=== PATIENT | female | born 1960 | race Caucasian/White ===

== ENCOUNTER 2020-07-10 17:18 | Outpatient (REF) | payer OTHER, SELFPAY ==
--- NOTE | 2020-07-10 17:23 | XR_ITS ---
EXAMINATION: XR KNEE, RIGHT CLINICAL INFORMATION: Right knee pain. COMPARISON: None TECHNIQUE: Four views of the right knee. FINDINGS: There is mild narrowing lateral knee joint compartment and mild narrowing patellofemoral joint. There is [id number] effusion. Hoffa's fat pad appears normal. There is no fracture or dislocation or destructive process. No erosive changes or visible chondrocalcinosis. There is no lateralization or tilting patella. XR/XR knee RT 4V IMPRESSION: 1. Mild narrowing lateral knee joint compartment and borderline narrowing patellofemoral joint. 2. Gshhi-gz-ovfadqus effusion.
== END 2020-07-10 17:19 | disposition home or self-care (01) ==
LOC: HO.XRAY 17:18
PROVIDERS: PCP Internal Medicine; Visit Provider Internal Medicine
DX: M25.561 Pain in right knee (principal)
CPT/HCPCS: 73564

== ENCOUNTER → 2020-10-02 13:47 | Outpatient (BNVA) | payer OTHER, SELFPAY | PROVIDERS: Visit Provider Orthopaedic Surgery | DX: M23.90 Unspecified internal derangement of unspecified knee (principal) | CPT/HCPCS: 20610; 99202; J1100 ==

== ENCOUNTER → 2021-01-01 14:19 | Outpatient (BNVA) | payer OTHER, SELFPAY | PROVIDERS: Visit Provider Orthopaedic Surgery | DX: M23.91 Unspecified internal derangement of right knee (principal) | CPT/HCPCS: 99212 ==

== ENCOUNTER 2021-01-23 19:14 | Outpatient (REF) | payer OTHER, SELFPAY ==
--- NOTE | ~2021-01-23 | MR_ITS ---
EXAMINATION: MR KNEE WITHOUT CONTRAST, RIGHT CLINICAL INFORMATION: Right knee pain for 6 months. COMPARISON: Right knee radiographs dated 07/10/2020. TECHNIQUE: MRI of the knee without contrast was performed using routine sequences on a high-field scanner. FINDINGS: MENISCI: Medial Meniscus: Obliquely oriented horizontal tearing in the periphery and central third of the posterior horn (4:7-9). Lateral Meniscus: Horizontal cleavage tear in the anterior horn extends into complex tearing of the body and posterior horn which are absent. Macerated meniscal tissue in is noted in the lateral recess. LIGAMENTS: Cruciate: Intact Collateral: Intact EXTENSOR MECHANISM: Intact ARTICULAR CARTILAGE/BONE: Patellofemoral Compartment: Tiny marginal spurs. Mild thinning of the median ridge articular cartilage inferiorly. Mild thinning of the bilateral trochlear articular cartilage. Medial Compartment: Focal thinning and fissuring of the weightbearing femoral condyle articular cartilage centrally (4:9), (5:10). Lateral Compartment: There is full-thickness cartilage loss of the femoral condyle and tibial plateau and posterior femoral condyle cartilage. Bone on bone articulation with underlying subchondral sclerosis and marked underlying subchondral edema. JOINT FLUID AND BURSAE: Moderate joint effusion and synovitis. MR/MR knee RT wo con IMPRESSION: Right knee: 1. Horizontal cleavage tear in the anterior horn of the lateral meniscus. Absent body and posterior horn of the lateral meniscus secondary to complex tearing. Macerated meniscal tissue noted in the lateral recess. 2. Obliquely oriented horizontal tearing in the periphery and central third of the posterior horn of the medial meniscus. 3. Complete cartilage loss throughout the lateral tibiofemoral compartment with [id number] articulation. Mild patellofemoral and medial patellofemoral compartment chondrosis. 4. Intact cruciate and collateral ligaments 5. Moderate joint effusion and synovitis.
== END 2021-01-23 19:15 | disposition home or self-care (01) ==
LOC: HO.MRI 19:14
PROVIDERS: PCP Internal Medicine; Visit Provider Orthopaedic Surgery
DX: M23.91 Unspecified internal derangement of right knee (principal)
CPT/HCPCS: 73721

== ENCOUNTER → 2021-02-02 15:04 | Outpatient (BNVA) | payer OTHER, SELFPAY | PROVIDERS: Visit Provider Orthopaedic Surgery | DX: M23.90 Unspecified internal derangement of unspecified knee (principal); M17.11 Unilateral primary osteoarthritis, right knee | CPT/HCPCS: 99212 ==

== ENCOUNTER → 2021-03-23 15:44 | Outpatient (BNVA) | payer OTHER, SELFPAY | PROVIDERS: PCP Internal Medicine; Visit Provider Physician Assistant ==

== ENCOUNTER 2021-03-25 06:06 | Day surgery (SDC) | payer OTHER, SELFPAY ==
[2021-02-13 08:39] VITALS: BMI 22.8
--- NOTE | 2021-02-17 08:17 | HO.ANESPROP2 ---
HPI - Anesthesia Eval Consult details Narrative: 60yo F for Right Knee Arthroscopy PMFSH Active Problems Active Problems: All Active Problems (Updated 02/13/21 @ 08:39 by Michelle Andrew) Arthritis of right knee (Acute) Knee locking (Acute) Rheumatoid arthritis (Acute) Osteoarthritis of hip (Acute) Past Medical History Medical History (Updated 02/13/21 @ 08:39 by Michelle Andrew) Depression High cholesterol Knee locking Osteoarthritis of hip Osteoporosis Rheumatoid arthritis Family History Family History Father Cancer Mother Bone cancer Osteoporosis Surgical History Surgical History (Updated 02/13/21 @ 08:38 by Michelle Andrew) H/O left wrist surgery History of hip replacement Hx of bilateral cataract extraction Hx of section Hx of colonoscopy Social History Social History (Updated 02/13/21 @ 08:41 by Michelle Andrew) Alcohol intake: current Alcohol intake frequency: holidays/special occasions only Patient Tobacco Use Status: Former Tobacco user Quit Date: 2014 Tobacco use type: Cigarette Current occupational status: disabled Current occupation: rt handed Meds Allergies Allergy/AdvReac Type Severity Reaction Status Date / Time acetaminophen [From Tylenol] AdvReac Intermediate nausea and Verified 02/13/21 08:35 vomitting codeine AdvReac Intermediate nausea and Verified 02/13/21 08:35 vomitting Home Medications Medication Instructions Recorded Confirmed Last Taken Type duloxetine 60 mg capsule,delayed 60 mg PO BEDTIME 06/24/20 02/13/21 Unknown History release atorvastatin 10 mg PO BEDTIME 02/13/21 02/13/21 Unknown History cholecalciferol (vitamin D3) 25 mcg PO BEDTIME 02/13/21 02/13/21 Unknown History [Vitamin D3] Exam Exam Date and Time: February 17, 2021 0817 Height,Weight and Vital Signs: Height 5 ft 2 in Weight 56.699 kg Assessment and Plan Assessment Anesthesia Assessment: Chart Reviewed
--- NOTE | 2021-03-24 10:22 | P.CONAN_ITS ---
Documented by User: Dot Prieto NP 03/24/21 10:24 HPI - Anesthesia Eval Consult details Narrative: 60yo F for Right Knee Arthroscopy PMFSH Active Problems Active Problems: All Active Problems (Updated 02/13/21 @ 08:39 by Michelle Andrew) Arthritis of right knee (Acute) Knee locking (Acute) Rheumatoid arthritis (Acute) Osteoarthritis of hip (Acute) Past Medical History Medical History Depression High cholesterol Knee locking Osteoarthritis of hip Osteoporosis Rheumatoid arthritis Family History Family History Father Cancer Mother Bone cancer Osteoporosis Surgical History Surgical History H/O left wrist surgery History of hip replacement Hx of bilateral cataract extraction Hx of section Hx of colonoscopy Social History Social History Alcohol intake: current Alcohol intake frequency: holidays/special occasions only Patient Tobacco Use Status: Former Tobacco user Quit Date: 2014 Tobacco use type: Cigarette Are you DNR?: No Advance Directives: No Advance Directives Information Provided: No Advance Directives on File: No Current occupational status: disabled Current occupation: rt handed Meds Allergies Allergy/AdvReac Type Severity Reaction Status Date / Time acetaminophen [From Tylenol] AdvReac Intermediate nausea and Verified 02/13/21 08:35 vomitting codeine AdvReac Intermediate nausea and Verified 02/13/21 08:35 vomitting Home Medications Medication Instructions Recorded Confirmed Last Taken Type atorvastatin 10 mg tablet 10 mg PO BEDTIME 02/13/21 02/13/21 Unknown History cholecalciferol (vitamin D3) 25 25 mcg PO BEDTIME 02/13/21 02/13/21 Unknown History mcg (1,000 unit) capsule (Vitamin D3) Exam Exam Date and Time: March 24, 2021 1022 Height,Weight and Vital Signs: Height 5 ft 2 in Weight 56.699 kg Assessment and Plan Assessment Anesthesia Assessment: Chart Reviewed Documented by User: Jolene Lujan MD 03/25/21 07:09 [facility] Past Medical History Medical History Depression High cholesterol Knee locking Osteoarthritis of hip Osteoporosis Rheumatoid arthritis Family History Family History Father Cancer Mother Bone cancer Osteoporosis Family history of problems with anesthesia: No Surgical History Surgical History H/O left wrist surgery History of hip replacement Hx of bilateral cataract extraction Hx of section Hx of colonoscopy History of Problems with Anesthesia: No Social History Social History Alcohol intake: current Alcohol intake frequency: holidays/special occasions only Patient Tobacco Use Status: Former Tobacco user Quit Date: 2014 Tobacco use type: Cigarette Are you DNR?: No Advance Directives: No Advance Directives Information Provided: No Advance Directives on File: No Current occupational status: disabled Current occupation: rt handed Meds Allergies Allergy/AdvReac Type Severity Reaction Status Date / Time acetaminophen [From Tylenol] AdvReac Intermediate nausea and Verified 02/13/21 08:35 vomitting codeine AdvReac Intermediate nausea and Verified 02/13/21 08:35 vomitting Home Medications Medication Instructions Recorded Confirmed Last Taken Type atorvastatin 10 mg tablet 10 mg PO BEDTIME 02/13/21 02/13/21 Unknown History cholecalciferol (vitamin D3) 25 25 mcg PO BEDTIME 02/13/21 02/13/21 Unknown History mcg (1,000 unit) capsule (Vitamin D3) Exam Airway Mallampati Class: II TM Dist: >3cm Neck ROM: Limited Assessment and Plan Assessment Anesthesia Assessment: Anesthesia Plan Discussed Final Anesthetic Review Family History of Problems with Anesthesia: No History of Problems with Anesthesia: No NPO: Yes ASA Class: II Final Preanesthetic Review: No Changes in Pt Med Stat, Meds/Allgs Chart Reviewed, Consent Obtained/Reviewed and Anes Risks/Benef Reviewed Patient Risk: Low Procedure Risk: Low Assessment/Block/Sedation in SS: Assess/Block/Sedation-SS Anesthetic Plan Anesthetic Plan: GA Disposition: Standard PACU
[2021-03-25] VITALS (13 sets, daily range): BP systolic 105–182; BP diastolic 60–91; PULSE 72–86; RESP 16–18; TEMP 36.6–37.1; O2SAT 94–99
[2021-03-25] MEDS: Lactated Ringers 1,000 ML 100 ML IVCONT (06:47)
--- NOTE | 2021-03-25 07:22 | MHC.SHP ---
Pre-Procedural Eval Section A Date of Service: 03/25/21 The patient is an INPATIENT: No Changes since office visit: Yes Patient answered all questions; No Cold of Flu in the past 2 weeks, No New Medical Problems and No Changes in Medication The History & Physical has been completed within 30 days and I have reviewed it.: Yes Section B Chief Complaint: internal derangement of knee Allergies: Allergies Allergy/AdvReac Type Severity Reaction Status Date / Time acetaminophen [From Tylenol] AdvReac Intermediate nausea and Verified 02/13/21 08:35 vomitting codeine AdvReac Intermediate nausea and Verified 02/13/21 08:35 vomitting Plan I have reviewed the history and physical and performed a pertinent physical examination on my patient. No changes have occurred unless specified.
--- NOTE | 2021-03-25 08:26 | P.BOP_ITS ---
Brief Operative Note Date of Service: 03/25/21 Pre-op diagnosis: right knee meniscus tear Post-op diagnosis: same Procedure: lateral meniscectomy right knee chondroplasty Surgeon: Tio Levy MD Anesthesia: GETA and local Was an Lead Network Architect used for this Procedure?: No Estimated blood loss (mL): 0 Tourniquet time (min): 30 IV fluids (mL): 800 Pathology: none sent Condition: stable Disposition: PACU
--- NOTE | 2021-03-25 08:31 | W.PM.OPN ---
Operative Note Operative Note Date of Service: 03/25/21 Narrative: Pre-op diagnosis: right knee meniscus tear Post-op diagnosis: same; OA right knee Procedure: lateral meniscectomy right knee chondroplasty Surgeon: Tio Levy MD Anesthesia: GETA and local Was an Joiners Supervisor used for this Procedure?: No Estimated blood loss (mL): 0 Tourniquet time (min): 30 IV fluids (mL): 800 Pathology: none sent Condition: stable Disposition: PACU Procedure in detail: Patient was brought to the operating room placed supine on the arthroscopic table and prepped and draped in standard sterile fashion. A time-out was called to identify proper site proper procedure proper surgeon and IV antibiotics per weight were administered. I began by exsanguinating the limb and insufflating tourniquet to 300 mm Hg. Then made a standard anterolateral stab incision. The knee was insufflated with water and 30 degree arthroscope was placed. There was grade 2 fibrillations of the patella. Trochlea was clean. There were chondral fragments in the lateral gutter. Medial gutter was clean. I descended into the medial compartment where I made my medial portal under direct visualization. There was an intact meniscus and a full thickness focal chondral defect in the weight bearing portion of MFC measuring about 1 cm x 5 mm. medial meniscus. This was debrided down to stable flaps. Medial meniscus was stable without tears. I then examined the notch and there was intact ACL but there was a bucket handle tear of the lateral meniscus that was completely displaced into the notch. This was chronic and unreduceable. Furthermore she had g4 eburnation of the weight bearing portion of the LFC and the LTP. I used a combination of biter shaver and cautery to remove the unstable meniscus. 100% of the meniscal volume was removed. Once I was satisfied with this I removed all instrumentation and closed the portals with skin glue. 25 mL of 2% Marcaine with epinephrine was injected into the joint and the surrounding soft tissues. Patient was then placed in sterile dressing extubated brought recovery room stable condition. There were no known complications.
[2021-03-25] MEDS: fentaNYL citrate/PF 100 MCG/2 ML VIAL 50 MCG IVPUSH ×4 (08:45→09:15)
[2021-03-25] MEDS: oxyCODONE HCl Immed Release 5 MG TABLET PO (08:45)
== END 2021-03-25 10:29 | disposition home or self-care (01) ==
PROVIDERS: PCP Internal Medicine; Visit Provider Orthopaedic Surgery
PROC: (CPT 29870; principal; 2021-03-25 07:30)
DX: S83.251A Bucket-handle tear of lateral meniscus, current injury, right knee, initial encounter (principal); M23.91 Unspecified internal derangement of right knee; M17.11 Unilateral primary osteoarthritis, right knee; R26.2 Difficulty in walking, not elsewhere classified; X58.XXXA Exposure to other specified factors, initial encounter; Y93.9 Activity, unspecified; Y92.9 Unspecified place or not applicable; Y99.8 Other external cause status; M81.0 Age-related osteoporosis without current pathological fracture; M06.9 Rheumatoid arthritis, unspecified; Z79.899 Other long term (current) drug therapy; Z88.8 Allergy status to other drugs, medicaments and biological substances; Z87.891 Personal history of nicotine dependence
CPT/HCPCS: 29881; J0171; J0690; J1100; J1885; J2250; J2405; J3010

== ENCOUNTER → 2021-04-10 13:12 | Outpatient (BNVA) | payer OTHER, SELFPAY | PROVIDERS: Visit Provider Physician Assistant | DX: M17.11 Unilateral primary osteoarthritis, right knee (principal); M81.0 Age-related osteoporosis without current pathological fracture; E78.00 Pure hypercholesterolemia, unspecified; S83.281A Other tear of lateral meniscus, current injury, right knee, initial encounter; X58.XXXA Exposure to other specified factors, initial encounter; Y93.9 Activity, unspecified; Y92.9 Unspecified place or not applicable; Y99.8 Other external cause status; Z88.6 Allergy status to analgesic agent; Z96.651 Presence of right artificial knee joint; Z87.891 Personal history of nicotine dependence | CPT/HCPCS: 99212 ==

== ENCOUNTER 2021-04-20 15:47 | Outpatient (REF) | payer OTHER, SELFPAY | END 2021-04-20 15:48 | disposition home or self-care (01) | LOC: HO.LAB 15:47 | PROVIDERS: PCP Internal Medicine; Visit Provider Internal Medicine | DX: Z20.822 Contact with and (suspected) exposure to COVID-19 (principal) | CPT/HCPCS: C9803; U0003; U0005 ==

== ENCOUNTER 2022-03-08 07:44 | Outpatient (REF) | payer OTHER, SELFPAY | END 2022-03-08 07:45 | disposition home or self-care (01) | LOC: HO.HOSX 07:44 | PROVIDERS: Visit Provider Physician Assistant | DX: M25.561 Pain in right knee (principal); M17.11 Unilateral primary osteoarthritis, right knee | CPT/HCPCS: 20610; 99212; J1040 ==

== ENCOUNTER 2022-03-29 11:58 | Outpatient (REF) | payer OTHER, SELFPAY | END 2022-03-29 11:59 | disposition home or self-care (01) | LOC: HO.HOSX 11:58 | PROVIDERS: Visit Provider Orthopaedic Surgery | DX: Z13.89 Encounter for screening for other disorder (principal) ==

== ENCOUNTER 2022-05-27 14:55 | Outpatient (REF) | payer OTHER, SELFPAY ==
--- NOTE | ~2022-05-27 | XR_ITS ---
EXAMINATION: XR PELVIS CLINICAL INFORMATION: Pain in unspecified hip COMPARISON: Sacrum and coccyx radiographs 03/21/2020 TECHNIQUE: AP view of the pelvis. FINDINGS: Left total hip arthroplasty. Hardware appears well seated without evidence of complication. There is heterotopic ossification adjacent the greater trochanter and left superior acetabulum. Moderate to severe axial joint space narrowing of the right hip with irregularity and subchondral cyst formation of the right femoral head. 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 No acute hip or pelvic fracture seen. Both sacroiliac joints are patent. XR/XR pelvis 1-2V IMPRESSION: Left total hip arthroplasty in satisfactory alignment. No complication evident. Moderate to severe osteoarthritis of the right hip with acetabular protrusio.
== END 2022-05-27 14:56 | disposition home or self-care (01) ==
LOC: HO.HOSX 14:55
PROVIDERS: Visit Provider Orthopaedic Surgery
DX: M16.11 Unilateral primary osteoarthritis, right hip (principal); Z96.642 Presence of left artificial hip joint; Z98.890 Other specified postprocedural states
CPT/HCPCS: 72170; 99212

== ENCOUNTER 2023-07-18 15:07 | Outpatient (AMB) | payer OTHER, SELFPAY ==
--- NOTE | 2023-07-18 15:08 | A.OFFVIS_ITS ---
Intake Vital Signs 07/18/23 15:12 Height 5 ft 2 in Weight 125 lb BMI 22.9 Intake Visit Reasons: New Prob - Right Hip Pain Intake Note: Radha is a 62 year old female who presents today for a follow up of her right hip Allergies acetaminophen [From Tylenol] Adverse Reaction (Intermediate, Verified 03/08/22 15:38) nausea and vomitting codeine Adverse Reaction (Intermediate, Verified 03/08/22 15:38) nausea and vomitting HPI New Prob - Right Hip Pain HPI Details Radha is a 62 year old woman who returns for a follow up of her right hip OA. She complains of pain with daily activity, localized to the groin. She denies any prior treatment. She has a left MARIO in 06/2015 in at an outside clinic, and she says her current right side symptoms are very similar to her left side prior to her surgery. [facility] Medical History Depression High cholesterol Knee locking Osteoarthritis of hip Osteoporosis Rheumatoid arthritis Surgical History H/O left wrist surgery History of hip replacement Hx of bilateral cataract extraction Hx of section Hx of colonoscopy Family History Father Cancer Mother Bone cancer Osteoporosis Social History Alcohol intake: current Alcohol intake frequency: holidays/special occasions only Patient Tobacco Use Status: Former Tobacco user Quit Date: 2014 Tobacco use type: Cigarette Current occupational status: disabled Current occupation: rt handed Review of Systems Const All systems reviewed & are unremarkable except as noted in HPI and below Physical Exam Vital Signs: BMI result Body Mass Index 22.9 Const General: no acute distress, alert and awake Orientation/consciousness: patient oriented x3 HEENT Head: Yes normocephalic and Yes atraumatic Eyes EOM: EOMs intact bilaterally Resp Effort & Inspection: normal respiratory effort and able to speak in complete sentences Cardio Jugular venous distension: no JVD Skin General skin exam: turgor normal Rashes: no rashes Neuro General: patient oriented x3 Extrem Other: + impingement +stinchfield 90/25/0 +gait antalgia Psych Appearance: grossly normal Affect: normal affect Attitude: cooperative Results Reviewed Results Reviewed: I personally reviewed relevant radiographs. Right hip OA with coxa profunda and Assessment & Plan Assessment & Plan (1) Osteoarthritis of hip: Code(s): M16.9 - Osteoarthritis of hip, unspecified Plan: 62 yo F with right hip OA. She is unable to walk without pain and had a successful left MARIO. I recommend left hip arthroplasty. SHe has been scheduled in the past but it was cancelled during [facility]. I discussed the risks benefits and alternatives including but not limited to the risk of pain, infection, stiffness, need for further surgery as well as potential medical complications such as blood clots, pulmonary embolism and cardiac complications. She expressed understanding and will talk with our surgical assist. Plan Scribed for Tio Levy MD by Óscar Elizabeth, medical assisting instructor, on 07/18/23 at 3:20 PM, EST. Coding Level of Care Code Est Pt Level 4 (83717) Diagnoses Osteoarthritis of hip M16.9
[2023-07-18 15:12] VITALS: BMI 22.9
== END 2023-07-18 16:05 | disposition home or self-care (01) ==
PROVIDERS: PCP Internal Medicine; Visit Provider Orthopaedic Surgery
DX: M16.11 Unilateral primary osteoarthritis, right hip (principal)
CPT/HCPCS: 99214

== ENCOUNTER → 2023-07-18 15:07 | Outpatient (BNVA) | payer OTHER, SELFPAY | PROVIDERS: PCP Internal Medicine; Visit Provider Orthopaedic Surgery | DX: M16.9 Osteoarthritis of hip, unspecified (principal) | CPT/HCPCS: 99212; J0665; J1100 ==

== ENCOUNTER 2023-11-11 14:55 | Outpatient (AMB) | payer OTHER, SELFPAY ==
--- NOTE | 2023-11-11 15:08 | A.OFFPC_ITS ---
Vital Signs 11/11/23 15:09 Height 5 ft 2 in Weight 121 lb 8 oz BMI 22.2 BP 102/62 Blood Pressure Location Lt brachial Position Sitting Respiration 16 Pulse 75 Pulse Source Pulse Oximeter Pulse Oximetry (%) 96 Oxygen Delivery Method Room Air Intake Visit Reasons: PCP preop clearance for surgery 10/25/23 Intake Note: Patient is here for a Pre-OP of the right total hip arthroplasty with Dr. Tio Levy on December 13, 2023. The patient will need to undergo an EKG, BMP, and CBC with differential. 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 Accompanied by: Self / Same As Patient Allergies acetaminophen [From Tylenol] Adverse Reaction (Intermediate, Verified 11/11/23 15:56) nausea and vomitting codeine Adverse Reaction (Intermediate, Verified 11/11/23 15:56) nausea and vomitting Medication List - Last Reconciled 11/11/23 by Juan Carpenter MD [Grab Bar As directed] [Raised toilet seat As directed] [SHOWER CHAIR As directed] walker Folding Front wheeled walker Tobacco use date assessed: 11/11/23 Dental Screening Dental Screen Date: 11/11/23 Did you have a dental visit in the last 12 months?: No Did you have a dental problem in the last 6 months where you did not have access to dental care?: No Was dental information given to patient?: Patient has dentist HPI PCP preop clearance for surgery 10/25/23 HPI Details Patient comes in today at the request of Dr. Tio Levy for a preoperative medical examination for clearance for surgery She is scheduled for a total right hip arthroplasty under general anesthesia with Dr. Levy on 12/13/2023 Patient was last seen by me over 3 years ago on 03/12/2020 States that since her last visit here, she has reportedly stopped taking all of her Rx and is currently on no prescription or regular medications, including her cholesterol Rx and anti-depressants She recalls going through some withdrawal symptoms for a while from her opioid Rx and that she was on Suboxone for a period of time back in 2021 She has been struggling with increasing right hip pain and knee pains over the past few years and was advised by orthopedics to have her right hip taken care of first States that she had her left hip replacement surgery done in 2014 and her left hip has not bothered her much since She denies any headaches or dizziness Denies any chest pains, no SOB No nausea/vomiting, no abdominal pain No change in bowel habits noted PFSH Medical History (Updated 11/13/23 @ 21:28 by Juan Carpenter MD) History of opiate therapy Vitamin D deficiency Asthma Pure hypercholesterolemia Primary osteoarthritis of right hip Depression Osteoporosis Knee locking Osteoarthritis of hip Surgical History (Updated 11/13/23 @ 21:07 by Juan Carpenter MD) History of total left hip arthroplasty Hx of bilateral cataract extraction Hx of colonoscopy Hx of section H/O left wrist surgery Family History Father Cancer Mother Bone cancer Osteoporosis Social History Housing: House Alcohol intake: current Alcohol intake frequency: holidays/special occasions only Patient Tobacco Use Status: Former Tobacco user Quit Date: 2014 Tobacco use type: Cigarette e-Cigarette/Vaping Use: Never Used service: No Current occupational status: disabled Current occupation: rt handed Cognitive needs: No Hearing needs: No Vision needs: No Questionnaire PHQ-9 Over the last 2 weeks, how often have you been bothered by any of the following problems? 1. Little interest or pleasure in doing things: not at all 2. Feeling down, depressed, or hopeless: not at all 3. Trouble falling or staying asleep, or sleeping too much: not at all 4. Feeling tired or having little energy: not at all 5. Poor appetite or overeating: not at all 6. Feeling bad about yourself - or that you are a failure or have let yourself or your family down: not at all 7. Trouble concentrating on things, such as reading the newspaper or watching television: not at all 8. Moving or speaking so slowly that other people could have noticed. Or the opposite - being so fidgety or restless that you have been moving around a lot more than usual: not at all 9. Thoughts that you would be better off or of hurting yourself in some way: not at all Total score: 0 Depression Screening Interpretation: Negative Depression Screening Done: Yes 21011 - PHQ-9 Billing: Yes Source: Developed by Drs. Kobe Maldonado, Du Werner and colleagues, with an educational avis from [employer]. Thrive Questionnaire Date Thrive assessed: 11/11/23 I am a: Patient What is your living situation today?: I have a steady place to live Within the past 12 months, did the food you bought not last and you didn't have the money to get more?: Never true Within the past 12 months, did you worry whether your food would run out before you got money to buy more?: Never true Do you have trouble paying for medicines?: No Do you have trouble getting transportation to medical appointments?: No Do you have trouble paying your heating and electricity bill?: No Do you have trouble taking care of your child, family member or friend?: No Do you have trouble with day-to-day activities such as bathing, preparing meals, shopping, managing finances, etc.?: No Are you interested in more education?: No Please select the resources that you would like help with: None Currently or been in a relationship where the following occur: no concerns reported THRIVE Score: 0 AUDIT C Alcohol Use Questionnaire (AUDIT-C) 1. How often do you have a drink containing alcohol?: Never 3. How often do you have six or more drinks on one occasion?: Never Total Score: 0 Score Reviewed/Action Taken: Yes YANICK-7 AMB Questionnaire YANICK-7 Date YANICK - 7 assessed: 11/11/23 Feeling nervous, anxious, or on edge: 2 = More than half the days Not being able to stop or control worryin = Not at all Worrying too much about different things: 1 = Several days Trouble relaxin = Several days Being so restless that it is hard to sit still: 0 = Not at all Becoming easily annoyed or irritable: 2 = More than half the days Feeling afraid as if something awful might happen: 2 = More than half the days Total YANICK-7 score (0-4 normal; 5-9 mild; 10-14 moderate; 15-21 severe): 8 Source: Developed by Drs. Kobe Maldonado, Du Werner and colleagues, with an educational avis from [employer]. YANICK-7 Assessment Billing YANICK-7 Assessment Tool: YANICK-7 Assessment 32199 Review of Systems Const Denies chills, Reports fatigue, Denies fever(s) and Denies headache(s) ENT Denies dysphagia, Denies dizziness, Denies otalgia, Denies headache(s), Denies neck pain, Denies odynophagia and Denies sore throat Card Denies chest pain, Denies rapid heart rate, Denies irregular heart rhythm, Denies palpitations and Denies dyspnea Resp Denies cough, Denies dyspnea and Denies wheezing GI Denies abdominal pain, Denies constipation, Denies dysphagia, Denies diarrhea, Denies nausea, Denies odynophagia and Denies vomiting Denies nocturia, Denies dysuria and Denies urinary urgency Musc Reports arthralgias (increased over the right hip and over both knees) and Denies neck pain Skin/Breast Denies rash Neuro Denies dizziness and Denies headache(s) Endo Reports fatigue and Denies palpitations Aller/Immun Denies wheezing Physical exam (Primary Care) Vital Signs: Last Vital Signs Pulse 75 11/11/23 15:09 Resp 16 11/11/23 15:09 BP 102/62 11/11/23 15:09 Pulse Ox 96 11/11/23 15:09 Oxygen Delivery Method Room Air 11/11/23 15:09 BMI result Body Mass Index 22.2 Tobacco/Smoking Status: Tobacco use Status Tobacco use date assessed 11/11/23 11/11/23 15:18 Patient Tobacco Use Status Former Tobacco user 11/11/23 15:09 Tobacco use type Cigarette 11/11/23 15:09 e-Cigarette/Vaping Use Never Used 11/11/23 15:18 PHQ-9: PHQ-9 Score PHQ-9: Total score 0 11/11/23 16:41 Depression Screening Interpretation: Negative Thrive Assessment: Date of Thrive Assessment Date Thrive assessed 11/11/23 11/11/23 15:15 Currently or been in a relationship where the following occur: no concerns reported Const General: no acute distress and alert HENMT Ears: TM's normal bilaterally and EAC's normal Throat: Yes posterior oropharynx normal and Yes tonsils normal (no TP congestion) Neck Neck: Yes no lymphadenopathy and Yes supple Resp Auscultation: clear to auscultation bilaterally, no rales and no wheezes Cardio Rate: regular rate Rhythm: regular rhythm Heart sounds: no murmurs GI Palpation (GI): Soft to palpation, nontender and No hepatosplenomegaly present Skin General skin exam: no rashes or lesions noted Extrem General: Yes no clubbing, cyanosis or edema Assessment and Plan Assessment & Plan (1) Preoperative examination: Code(s): Z01.818 - Encounter for other preprocedural examination Plan: Patient presents with acceptable risks for planned intermediate cardiac risk procedure In-office EKG done today came out normal - NSR with no acute ST-T wave changes - copy of EKG attached for review Will send patient for some preop labs NAM to complete her evaluation (2) Primary osteoarthritis of right hip: Code(s): M16.11 - Unilateral primary osteoarthritis, right hip Plan: She is scheduled for a total right hip arthroplasty under general anesthesia with Dr. Levy on 12/13/2023 (3) Pure hypercholesterolemia: Code(s): E78.00 - Pure hypercholesterolemia, unspecified Plan: Reinforced low cholesterol diet She was on Atorvastatin 10 mg QD in the past but she reportedly has not taken any Rx in the past couple of years Her total cholesterol was at 183 mg/dl and LDL cholesterol was at 116 mg/dl when they were last checked in 08/2019 (she was still taking Rx at the time) Will have her also recheck her fasting lipids NAM for follow up (4) Asthma: Code(s): J45.909 - Unspecified asthma, uncomplicated Qualifiers: Asthma severity: mild Asthma persistence: intermittent Asthma complication type: uncomplicated Qualified Code(s): J45.20 - Mild intermittent asthma, uncomplicated Plan: Appears stable Patient used to take Montelukast 10 mg QD for her asthma and hardly had to use any rescue inhalers in the past (5) Vitamin D deficiency: Code(s): E55.9 - Vitamin D deficiency, unspecified Plan: She also has not taken any Vitamin supplements in a while now and will recheck her Vitamin D level for follow up Plan Patient currently does not appear to have any contraindications for planned right hip replacement surgery As she was lost to follow up for over 3 years (has not been back since 07/2020), we have yet to determine if she is medically optimized for surgery In-office EKG done today came out normal; her blood pressure today also appears normal and she reportedly has had no significant cardiac or pulmonary issues over the past few years Will send her for some preop labs NAM - patient is advised that she needs to get these done as soon as she can for us to be able to complete her evaluation Final medical clearance and eligibility for planned intermediate cardiac risk procedure will be determined once her lab results are available for review Follow up in 6 months Orders: Orders Complete Blood Count Auto Diff 11/11/23 D64.9 - Anemia, unspecified, Z01.818 - Encounter for other preprocedural examination TSH reflex Free T4 11/11/23 E78.00 - Pure hypercholesterolemia, unspecified, Z01.818 - Encounter for other preprocedural examination UA CC w/rflx Micro + Cult 11/11/23 R30.0 - Dysuria, Z01.818 - Encounter for other preprocedural examination Vitamin D 25-OH Total 11/11/23 E55.9 - Vitamin D deficiency, unspecified, Z01.818 - Encounter for other preprocedural examination Comprehensive [place]. Panel Fast 11/11/23 E78.00 - Pure hypercholesterolemia, unspecified, Z01.818 - Encounter for other preprocedural examination Lipid Panel 11/11/23 E78.00 - Pure hypercholesterolemia, unspecified, Z01.818 - Encounter for other preprocedural examination Coding Level of Care Code Est Pt Level 4 (79040) Diagnoses Preoperative examination Z01.818 Primary osteoarthritis of right hip M16.11 Pure hypercholesterolemia E78.00 Mild intermittent asthma without complication J45.20 Asthma severity: mild Asthma persistence: intermittent Asthma complication type: uncomplicated Vitamin D deficiency E55.9 Additional Codes YANICK-7 Assessment Billing - YANICK-7 Assessment Tool: YANICK-7 Assessment [id number] ([id number])
[2023-11-11 15:09] VITALS: BP 102/62; PULSE 75; RESP 16; O2SAT 96; BMI 22.2
== END 2023-11-11 16:14 | disposition home or self-care (01) ==
PROVIDERS: PCP Internal Medicine; Visit Provider Internal Medicine
DX: Z01.818 Encounter for other preprocedural examination (principal); M16.11 Unilateral primary osteoarthritis, right hip; E78.00 Pure hypercholesterolemia, unspecified; J45.20 Mild intermittent asthma, uncomplicated; E55.9 Vitamin D deficiency, unspecified
CPT/HCPCS: 99214

== ENCOUNTER 2023-11-30 13:53 | Outpatient (REF) | payer OTHER, SELFPAY ==
[2023-11-30 14:05] LABS: MANUAL DIFF FLAG NO
[2023-11-30 15:16] LABS: Appearance Urine Clear; Color Urine Yellow; Glucose Urine UA Negative (Negative); Leukocyte Esterase Urine Negative (Negative); Nitrite Urine Negative (Negative); Specific Gravity - Urine 1.025 (1.005-1.025); Urine Blood Negative (Negative); Urine Ketones Negative (Negative); Urine Protein Negative (Neg-Trace)
[2023-11-30 15:16] LABS: Basophils Percent Auto 0.6 % (0-2); Eosinophils Absolute Auto 0.1 X10*3/uL (0.0-0.4); Eosinophils Percent Auto 1.3 % (0-4); Hematocrit 40.8 % (37.0-47.0); Hemoglobin 13.6 g/dl (12.0-16.0); Imm Gran Abs Auto 0.01 X10*3/uL (0.00-0.03); Imm Gran Pct Auto 0.1 % (0.0-0.4); Lymphocytes Absolute Auto 1.1 X10*3/uL (1.2-4.9); Mean Corpuscular HGB Conc 33.3 g/dl (31.0-35.0); Mean Corpuscular Hemoglobin 30.6 pg (27.0-33.0); Mean Corpuscular Volume 91.7 fL (80.0-98.0); Mean Platelet Volume 10.1 fL (9.4-12.3); Monocytes Absolute Auto 0.4 X10*3/uL (0.1-1.2); Monocytes Percent Auto 6.2 % (2-11); Neutrophils Absolute Auto 5.5 x10*3/uL (2.0-8.3); Neutrophils Percent Auto 76.8 % (45-73); Platelet Count 218 X10*3/uL (160-400); Red Blood Count 4.45 X10*6/uL (4.20-5.50); Red Cell Distribution Width 14.2 % (11.0-16.0); White Blood Count 7.1 X10*3/uL (4.8-10.8)
[2023-11-30 15:43] LABS: Alanine Aminotransferase 13 U/L (0-31); Albumin Level 4.4 g/dL (3.5-5.0); Alkaline Phosphatase 77 U/L (39-117); Anion Gap 11 (12-20); Aspartate Amino Transferase 23 U/L (5-31); Bilirubin Total 0.6 mg/dL (0.0-1.0); Blood Urea Nitrogen 20 mg/dL (9-16); Calcium 9.6 mg/dL (8.4-10.2); Carbon Dioxide 29 mmol/L (22-29); Chloride 107 mmol/L (96-108); Cholesterol 183 mg/dL (<200); Estimated Glomerular Filt Rate > 60; Glucose Fasting 96 mg/dL (60-99); HDL Cholesterol 52 mg/dL (>40); LDL Cholesterol Calculated 119 mg/dL (<100); Potassium 4.6 mmol/L (3.3-5.1); Sodium 142 mmol/L (135-145); Total Protein 7.8 g/dL (6.5-8.0); Triglycerides 63 mg/dL (<150)
[2023-11-30 15:54] LABS: TSH reflex Free T4 1.35 uIU/mL (0.32-4.0); Vitamin D 25-OH Total 34.6 ng/mL (>30)
== END 2023-11-30 13:54 | disposition home or self-care (01) ==
LOC: HO.LAB 13:53
PROVIDERS: PCP Internal Medicine; Visit Provider Internal Medicine
DX: Z01.818 Encounter for other preprocedural examination (principal); D64.9 Anemia, unspecified; E78.00 Pure hypercholesterolemia, unspecified; R30.0 Dysuria; E55.9 Vitamin D deficiency, unspecified
CPT/HCPCS: 36415; 80053; 80061; 81003; 82306; 84443; 85025

== ENCOUNTER 2023-12-08 06:54 | Outpatient (REF) | payer OTHER, SELFPAY ==
--- NOTE | ~2023-12-08 | XR_ITS ---
EXAMINATION: XR HIP, RIGHT CLINICAL INFORMATION: Pain in right hip, preop. COMPARISON: X-ray pelvis 05/27/2022. TECHNIQUE: AP view of the pelvis and 2 views of the right hip. FINDINGS: Horizontal and rounded radiopaque markers overlying the central pelvis. Bones are diffusely demineralized. Redemonstration of left total hip arthroplasty which appears intact on single AP view provided. Redemonstration of heterotopic ossification adjacent to the left hip. Right Hip: Redemonstration of jyqyaaji-lv-wddgxi axial joint space narrowing of the right hip with subchondral sclerosis and cyst formation of the right femoral head. Right acetabular protrusio. Bilateral sacroiliac joints are symmetric. Degenerative changes in the imaged lower lumbar spine. XR/XR hip RT min 2V IMPRESSION: Redemonstration of moderate to severe degenerative changes of the right hip with redemonstration of right acetabular protrusio.
== END 2023-12-08 06:55 | disposition home or self-care (01) ==
LOC: HO.HOSX 06:54
PROVIDERS: Visit Provider Physician Assistant
DX: M16.11 Unilateral primary osteoarthritis, right hip (principal)
CPT/HCPCS: 73502; 99212

== ENCOUNTER 2023-12-08 13:14 | Outpatient (AMB) | payer OTHER, SELFPAY ==
--- NOTE | 2023-12-08 06:53 | A.OFFVIS_ITS ---
Vital Signs 12/08/23 13:28 Height 5 ft 2 in Weight 121 lb BMI 22.1 Intake Visit Reasons: Preop RT MARIO 12/13/23 NE Intake Note: Radha 62 yr old female presents today for her pre op visit for her right MARIO scheduled for 12/13/[address] Levy. Pain management agreement signed and reviewed. Allergies codeine Adverse Reaction (Intermediate, Verified 11/11/23 15:56) nausea and vomitting Medication List - Last Reconciled 12/08/23 by Aminata Root PA-C acetaminophen 650 mg PO BID PRN [Grab Bar As directed] [Leg Implementation Project Coordinator As directed] kjavlofd-ixb-mxum-FA-vit K-lut 4 mg iron-200 mcg-25 mcg (Centrum Minis Women 50 Plus) 1 tab PO DAILY [Raised toilet seat As directed] [SHOWER CHAIR As directed] [stackable bath steps As directed] walker Folding Front wheeled walker HPI Comments Details: Ms Martínez presents to the office today for preop visit. She is scheduled for right total hip arthroplasty with Dr. Levy. She continues to have ongoing pain and difficulty with ambulation in the right hip, which is affecting her quality of life; therefore, she has elected to move forward with surgery. She underwent LT MARIO in 2014 through [facility] without any complications. No h/o DVT or PE. No h/o cancer. She quit smoking approx 20 years ago. [facility] Medical History (Updated 12/02/23 @ 12:39 by Dot Prieto NP) Rheumatoid arthritis Arthritis Bowel obstruction Swelling of lower extremity Elevated cholesterol History of opiate therapy Vitamin D deficiency Pure hypercholesterolemia Primary osteoarthritis of right hip Depression Osteoporosis Knee locking Osteoarthritis of hip Surgical History (Updated 12/02/23 @ 12:01 by Josephine Sky RN) Hx of arthroscopy of right knee History of total left hip arthroplasty Hx of bilateral cataract extraction Hx of colonoscopy Hx of section H/O left wrist surgery Family History Father Cancer Mother Bone cancer Osteoporosis Social History Housing: House Are you a primary day care supervisor to a significant other at home: No Do you presently have visiting nurse or other home services: No Alcohol intake: current Alcohol intake frequency: does not drink Patient Tobacco Use Status: Former Tobacco user Quit Date: 1999 Tobacco use type: Cigarette e-Cigarette/Vaping Use: Never Used service: No Current occupational status: disabled Current occupation: rt handed Cognitive needs: No Hearing needs: No Vision needs: No Review of Systems Const All systems reviewed & are unremarkable except as noted in HPI and below Physical Exam Vital Signs: BMI result Body Mass Index 22.1 Const General: cooperative and no acute distress Orientation/consciousness: patient oriented x3 HEENT Head: Yes normal to inspection, Yes normocephalic and Yes atraumatic Eyes General: appearance normal, both eyes and all related structures Neck Neck: Yes normal visual inspection and Yes no lymphadenopathy Resp Effort & Inspection: normal respiratory effort and able to speak in complete sentences Cardio Rate: regular rate Peripheral pulses: Peripheral pulses 2+ throughout GI Inspection: Yes normal to inspection Palpation (GI): Soft to palpation Skin General skin exam: no rashes or lesions noted Neuro General: patient oriented x3 Extrem Other: Right hip: Normal to inspection. Pain with ROM and hip flexion. NVI. Psych Appearance: grossly normal Mental Status: mental status grossly normal Results Reviewed Results Reviewed: PCP clearance Plan Patient currently does not appear to have any contraindications for planned right hip replacement surgery As she was lost to follow up for over 3 years (has not been back since 07/2020), we have yet to determine if she is medically optimized for surgery In-office EKG done today came out normal; her blood pressure today also appears normal and she reportedly has had no significant cardiac or pulmonary issues over the past few years Will send her for some preop labs NAM - patient is advised that she needs to get these done as soon as she can for us to be able to complete her evaluation Final medical clearance and eligibility for planned intermediate cardiac risk procedure will be determined once her lab results are available for review Assessment & Plan Assessment & Plan (1) Osteoarthritis of right hip: Code(s): M16.11 - Unilateral primary osteoarthritis, right hip Category: Medical Plan: I discussed in detail the procedure and what to expect pre and post operatively. We discussed the risks, benefits and alternatives to the surgery as well as the rehabilitation course. The risks; which include, but are not limited to infection, bleeding, nerve injury, ongoing pain, swelling, and stiffness, perioperative risk of injury to bones and soft tissues, and blood clots. I?ve answered all questions and with their understanding they have consented to move forward with Right total hip arthroplasty with Dr. Levy PT order placed, DME rx faxed. Orders: Orders XR hip RT min 2V Today M25.551 - Pain in right hip PT Evaluation and Treatment Today Z96.641 - Presence of right artificial hip joint Patient Instructions: Scribed for Amniata Root PA-C, by Kamran Rivas medical insurance claims processor, on 12/08/2023 at 1:15 PM EST. I, Aminata Root PA-C, have personally reviewed and agree with the information entered by the scribe. Coding Level of Care Code Est Pt Level 3 (15131) Diagnoses Osteoarthritis of right hip M16.11
[2023-12-08 13:28] VITALS: BMI 22.1
== END 2023-12-08 15:08 | disposition home or self-care (01) ==
PROVIDERS: PCP Internal Medicine; Visit Provider Physician Assistant
DX: M16.11 Unilateral primary osteoarthritis, right hip (principal)
CPT/HCPCS: 99024

== ENCOUNTER 2023-12-13 06:55 | Inpatient (IN) | payer OTHER, SELFPAY ==
[2023-12-02 12:16] VITALS: BP 154/71; PULSE 73; RESP 18; O2SAT 95; BMI 23.2
--- NOTE | 2023-12-02 12:36 | P.CONAN_ITS ---
Documented by User: Dot Prieto NP 12/02/23 12:44 HPI - Anesthesia Eval Consult details Narrative: 62yo F for Right Hip Total Replacement, 12/13/23 Medically cleared No recent illness No SOB/CP within limits of pain s/p left side 2014 RA. No tx PMFSH Active Problems Active Problems: All Active Problems Asthma (Acute) Preoperative examination (Acute) Osteoarthritis of right hip (Acute) S/P lateral meniscectomy of right knee (Acute) Tear of lateral meniscus of right knee (Acute) Arthritis of right knee (Acute) Vitamin D deficiency (Acute) Pure hypercholesterolemia (Acute) Primary osteoarthritis of right hip (Acute) Knee locking (Acute) Osteoarthritis of hip (Acute) Past Medical History Medical History Rheumatoid arthritis Arthritis Bowel obstruction Swelling of lower extremity Elevated cholesterol History of opiate therapy Vitamin D deficiency Pure hypercholesterolemia Primary osteoarthritis of right hip Depression Osteoporosis Knee locking Osteoarthritis of hip Family History Family History Father Cancer Mother Bone cancer Osteoporosis Family history of problems with anesthesia: No Surgical History Surgical History Hx of arthroscopy of right knee History of total left hip arthroplasty Hx of bilateral cataract extraction Hx of colonoscopy Hx of section H/O left wrist surgery History of Problems with Anesthesia: No Social History Social History Housing: House Are you a primary customer care consultant to a significant other at home: No Do you presently have visiting nurse or other home services: No Alcohol intake: current Alcohol intake frequency: does not drink Patient Tobacco Use Status: Former Tobacco user Quit Date: 1999 Tobacco use type: Cigarette e-Cigarette/Vaping Use: Never Used Use of substances other than those prescribed or required for medical reasons: Yes Substance Use Type Other:: gummie Substance Use Frequency: Weekly Have you been hit, kicked, punched, or otherwise hurt by someone within the past year? If so, by whom?: No Are you DNR?: No Advance Directives: No Advance Directives Information Provided: No Advance Directives on File: No Recently lost weight without trying: No Eating poorly because of decreased appetite: No Nutrition Risks: No Nutritional Risk Patient : No : No Poor oral hygiene: Yes (full upper denture, missing teeth on the bottom) service: No Current occupational status: disabled Current occupation: rt handed Cognitive needs: No Hearing needs: No Vision needs: No Meds Allergies Allergy/AdvReac Type Severity Reaction Status Date / Time codeine AdvReac Intermediate nausea and Verified 11/11/23 15:56 vomitting Home Medications ?Medication ?Instructions ?Recorded ?Confirmed ?Last Taken ?Type acetaminophen 325 mg tablet 650 mg PO BID PRN Pain 12/02/23 12/08/23 12/13/23 History lexpcvem-egz-iaas 4 mg-folic acid 1 tab PO DAILY 12/02/23 12/08/23 12/13/23 History 200 mcg-vit K 25 mcg-lutein tablet (Centrum Minis Women 50 Plus) Exam Height,Weight and Vital Signs: Height 5 ft 2 in Weight 57.606 kg Last Vital Signs Pulse 73 12/02/23 12:16 Resp 18 12/02/23 12:16 BP 154/71 H 12/02/23 12:16 Pulse Ox 95 12/02/23 12:16 O2 Del Method Room Air 12/02/23 12:16 Narrative Narrative: EKG 11/2023 NSR @ 66 Airway Mallampati Class: I TM Dist: >3cm Neck ROM: Full Denture: Upper Loose/Missing/Broken Teeth: Yes (Lower front teeth broken, none loose. Lower molars missing) Heart: RRR Lungs: CTAB Assessment and Plan Assessment Anesthesia Assessment: Anesthesia Plan Discussed and PAT Visit Final Anesthetic Review Family History of Problems with Anesthesia: No History of Problems with Anesthesia: No Documented by User: Cha Montenegro MD 12/13/23 09:29 [facility] Past Medical History Medical History Rheumatoid arthritis Arthritis Bowel obstruction Swelling of lower extremity Elevated cholesterol History of opiate therapy Vitamin D deficiency Pure hypercholesterolemia Primary osteoarthritis of right hip Depression Osteoporosis Knee locking Osteoarthritis of hip Family History Family History Father Cancer Mother Bone cancer Osteoporosis Surgical History Surgical History Hx of arthroscopy of right knee History of total left hip arthroplasty Hx of bilateral cataract extraction Hx of colonoscopy Hx of section H/O left wrist surgery Social History Social History Housing: House Are you a primary customer care consultant to a significant other at home: No Do you presently have visiting nurse or other home services: No Alcohol intake: current Alcohol intake frequency: does not drink Patient Tobacco Use Status: Former Tobacco user Quit Date: 1999 Tobacco use type: Cigarette e-Cigarette/Vaping Use: Never Used Use of substances other than those prescribed or required for medical reasons: Yes Substance Use Type Other:: gummie Substance Use Frequency: Weekly Have you been hit, kicked, punched, or otherwise hurt by someone within the past year? If so, by whom?: No Are you DNR?: No Advance Directives: No Advance Directives Information Provided: No Advance Directives on File: No Recently lost weight without trying: No Eating poorly because of decreased appetite: No Nutrition Risks: No Nutritional Risk Patient : No : No Poor oral hygiene: Yes (full upper denture, missing teeth on the bottom) service: No Current occupational status: disabled Current occupation: rt handed Cognitive needs: No Hearing needs: No Vision needs: No Meds Allergies Allergy/AdvReac Type Severity Reaction Status Date / Time codeine AdvReac Intermediate nausea and Verified 11/11/23 15:56 vomitting Home Medications ?Medication ?Instructions ?Recorded ?Confirmed ?Last Taken ?Type acetaminophen 325 mg tablet 650 mg PO BID PRN Pain 12/02/23 12/08/23 12/13/23 History mbbqedfb-tka-szus 4 mg-folic acid 1 tab PO DAILY 12/02/23 12/08/23 12/13/23 History 200 mcg-vit K 25 mcg-lutein tablet (Centrum Minis Women 50 Plus) Assessment and Plan Assessment Anesthesia Assessment: Chart Reviewed Final Anesthetic Review NPO: Yes ASA Class: III Final Preanesthetic Review: No Changes in Pt Med Stat, Meds/Allgs Chart Reviewed, Consent Obtained/Reviewed and Anes Risks/Benef Reviewed Patient Risk: Intermediate Procedure Risk: Intermediate Anesthetic Plan Disposition: Standard PACU
[2023-12-02 14:31] LABS: MRSA Nasal PCR NEGATIVE (Negative); SA Nasal PCR NEGATIVE (Negative)
[2023-12-13] VITALS (15 sets, daily range): BP systolic 112–190; BP diastolic 56–97; PULSE 62–84; RESP 11–18; TEMP 36.1–37.2; O2SAT 97–100
--- NOTE | ~2023-12-13 | XR_ITS ---
EXAMINATION: XR PELVIS CLINICAL INFORMATION: Status-post right total hip arthroplasty. COMPARISON: AP pelvis dated 05/27/2022; right hip radiographs dated 12/08/2023. TECHNIQUE: AP view of the pelvis. FINDINGS: Prosthetic components of the bilateral total hip arthroplasties are appropriately aligned. No periprosthetic fracture. There is bony demineralization. The soft tissue planes are unremarkable. XR/XR pelvis 1-2V IMPRESSION: There are intact bilateral total hip arthroplasties. No hardware failure or loosening is seen.
--- OUTSIDE RECORDS SUMMARY | 2023-12-13 06:59 | XMS_ITS | Continuity of Care Document ---
Author Organization [facility] ter Address [address] [place] [id number]- Care Team Providers Care Air Turning Machine Feeder Name Role Phone Juan Carpenter MD Primary Care Physician Encounter [facility] Date(s): 11/11/19 - 11/11/[address] [address]- [facility] Encounter Diagnosis Opiate overdose(Final) - 11/11/19 Discharge Disposition: A-D/C Home Attending Physician: Kvng Sanchez MD Admitting Physician: Kvng Sanchez MD Referring Physician: Not on Staff, Referring MD Allergies, Adverse Reactions, Alerts Substance Reaction Severity Status NKA Active Medications Narcan 4 mg/0.1 mL nasal spray = 4 mg, Nares, Both, Once, # 2 each, 0 Refills, Soft Stop, 11/11/19 6:23:00 EDT Start Date: 11/11/19 Status: Ordered Vital Signs Most recent to oldest [Reference Range]: 1 2 3 Oxygen Saturation [94-100 %] 97 % (11/11/19 6:37 AM) 98 % (11/11/19 4:41 AM) 100 % (11/11/19 3:33 AM) Pulse Rate [55-90 bpm] 96 bpm *H* (11/11/19 6:37 AM) 88 bpm (11/11/19 4:41 AM) 92 bpm *H* (11/11/19 3:33 AM) Blood Pressure [90-138/55-84 mm Hg] 126/69mm Hg (11/11/19 6:37 AM) 147/65mm Hg *H* (11/11/19 4:41 AM) 176/88mm Hg *H* (11/11/19 3:33 AM) Respiratory Rate [16-30 br/min] 18 br/min (11/11/19 6:37 AM) 22 br/min (11/11/19 4:41 AM) 14 br/min *L* (11/11/19 3:33 AM) Temperature [96.8-100.4 DegF] 98.1 DegF (11/11/19 3:33 AM) Liters per Minute 10 L/min (11/11/19 3:23 AM) Mode of Delivery (Oxygen) Room air (11/11/19 6:37 AM) Room air (11/11/19 4:41 AM) Room air (11/11/19 3:33 AM) Blood pressure sites Arm, left (11/11/19 6:37 AM) Arm, left (11/11/19 4:41 AM) Arm, left (11/11/19 3:33 AM) Temperature Route Oral (11/11/19 3:33 AM) Social History Social History Type Response Smoking Status 10 or more cigarette s (1/2 pack or more)/day in last 30 days entered on: 11/11/19 Sex
[2023-12-13] MEDS: oxyCODONE HCl ER 10 MG TAB.ER.12H PO ×2 (07:06→19:01)
[2023-12-13] MEDS: Lactated Ringers 1,000 ML 100 ML IVCONT ×3 (07:07→22:45)
--- NOTE | 2023-12-13 07:09 | PHA.MEDREC ---
Pharmacy Consult ? Medication Reconciliation Pharmacy has completed the medication reconciliation. Reviewed med rec done by nursing
--- NOTE | 2023-12-13 07:18 | MHC.SHP ---
Pre-Procedural Eval Section A - 24 Hr Update-Section A only Date of Service: 12/13/23 The patient is an INPATIENT: No Changes since office visit: No Cold of Flu in the past 2 weeks, No New Medical Problems, No Changes in Medication and No Patient answered all questions The patient has been examined within 24 hours of the surgical procedure. The History & Physical has been completed within 30 days and I have reviewed it.: Yes Section B - Complete if H&P > 30 days Chief Complaint: rt sebastián Allergies: Allergies Allergy/AdvReac Type Severity Reaction Status Date / Time codeine AdvReac Intermediate nausea and Verified 11/11/23 15:56 vomitting Plan I have reviewed the history and physical and performed a pertinent physical examination on my patient. No changes have occurred unless specified. Time Spent With Patient Time: Total time managing care of this patient today ____ minutes.
--- NOTE | 2023-12-13 10:44 | P.BOP_ITS ---
Brief Operative Note Date of Service: 12/13/23 Pre-op diagnosis: Right hip OA Post-op diagnosis: same Procedure: Right MARIO Implants: Rose Trident2 48 Rose Accolade 2 #5 127 deg with -4 32 ceramic Surgeon: Tio Levy MD Anesthesia: GETA and local Was an Senior Net Developer used for this Procedure?: Yes Senior Net Developer: Aminata Root Estimated blood loss (mL): 200 IV fluids (mL): 1,000 Pathology: other Condition: stable Disposition: PACU
[2023-12-13] MEDS: HYDROmorphone HCl 0.5 MG/0.5 ML SYRINGE 0.25 MG IVPUSH ×4 (11:15→13:02)
--- NOTE | 2023-12-13 13:21 | PC.NURSE ---
pt straight cat at 1310 for 600mls of yellow urine , Pt DTV at 1900
[2023-12-13] MEDS: oxyCODONE HCl Immed Release 5 MG TABLET 10 MG PO ×3 (14:42→22:44)
[2023-12-13] MEDS: ceFAZolin Sodium/Dextrose,Iso 2 GM/50 ML PIGGYBACK IV (15:01)
--- NOTE | 2023-12-13 15:32 | HO.PM.IMCN ---
History of Present Illness Data of Consult Service Date: 12/13/23 Requesting physician: Aminata Root Primary Care Provider: Juan Carpenter MD [facility] Reason for consult: medical management 62-year-old female with history of rheumatoid arthritis not on medications, hyperlipidemia admitted to Orthopedic surgery for management of osteoarthritis of the right hip s/p MARIO with consult placed hospitalist service for medical management. She is resting comfortably on exam. No complaints. She is a former smoker, former alcohol user. No drug use. Review of Systems Review of Systems: General: No fevers, malaise, unintentional weight loss HEENT: No blurred vision, diplopia. No sore throat, nasal congestion, rhinorrhea, sinus pain, ear pain Cardiovascular: No chest pain, palpitations, or leg edema Respiratory: No shortness of breath, wheezing, cough GI: No abdominal pain, nausea, vomiting, diarrhea, constipation, melena, hematochezia : No dysuria, hematuria, increased urinary frequency, decreased urinary output MSK: No myalgia, back pain Neuro: No headaches, weakness, paresthesias Skin: No rashes or lesions PMFSH Medical History Rheumatoid arthritis Arthritis Bowel obstruction Swelling of lower extremity Elevated cholesterol History of opiate therapy Vitamin D deficiency Pure hypercholesterolemia Primary osteoarthritis of right hip Depression Osteoporosis Knee locking Osteoarthritis of hip Family History Father Cancer Mother Bone cancer Osteoporosis Surgical History Hx of arthroscopy of right knee History of total left hip arthroplasty Hx of bilateral cataract extraction Hx of colonoscopy Hx of section H/O left wrist surgery Social History Household Members: Children Housing: House Are you a primary insurance healthcare representative to a significant other at home: No Do you presently have visiting nurse or other home services: No Alcohol intake: current Alcohol intake frequency: does not drink Patient Tobacco Use Status: Former Tobacco user Quit Date: 1999 Tobacco use type: Cigarette e-Cigarette/Vaping Use: Never Used Use of substances other than those prescribed or required for medical reasons: No Substance Use Type Other:: gummie Substance Use Frequency: Weekly Currently Displaying Signs/Symptoms of Drug Intoxication Withdrawal: No Have you been hit, kicked, punched, or otherwise hurt by someone within the past year? If so, by whom?: No Do you feel safe in your current relationship?: No Current Relationship Is there a partner from a previous relationship who is making you feel unsafe now?: No Are you made to feel afraid or neglected: No Are you DNR?: No Advance Directives: No Advance Directives Information Provided: No Advance Directives on File: No Do you have a plan to hurt others: No Plan Recently lost weight without trying: No Eating poorly because of decreased appetite: No Nutrition Risks: No Nutritional Risk Patient : No : No Poor oral hygiene: No service: No Current occupational status: disabled Current occupation: rt handed Cognitive needs: No Hearing needs: No Vision needs: No Meds Allergies Allergy/AdvReac Type Severity Reaction Status Date / Time codeine AdvReac Intermediate nausea and Verified 11/11/23 15:56 vomitting Active Medications: Current Medications Acetaminophen (Acetaminophen 325 Mg Tablet) 650 mg PO Q6H PRN PRN Reason: Pain, Mild (Pain Scale 1-3) Aspirin (Aspirin 325 Mg Tablet) 325 mg PO BID [facility] Celecoxib (Celecoxib 200 Mg Capsule) 200 mg PO BID [facility]1983 Docusate Sodium (Docusate Sodium 100 Mg Capsule) 100 mg PO BID KM Hydromorphone HCl (Hydromorphone Hcl 0.5 Mg/0.5 Ml Syringe) 0.25 mg IVPUSH Q4H PRN; Protocol PRN Reason: Pain, Severe (Pain Scale 7-10) Last Admin: 12/13/23 13:02 Dose: 0.25 mg Lactated Ringer's (Lr) 1,000 mls @ 100 mls/hr IVCONT .Q10H KM Stop: 12/14/23 10:53 Last Admin: 12/13/23 12:54 Dose: 100 mls/hr Cefazolin Sodium/Dextrose (Ancef) 2 gm in 50 mls @ 100 mls/hr IV POSTOP ONE Stop: 12/13/23 16:29 Last Admin: 12/13/23 15:01 Dose: 100 mls/hr Ondansetron HCl (Ondansetron Hcl 4 Mg/2 Ml Vial) 4 mg IVPUSH Q8H PRN PRN Reason: Nausea and Vomiting Oxycodone HCl (Oxycodone Hcl Immed Release 5 Mg Tablet) 10 mg PO Q4H PRN PRN Reason: Pain, Moderate(Pain Scale 4-6) Last Admin: 12/13/23 14:42 Dose: 10 mg Oxycodone HCl (Oxycodone Hcl Er 10 Mg Tab.Er.12h) 10 mg PO BID KM Sodium Chloride (0.9 % Sodium Chloride Flush 3 Ml Syringe) 3 ml IVFLUSH QSHIFT KM Last Admin: 12/13/23 14:38 Dose: Not Given Home Medications ?Medication ?Instructions ?Recorded ?Confirmed ?Last Taken ?Type acetaminophen 325 mg tablet 650 mg PO BID PRN Pain 12/02/23 12/08/23 12/13/23 History ornloono-ebl-znhq 4 mg-folic acid 1 tab PO DAILY 12/02/23 12/08/23 12/13/23 History 200 mcg-vit K 25 mcg-lutein tablet (Centrum Minis Women 50 Plus) Physical Exam Vital Signs and Narrative: Vital Signs: Last Vital Signs Temp 97.5 F 12/13/23 15:27 Pulse 68 12/13/23 15:27 Resp 18 12/13/23 15:27 BP 133/60 12/13/23 15:27 Pulse Ox 97 12/13/23 15:27 O2 Del Method Nasal Cannula 12/13/23 15:27 O2 Flow Rate 2 12/13/23 15:27 BMI result Body Mass Index 23.2 Constitutional - Awake and Alert, No apparent distress Eyes - PERRLA, EOMI Cardiovascular - S1S2, RRR, No edema Respiratory - Normal lung expansion, Normal respiratory effort, No respiratory distress, CTA bilaterally Gastrointestinal - NT / ND; +BS; No rebound or guarding Extremities - no calf tenderness bilaterally, no swelling Skin - Warm/Dry Neurological - Alert & oriented x3 Psychological - Appropriate affect Assessment and Plan (1) Osteoarthritis of right hip: Status: Acute Plan 62-year-old female with history of rheumatoid arthritis not on medications, hyperlipidemia admitted to Orthopedic surgery for management of osteoarthritis of the right hip s/p MARIO with consult placed hospitalist service for medical management. #OA R hip s/p MARIO POD 0 -plan per ortho surgery #RA -not on meds, stable Thank you for allowing me to participate in this consult. Signing off at this time. Please do not hesitate to call for further questions or for any acute medical conditions
[2023-12-13] MEDS: Celecoxib 200 MG CAPSULE PO (19:01)
[2023-12-13] MEDS: Docusate Sodium 100 MG CAPSULE PO (19:01)
[2023-12-13] MEDS: Acetaminophen 325 MG TABLET 650 MG PO (19:02)
--- NOTE | 2023-12-13 20:30 | P.DS_ITS ---
DS: Providers Provider Date of Service: 12/14/23 Date of admission: 12/13/23 06:55 Primary care physician: Juan Carpenter MD Consults: 12/13/23 12:43 Consult to Hospitalist Routine Comment: Consulting Provider: Hospitalist Reason For Exam: medical management DS: Diagnosis Discharge Diagnosis (1) Osteoarthritis of right hip: Status: Acute DS: Summary Hospital Course Hospital Course: The patient underwent a successful right total hip arthroplasty, they were transferred to PACU and then to the floor to recover. During their stay, their vitals were stable, afebrile at 98.5. Labs were unremarkable, H/H 10.6/31.3. POD 1 they were started on Aspirin 325mg po bid for DVT ppx, they also received Physical Therapy services twice a day. Prior to discharge, their dressing was clean dry and intact, and the plan was to be discharged home with VNA services. Time Attestation Discharge Coordination Time (in mins): 30 Quality: Safe Use of Opioids Does Pt have an Active Cancer Diagnosis on the Problem List?: No Quality: Stroke Does the patient have a stroke diagnosis?: No Physical Exam Vital Signs: Vital Signs: Last Vital Signs Temp 98 F 12/13/23 19:00 Pulse 62 12/13/23 19:00 Resp 16 12/13/23 19:00 BP 126/57 L 12/13/23 19:00 Pulse Ox 97 12/13/23 19:00 O2 Del Method Room Air 12/13/23 19:00 O2 Flow Rate 2 12/13/23 15:27 BMI result Body Mass Index 23.2 Const: General: cooperative, healthy appearing and no acute distress Resp: Effort & Inspection: normal respiratory effort and able to speak in complete sentences Cardio: Rate: regular rate Peripheral pulses: Peripheral pulses 2+ throughout GI: Palpation (GI): Soft to palpation Skin: Lesions: no lesions Rashes: no rashes Extrem: Other: rt hip dressing is c/d/i. Able to dorsi/plantar flex. Calf is supple and nontender. Sensation intact. Pedal pulse intact. DS: Data Data Completed and Pending Pending studies at discharge: Pending at discharge 12/13/23 10:37 Surgical [PTH] Routine Discharge Plan Discharge Anticipated Discharge Date/Time: 12/14/23 12:26 Patient Disposition: Home Health Service Discharge Diagnosis: s/p RTHA Referrals: Aminata Root PA-C [Physician Collections Analyst] - 12/29/23 12:30 pm Discharge Medications: New celecoxib 200 mg Capsule 200 mg PO BID 30 Days Qty: 60 0RF acetaminophen 325 mg Tablet 650 mg PO Q6H PRN (Reason: Pain, Mild (Pain Scale 1-3)) 30 Days Qty: 240 0RF aspirin 325 mg Tablet 325 mg PO BID 42 Days Qty: 84 0RF oxycodone 10 mg tablet 10 mg PO Q4H PRN (Reason: Pain, Moderate(Pain Scale 4-6)) 7 Days Qty: 42 0RF Rx Instructions: Partial Fill upon patient request. docusate sodium 100 mg Capsule 100 mg PO BID 30 Days Qty: 60 0RF Continued (DME) Raised toilet seat See Rx Instructions .ROUTE .MEDSUPPLY Qty: 1 0RF Rx Instructions: As directed (DME) SHOWER CHAIR See Rx Instructions .ROUTE .MEDSUPPLY Qty: 1 0RF Rx Instructions: As directed (DME) walker Misc See Rx Instructions .MEDSUPPLY Qty: 1 0RF Rx Instructions: Folding Front wheeled walker (DME) stackable bath steps See Rx Instructions .Route .MEDSUPPLY Qty: 1 0RF Rx Instructions: As directed (DME) Leg Hockey Player See Rx Instructions .Route .MEDSUPPLY Qty: 1 0RF Rx Instructions: As directed (DME) Grab Bar See Rx Instructions .ROUTE .MEDSUPPLY Qty: 1 0RF Rx Instructions: As directed Centrum Minis Women 50 Plus 4 mg iron-200 mcg-25 mcg Tablet 1 tab PO DAILY Discontinued acetaminophen 325 mg Tablet 650 mg PO BID PRN (Reason: Pain) Discharge Orders: Discharge Order (Routine); Ordered 12/14/23 Ordered By: Bette Pettit Diet: Advance to usual diet Activity on Discharge: Use cane or walker Stand Alone Forms: Patient Portal Discharge page Print Language: Vietnamese Care Plan Goals: restore fxn to right hip Health Concerns: None Plan of Treatment: Physical Therapy for total hip arthroplasty: posterior precautions, gait training, ROM, strength Limit stair climbing No showering, no tub bath-keep dressing clean, dry and intact No driving x6 weeks Continue Lovenox tabs once a day x 4 weeks Follow up with [facility] Orthopedics in 2 weeks Assessment: Stable for d/c
--- NOTE | 2023-12-13 20:31 | W.MHC.F2F ---
Service Date Service Date: 12/13/23 Encounter Date of encounter: 12/14/23 Reasons for Services Signs and symptoms assessed: s/p RTHA Pt. is considered homebound due to recent surgery. Unable to drive, poor balance, poor gait mechanics. Reason for physical therapy: home safety and mobility, therapeutic exercises, restore joint function, gait/transfer training, assess need for DME and ADL training Reason for occupational therapy: home safety and mobility, therapeutic exercises, restore joint function, gait/transfer training, assess need for DME and ADL training Homebound: Leaving the home is medically contraindicated at this time without the asist of a device and/or another person due th the listed conditions above and below. Reason homebound: unsteady gait / fall risk, leg weakness, pain with ambulation, pain with transfers, poor balance / fall risk and unable to drive Certification: Based on the above findings, I certify that this patient is confined to the home and needs intermittent usp care, physical therapy and/or speech therapy, or continues to need occupational therapy. The patient is under my care, and I have initiated the establishment of the plan of care. The patient will be followed by a physician who will periodically review the plan of care. Time Spent With Patient Time: Total time managing care of this patient today ____ minutes.
[2023-12-14] MEDS: HYDROmorphone HCl 0.5 MG/0.5 ML SYRINGE 0.25 MG IVPUSH (01:22)
[2023-12-14] MEDS: Melatonin 3 MG TABLET 6 MG PO (01:40)
[2023-12-14 03:00] VITALS: BP 125/60; PULSE 70; RESP 16; TEMP 36.6; O2SAT 96
[2023-12-14 07:00] VITALS: BP 135/61; PULSE 70; RESP 16; TEMP 36.9; O2SAT 97
[2023-12-14 07:31] LABS: Anion Gap 14 (12-20); Blood Urea Nitrogen 14 mg/dL (9-16); Calcium 8.5 mg/dL (8.4-10.2); Carbon Dioxide 23 mmol/L (22-29); Chloride 108 mmol/L (96-108); Creatinine Clr Calc Pharmacy 54.8; Estimated Glomerular Filt Rate > 60; Glucose Fasting 95 mg/dL (60-99); Sodium 141 mmol/L (135-145)
[2023-12-14] MEDS: oxyCODONE HCl Immed Release 5 MG TABLET 10 MG PO ×2 (07:51→11:55)
[2023-12-14] MEDS: Docusate Sodium 100 MG CAPSULE PO (07:51)
[2023-12-14] MEDS: oxyCODONE HCl ER 10 MG TAB.ER.12H PO (07:51)
[2023-12-14] MEDS: Celecoxib 200 MG CAPSULE PO (07:56)
--- NOTE | 2023-12-14 09:00 | HO.POSTANES ---
Post Anesthesia Evaluation Post Anesthesia Evaluation Date of Service: 12/13/23 Vital Signs: Vital Signs Temp Pulse Resp BP Pulse Ox O2 Del Method 12/14/23 07:00 98.5 F 70 16 135/61 97 Room Air 12/14/23 03:00 98 F 70 16 125/60 96 Room Air 12/13/23 23:00 99 F 70 16 112/56 L 97 Room Air Anesthesia: Monitored and Spinal Mental Status: Awake Pain Control: Satisfactory Nausea/Vomiting: None Hydration: Adequate Anesthesia-Related Issues: No Anes. Related Issues
[2023-12-14 09:08] VITALS: BP 135/61; PULSE 70; O2SAT 97
[2023-12-14] MEDS: Lactated Ringers 1,000 ML 100 ML IVCONT (09:09)
--- NOTE | 2023-12-14 09:17 | MHC.CM.PN ---
Addendum entered by Renetta Steve 12/14/23 14:19: Patient is discharged today to home with [facility]. She has arranged for her sister to provide transportation home. Original Note: IMM 12/14/23 S/P R MARIO She lives with other family members. She is independent baseline. A copy of her HCP has been requested. Preferences of VNAs obtained. [facility] is 1st choice. DP home with [facility]. Patient will transfer to out pt therapy in 2 weeks. She will arrange for a family member to provide transportation home.
[2023-12-14] MEDS: Aspirin 325 MG TABLET PO (09:43)
[2023-12-14 10:08] LABS: Basophils Percent Auto 0.3 % (0-2); Eosinophils Absolute Auto 0.1 X10*3/uL (0.0-0.4); Eosinophils Percent Auto 0.6 % (0-4); Hematocrit 31.3 % (37.0-47.0); Hemoglobin 10.6 g/dl (12.0-16.0); Imm Gran Abs Auto 0.04 X10*3/uL (0.00-0.03); Imm Gran Pct Auto 0.4 % (0.0-0.4); Lymphocytes Absolute Auto 0.7 X10*3/uL (1.2-4.9); Lymphocytes Percent Auto 7.9 % (20-40); Mean Corpuscular HGB Conc 33.9 g/dl (31.0-35.0); Mean Corpuscular Volume 91.5 fL (80.0-98.0); Mean Platelet Volume 10.6 fL (9.4-12.3); Monocytes Absolute Auto 0.6 X10*3/uL (0.1-1.2); Monocytes Percent Auto 6.3 % (2-11); Neutrophils Absolute Auto 7.9 x10*3/uL (2.0-8.3); Neutrophils Percent Auto 84.5 % (45-73); Platelet Count 146 X10*3/uL (160-400); Red Blood Count 3.42 X10*6/uL (4.20-5.50); Red Cell Distribution Width 13.4 % (11.0-16.0); White Blood Count 9.3 X10*3/uL (4.8-10.8)
[2023-12-14 10:12] LABS: MANUAL DIFF FLAG NO
[2023-12-14 11:47] VITALS: BP 135/61; PULSE 70; O2SAT 97
--- NOTE | 2023-12-22 07:16 | W.PM.OPN ---
Operative Note Operative Note Date of Service: 12/13/23 Narrative: Date of Service: 12/13/23 Pre-op diagnosis: Right hip OA Post-op diagnosis: same Procedure: Right MARIO Implants: [place] Trident2 48 [place] Accolade 2 #5 127 deg with -4 32 ceramic Surgeon: Tio Levy MD Anesthesia: GETA and local Was an Electric Welder Helper used for this Procedure?: Yes Electric Welder Helper: Aminata Root Estimated blood loss (mL): 200 IV fluids (mL): 1,000 Pathology: other Condition: stable Disposition: PACU Procedure in detail: Patient was brought into the operating room and placed in the right lateral decubitus position. All bony prominences were well padded and the limb was prepped and draped in standard sterile fashion. A time-out was called to identify proper site procedure proper surgeon IV antibiotics and 1 g of transaxemic acid were administered. I began by making a curvilinear incision over the posterolateral aspect of the greater trochanter. Dissection was taken down to the tensor fascia which was incised in line with the incision and a Charnley retractor was placed. Cautery was used to maintain hemostasis. The hip was internally rotated and the external rotators were identified. The vessels were cauterized and a full-thickness capsular/external rotator layer was developed starting just proximal to the piriformis. This layer was tagged and a dull Hohmann retractor was placed underneath the neck in the hip was dislocated. A neck cut was made 1 cm proximal to the lesser trochanter and the head and neck were removed and measured 44mm on the back table. The head was eburnated anddeformed. I then removed the labrum and cauterized the fovea. I started with a 42 reamer and medialized to the inner table. I sequentially reamed up to a size 48 and impacted a 48mm cup at 45 degrees of inclination and 25 degrees of version. I then placed a 10 deg posterior lipped liner and turned my attention to the femur. I identified the piriformis insertion and used this as a starting point for my marli cutter. The medius tendon was protected with a Hibs retractor. A Charnley awl was inserted in the canal and a curved curette used to remove the lateral bone. I irrigated copiously. I then sequentially broached in the patient's natural version to a size 5 and placed my trial implants. I used a #5/127/+-4 based on my pre-operative template. Using a trail head I took the hip through range of motion. I was satisfied with the stability and length. I removed all instrumentation and copiously irrigated. I placed my final femoral implant and again took the hip through range of motion and was satisfied with the stability and length. The final -4implant was impacted in place and the hip reduced. I then irrigated copiously and placed 1 g of local transaxemic acid. I performed a capsular closure with 2.0 fiberwire, Magdalena's fascia with 0 Vicryl, subcuticular with 2-0 Vicryl and the skin with everardo. Patient was placed into a sterile dressing. Patient was extubated brought to the recovery room in stable condition. There were no known complications.
== END 2023-12-14 14:20 | disposition home health service (06) | DRG 470 ==
LOC: HO.SSSA 06:57 → HO.S3 11:43
PROVIDERS: Orthopaedic Surgery; Admitting Provider Physician Assistant; PCP Internal Medicine; Visit Provider Physician Assistant
PROC: 0SR903A Replacement of Right Hip Joint with Ceramic Synthetic Substitute, Uncemented, Open Approach (ICD-10-PCS; CPT 27130; principal; 2023-12-13 09:30)
DX: M16.11 Unilateral primary osteoarthritis, right hip (principal); M06.9 Rheumatoid arthritis, unspecified; E78.5 Hyperlipidemia, unspecified; Z87.891 Personal history of nicotine dependence; Z79.899 Other long term (current) drug therapy
CPT/HCPCS: 36415; 72170; 80048; 85025; 86850; 86900; 86901; 87640; 87641; 88304; 88311; 97110; 97116; 97162; C1776; J0131; J0690; J1100; J1170; J1596; J1885; J1920; J2250; J2405; J2704; J2795; J3010; J7120

== ENCOUNTER → 2023-12-13 06:55 | Outpatient (BNV) | payer OTHER, SELFPAY | PROVIDERS: Admitting Provider Physician Assistant; PCP Internal Medicine; Visit Provider Orthopaedic Surgery | DX: M16.11 Unilateral primary osteoarthritis, right hip (principal) | CPT/HCPCS: 27130; 99238; G0180 ==

== ENCOUNTER → 2023-12-13 06:55 | Outpatient (BNV) | payer OTHER, SELFPAY | PROVIDERS: Admitting Provider Physician Assistant; PCP Internal Medicine; Visit Provider Physician Assistant | DX: M16.11 Unilateral primary osteoarthritis, right hip (principal) | CPT/HCPCS: 99222 ==

== ENCOUNTER 2023-12-29 11:45 | Outpatient (AMB) | payer OTHER, SELFPAY ==
--- NOTE | 2023-12-29 11:52 | A.OFFVIS_ITS ---
Intake Visit Reasons: PO-RT MARIO 12/13/23 NE Intake Note: Radha a 63 year old female who presents today for a post operative right MARIO on 12/13/23 NE. Patient reports that her pain increases with walking, her current pain level is 7 out of 10. She will start out patient therapy next . Allergies codeine Adverse Reaction (Intermediate, Verified 12/29/23 12:07) nausea and vomitting HPI HPI PO-RT MARIO 12/13/23 NE: Details: 63-year-old female who returns to the office today for post-op right MARIO, 12/13/[address] Levy. She states she has worsening pain that is aggravated with ambulation. She rates the pain as 7 on the scale of 0-10. She also experiences stiffness at night. She is scheduled for outpatient therapy next . She is taking oxycodone and Tylenol for her pain. She has no other concerns today. [facility] Medical History Rheumatoid arthritis Arthritis Bowel obstruction Swelling of lower extremity Elevated cholesterol History of opiate therapy Vitamin D deficiency Pure hypercholesterolemia Primary osteoarthritis of right hip Depression Osteoporosis Knee locking Osteoarthritis of hip Surgical History Hx of arthroscopy of right knee History of total left hip arthroplasty Hx of bilateral cataract extraction Hx of colonoscopy Hx of section H/O left wrist surgery Family History Father Cancer Mother Bone cancer Osteoporosis Social History Household Members: Children Housing: House Are you a primary care director rn to a significant other at home: No Do you presently have visiting nurse or other home services: No Alcohol intake: current Alcohol intake frequency: does not drink Patient Tobacco Use Status: Former Tobacco user Quit Date: 1999 Tobacco use type: Cigarette e-Cigarette/Vaping Use: Never Used service: No Current occupational status: disabled Current occupation: rt handed Cognitive needs: No Hearing needs: No Vision needs: No Review of Systems Const All systems reviewed & are unremarkable except as noted in HPI and below Physical Exam Extrem Other: Right hip: Incision clean, dry and intact. No erythema or drainage. No pain with ROM of hip. She has mild discomfort with hip flexion. Calf supple, nontender. NVI. Assessment & Plan Assessment & Plan (1) History of total right hip replacement: Code(s): Z96.641 - Presence of right artificial hip joint Category: Surgical Plan Commerce removed, steri strips applied. She will begin to transition to Outpatient PT to continue working on Gait training, ROM and quad strength. No driving for another 4 weeks. She will require ppx abx for dental procedures. She will f/u in 4 weeks, sooner if needed. Patient Instructions: Scribed for Aminata Root PA-C, by Kamran Rivas biomedical equipment tech, on 12/29/2023 at 12:30 PM EST.? I, Aminata Root PA-C, have personally reviewed and agree with the information entered by the scribe. Coding Level of Care Code Global (33744) Diagnoses History of total right hip replacement Z96.641
== END 2023-12-29 12:08 | disposition home or self-care (01) ==
PROVIDERS: PCP Internal Medicine; Visit Provider Physician Assistant
DX: Z96.641 Presence of right artificial hip joint (principal)
CPT/HCPCS: 99024

== ENCOUNTER → 2023-12-29 11:45 | Outpatient (BNVA) | payer OTHER, SELFPAY | PROVIDERS: PCP Internal Medicine; Visit Provider Physician Assistant | DX: Z96.641 Presence of right artificial hip joint (principal) | CPT/HCPCS: 99212 ==

== ENCOUNTER 2024-01-19 14:00 | Outpatient (RCR) | payer OTHER, SELFPAY ==
--- NOTE | 2024-01-11 17:43 | MHC.PT.EP ---
[facility] [place] [facility] [place] [facility] [place] Office [address] [place] [address] [phone] F: [phone] F: [phone] F: [phone] F: [phone] Physical Therapy Plan of Care Date of Evaluation: 01/11/24 Date of Surgery: 12/13/23 Diagnosis: R MARIO on 12/13/23 (RL) Assessment: pt is a 63 y/o female presenting to physical therapy w/ referring diagnosis of RT MARIO 12/13/23. Impairments include pain, decreased range of motion, decreased strength, impaired functional mobility, impaired postural awareness, and altered ambulation mechanics. pt is a good candidate for skilled PT due to age, potential remediation of impairments, typical disease/condition progression and prognosis, comorbidities, and motivation. pt would benefit from skilled PT intervention to provide a tailored strengthening and stretching exercise program, functional training, gait training, postural re-training, neuromuscular re-education, modalities as needed for pain, equipment safety demonstration. Frequency and Duration: The patient will be seen 2x/wk for 6 wks Short Term Goals: pt will be I w/ HEP to promote self-management of condition. pt will improve B hip flexion to at least 4+/5 to promote ease in bed mobility. pt will improve R hip external rotation to at least 15* to promote ease in car/tub transfers. Consulting Project Director Goals: pt will report a statistically significant improvement in self-reported outcome measure, LEFI, to promote return to PLOF. pt will ambulate 5x500' w/ LRAD to promote ease in community ambulation for doctor's appt/grocery stores. pt will ascend/descend 12 stairs reciprocal pattern to promote ease in accessing basement for laundry. Treatment Plan: Modalities to reduce pain, spasms and effusion. Manual therapy to restore motion and function. Therapeutic exercise to improve strength and flexibility. Neuromuscular re-education for posture and balance. Therapeutic activities to return to functional activities of daily living. Electronically signed by: Kisha Harrell PT, DPT Please sign and return to therapist. Thank you for your referral.
--- NOTE | 2024-01-27 07:49 | MHC.PT.DC ---
[facility] [place] Office [place] Office [place] Office [address] [place] [address] [facility] [phone] F: [phone] F: [phone] F: [phone] F: [phone] Physical Therapy Discharge Report Diagnosis: R MARIO on 12/13/23 (RL) Date of Surgery: 12/13/23 Date of Evaluation: 01/11/24 Date of Discharge: 01/27/24 Treatments to Date: 2 Cancellations to Date: 0 No Shows to Date: 0 Discharge Status: Physician Discontinued Tx Discharge Summary: The patient called to inform our office she is undergoing a revision of her MARIO. She is discharged due to presence of fracture in operative leg. Electronically signed by: Kisha Harrell PT, DPT Please sign and return to therapist. Thank you for your referral.
== END 2024-01-27 07:49 | disposition home or self-care (01) ==
LOC: HO.PT 14:00
PROVIDERS: PCP Internal Medicine; Visit Provider Physician Assistant
DX: Z96.641 Presence of right artificial hip joint (principal)
CPT/HCPCS: 97110; 97162

== ENCOUNTER 2024-01-23 11:50 | Outpatient (REF) | payer OTHER, SELFPAY ==
--- NOTE | ~2024-01-23 | XR_ITS ---
EXAMINATION: XR PELVIS CLINICAL INFORMATION: Unspecified hip pain. COMPARISON: X-ray 12/23/2023 TECHNIQUE: AP view of the pelvis. FINDINGS: Study assigned for dictation on 02/07/2024. Right hip total hip arthroplasty components are appropriately aligned, stable from previous. There is relative lucency and ill-definition of the medial cortex of the proximal femur in the subtrochanteric region, which appears new as compared to the prior study. Of note, radiograph obtained on 02/07/2024 demonstrates a revision of the right hip arthroplasty. Left total hip arthroplasty is stable in position and alignment. Chronic ossifications in the lateral joint space, unchanged from previous. No acute periprosthetic fracture. No suspicious vu-hardware lucencies. Osteopenia. XR/XR pelvis 1-2V IMPRESSION: Study assigned for dictation on 02/07/2024. Right total hip arthroplasty present. There is lucency and ill-definition of the medial cortex of the proximal femur in the subtrochanteric region, of uncertain etiology. This appears new as compared to previous. Clinically correlate. Findings discussed Magaly Robles RN at 11:00 AM on 02/07/2024. Stable appearance of the left total hip arthroplasty.
== END 2024-01-23 11:51 | disposition home or self-care (01) ==
LOC: HO.HOSX 11:50
PROVIDERS: Visit Provider Orthopaedic Surgery
DX: Z47.1 Aftercare following joint replacement surgery (principal); Z96.641 Presence of right artificial hip joint
CPT/HCPCS: 72170; 99212

== ENCOUNTER 2024-01-23 12:48 | Outpatient (AMB) | payer OTHER, SELFPAY ==
--- NOTE | 2024-01-23 12:52 | A.OFFVIS_ITS ---
Vital Signs 01/23/24 12:59 Height 5 ft 2 in Weight 125 lb BMI 22.9 Intake Visit Reasons: 6 wk PO RT MARIO 12/13/23 NE Intake Note: Radha is a 63 year old female who presents today for a post operative visit s/p RT MARIO 12/13/23 NE. Patient rpeorts that she is having continued right sided groin pain also pain in the right knee, this pain significantly increases with activity such as PT. She has had swelling in the lower right extremity that has decreased since surgery but is still significant. Allergies codeine Adverse Reaction (Intermediate, Verified 01/23/24 12:54) nausea and vomitting HPI HPI 6 wk PO RT MARIO 12/13/23 NE: Details: Radha is a 63 year old female who presents today for a post operative visit s/p RT MARIO 12/13/23 NE. Patient rpeorts that she is having continued right sided groin pain also pain in the right knee, this pain significantly increases with activity such as PT. She has had swelling in the lower right extremity that has decreased since surgery but is still significant. Radha was doing well after surgery until approximately 2-3 weeks postop when she started to have worsening pain. She denies any fall or trauma. Now she can walk gingerly with a walker but describes pain being worse than it was in the 1st 2-3 weeks postoperatively. [facility] Medical History Rheumatoid arthritis Arthritis Bowel obstruction Swelling of lower extremity Elevated cholesterol History of opiate therapy Vitamin D deficiency Pure hypercholesterolemia Primary osteoarthritis of right hip Depression Osteoporosis Knee locking Osteoarthritis of hip Surgical History History of total right hip replacement (12/13/23) Hx of arthroscopy of right knee History of total left hip arthroplasty Hx of bilateral cataract extraction Hx of colonoscopy Hx of section H/O left wrist surgery Family History Father Cancer Mother Bone cancer Osteoporosis Social History Household Members: Children Housing: House Are you a primary rn home care to a significant other at home: No Do you presently have visiting nurse or other home services: No Alcohol intake: current Alcohol intake frequency: does not drink Patient Tobacco Use Status: Former Tobacco user Tobacco use type: Cigarette e-Cigarette/Vaping Use: Never Used service: No Current occupational status: disabled Current occupation: rt handed Cognitive needs: No Hearing needs: No Vision needs: No Physical Exam Vital Signs: BMI result Body Mass Index 22.9 Const General: cooperative, healthy appearing, no acute distress, well developed and alert HEENT Head: Yes normal to inspection, Yes normocephalic and Yes atraumatic Mouth: moist mucous membranes Eyes General: appearance normal, both eyes and all related structures EOM: EOMs intact bilaterally Chest Other: no audible wheezing. Resp Other: No audible wheezing Effort & Inspection: normal respiratory effort Back/Spine/Pelvis Cervical Spine: normal cervical lordosis Skin General skin exam: no rashes or lesions noted Neuro General: no focal motor deficits Extrem Other: On exam she has minimal pain with passive hip range of motion but gait antalgia and Trendelenburg gait. Psych Appearance: grossly normal and well kempt Mental Status: mental status grossly normal Speech and movement: Normal speech and movement present Affect: normal affect Attitude: cooperative Results Reviewed Results Reviewed: I personally reviewed relevant radiographs. There is stem subsidence and fracture at the medial calcar Assessment & Plan Assessment & Plan (1) History of total right hip replacement: Onset Date: 12/13/23 Code(s): Z96.641 - Presence of right artificial hip joint Category: Surgical Plan: This is a 63-year-old woman who underwent a unremarkable right hip replacement approximately 6 weeks ago. She was doing well immediately afterward but there was a change in her reported pain and she has subsequently been feeling worse and worse and unable to ambulate comfortably. Imaging demonstrates a fracture of the medial calcar with stem subsidence. I reviewed these radiographs with her and I recommend revision right hip arthroplasty with a a long uncemented stem. I discussed the risks, benefits and alternatives including, but not limited to need for further surgery, infection, pain, fracture, medical complications associated with surgery including blood clots and cardiovascular complications among others. She expressed understanding and we will proceed forward accordingly. Orders: Orders XR pelvis 1-2V 01/23/24 M25.559 - Pain in unspecified hip Coding Level of Care Code Global (27018) Diagnoses History of total right hip replacement Z96.641
[2024-01-23 12:59] VITALS: BMI 22.9
== END 2024-01-23 13:29 | disposition home or self-care (01) ==
PROVIDERS: PCP Internal Medicine; Visit Provider Orthopaedic Surgery
DX: Z96.641 Presence of right artificial hip joint (principal)
CPT/HCPCS: 99024

== ENCOUNTER 2024-01-26 10:27 | Outpatient (AMB) | payer OTHER, SELFPAY ==
--- NOTE | 2024-01-26 10:20 | MHC.PC.OV ---
Vital Signs 01/26/24 10:21 Height 5 ft 2 in Weight 110 lb 0.2 oz BMI 20.1 BP 98/58 L Blood Pressure Location Lt brachial Position Sitting Pulse 94 Pulse Source Pulse Oximeter Pulse Oximetry (%) 98 Oxygen Delivery Method Room Air Intake Visit Reasons: Right MARIO Revision with Dr. Levy 02/08/24 Intake Note: Patient is here for a Pre-op for Right MARIO Revision scheduled with Dr. Levy on 02/08/2024. Water And [employer]er Systems Superintendent Required: No Allergies codeine Adverse Reaction (Intermediate, Verified 01/26/24 11:14) nausea and vomitting Medication List - Last Reconciled 01/26/24 by Juan Carpenter MD acetaminophen 650 mg (2 x 325 mg) PO Q6H PRN 30 days celecoxib 200 mg PO BID 30 days docusate sodium 100 mg PO BID 30 days [Grab Bar As directed] [Leg Package Line Operator As directed] xedaljlb-[id number]-ymsz-FA-vit K-lut 4 mg iron-200 mcg-25 mcg (Centrum Minis Women 50 Plus) 1 tab PO DAILY oxycodone 5 mg PO Q6H PRN 7 days [Raised toilet seat As directed] [SHOWER CHAIR As directed] [stackable bath steps As directed] walker Folding Front wheeled walker Tobacco use date assessed: 11/11/23 Fall risk assessment: No Falls in past year Last assessed Fall Risk: 01/26/24 Dental Screening Dental Screen Date: 11/11/23 HPI Right MARIO Revision with Dr. Levy 02/08/24 HPI Details Patient comes in today at the request of Dr. Tio Levy for a preoperative medical examination for clearance for surgery She is currently scheduled for a revision right hip arthoplasty under general anesthesia on 02/07/2024 She initially underwent a total right hip arthroplasty last month on 12/13/2023 but she started experiencing persistent right-sided groin pain and knee pain that is significantly worse with activity and with physical therapy around 2 to 3 weeks post-op She was then sent for repeat pelvic x-rays (done on 01/23/2024) which revealed a fracture of the medial calcar with stem subsidence and she was then advised to undergo a revision arthroplasty with a long uncemented stem States that other than her right hip and right knee pain, she feels okay She denies any headaches or dizziness Denies any chest pains, no SOB No nausea/vomiting, no abdominal pain No change in bowel habits noted PFSH Medical History Rheumatoid arthritis Arthritis Bowel obstruction Swelling of lower extremity Elevated cholesterol History of opiate therapy Vitamin D deficiency Pure hypercholesterolemia Primary osteoarthritis of right hip Depression Osteoporosis Knee locking Osteoarthritis of hip Surgical History History of total right hip replacement (12/13/23) Hx of arthroscopy of right knee History of total left hip arthroplasty Hx of bilateral cataract extraction Hx of colonoscopy Hx of section H/O left wrist surgery Family History Father Cancer Mother Bone cancer Osteoporosis Social History Household Members: Children Housing: House Are you a primary vision care associate to a significant other at home: No Do you presently have visiting nurse or other home services: No Alcohol intake: current Alcohol intake frequency: does not drink Patient Tobacco Use Status: Former Tobacco user Tobacco use type: Cigarette e-Cigarette/Vaping Use: Never Used service: No Current occupational status: disabled Current occupation: rt handed Cognitive needs: No Hearing needs: No Vision needs: No Questionnaire Thrive Questionnaire Date Thrive assessed: 12/14/23 AUDIT C Alcohol Use Questionnaire (AUDIT-C) 1. How often do you have a drink containing alcohol?: Never 3. How often do you have six or more drinks on one occasion?: Never Total Score: 0 Score Reviewed/Action Taken: Yes YANICK-7 AMB Questionnaire YANICK-7 Date YANICK - 7 assessed: 11/11/23 Source: Developed by Drs. Kobe Maldonado, Rose James, Du Garcia and colleagues, with an educational avis from [employer]. Review of Systems Const Denies chills, Reports fatigue, Denies fever(s) and Denies headache(s) ENT Denies dysphagia, Denies dizziness, Denies otalgia, Denies headache(s), Denies neck pain, Denies odynophagia and Denies sore throat Card Denies chest pain, Denies rapid heart rate, Denies irregular heart rhythm, Denies palpitations and Denies dyspnea Resp Denies cough, Denies dyspnea and Denies wheezing GI Denies abdominal pain, Denies constipation, Denies dysphagia, Denies diarrhea, Denies nausea, Denies odynophagia and Denies vomiting Denies nocturia, Denies dysuria and Denies urinary urgency Musc Reports arthralgias (increased over the right hip and right knee) and Denies neck pain Skin/Breast Denies rash Neuro Denies dizziness and Denies headache(s) Endo Reports fatigue and Denies palpitations Aller/Immun Denies wheezing Physical exam (Primary Care) Vital Signs: Last Vital Signs Pulse 94 01/26/24 10:21 BP 98/58 L 01/26/24 10:21 Pulse Ox 98 01/26/24 10:21 Oxygen Delivery Method Room Air 01/26/24 10:21 BMI result Body Mass Index 20.1 Tobacco/Smoking Status: Tobacco use Status Tobacco use date assessed 11/11/23 01/26/24 10:21 Patient Tobacco Use Status Former Tobacco user 01/26/24 10:21 Tobacco use type Cigarette 01/26/24 10:21 e-Cigarette/Vaping Use Never Used 01/26/24 10:21 Thrive Assessment: Date of Thrive Assessment Date Thrive assessed 12/14/23 01/26/24 10:21 Const General: no acute distress and alert HENMT Throat: Yes posterior oropharynx normal and Yes tonsils normal (no TP congestion) Neck Neck: Yes no lymphadenopathy and Yes supple Thyroid: Thyroid normal Resp Auscultation: clear to auscultation bilaterally, no rales and no wheezes Cardio Rate: regular rate Rhythm: regular rhythm Heart sounds: no murmurs GI Palpation (GI): Soft to palpation and nontender Auscultation: normal bowel sounds General: Yes no CVA tenderness Back/Spine/Pelvis Back: no CVA tenderness Skin Rashes: no rashes Extrem General: Yes no clubbing, cyanosis or edema Right lower extremity: hip/thigh Details: tenderness Location: of the hip and knee Details: tenderness; no swelling Results Reviewed Results Reviewed: Laboratory Tests 11/30/23 11/30/23 12/14/23 13:57 14:03 05:54 WBC Hgb Hct Plt Count Sodium 141 Potassium 4.0 Creatinine 0.83 Estimated GFR > 60 Fasting Glucose 95 AST 23 ALT 13 TSH 1.35 Ur Specific [place] 1.025 Urine Protein Negative Urine Glucose (UA) Negative Urine Blood Negative Urine Nitrite Negative Ur Leukocyte Esterase Negative 12/14/23 08:59 WBC 9.3 Hgb 10.6 L D Hct 31.3 L D Plt Count 146 L D Sodium Potassium Creatinine Estimated GFR Fasting Glucose AST ALT TSH Ur Specific [place] Urine Protein Urine Glucose (UA) Urine Blood Urine Nitrite Ur Leukocyte Esterase Assessment and Plan Assessment & Plan (1) Preoperative examination: Code(s): Z01.818 - Encounter for other preprocedural examination Plan: Patient currently presents with acceptable risks for planned intermediate cardiac risk procedure In-office EKG done a couple of months ago was normal - NSR with no acute ST-T wave changes (copy of EKG is attached to this report for review) Patient also had some labs done a couple of months ago that came out mostly normal - results are included above (2) Failure of right total hip arthroplasty: Code(s): T84.010A - Broken internal right hip prosthesis, initial encounter Qualifiers: Encounter type: sequela Qualified Code(s): T84.010S - Broken internal right hip prosthesis, sequela Plan: She initially underwent MARIO of the right hip last month on 12/13/2023 Due to increasing and persistent right hip pain that supposedly started 2 to 3 weeks post-op, a repeat pelvic x-rays was done on 01/23/2024 which revealed a fracture of the medial calcar with stem subsidence She was then advised to undergo a revision arthroplasty with a long uncemented stem under general anesthesia and this is now scheduled for 02/07/[address] Levy (3) Pure hypercholesterolemia: Code(s): E78.00 - Pure hypercholesterolemia, unspecified Plan: Reinforced low cholesterol diet (4) Asthma: Code(s): J45.909 - Unspecified asthma, uncomplicated Qualifiers: Asthma severity: mild Asthma persistence: intermittent Asthma complication type: uncomplicated Qualified Code(s): J45.20 - Mild intermittent asthma, uncomplicated Plan: Her asthma currently appears stable Patient used to take Montelukast 10 mg QD for her asthma and hardly had to use any rescue inhalers in the past (5) Anemia: Code(s): D64.9 - Anemia, unspecified Qualifiers: Anemia type: unspecified type Qualified Code(s): D64.9 - Anemia, unspecified Plan: Her H/H last checked on 12/14/2023 were low at 10.6/31.3 respectively She has no Hx of anemia so this is likely postsurgical, due to acute bleeding Will have her recheck her CBC NAM for follow up but patient is advised that I do not anticipate any issues and expect her H/H to come back at least much higher than they were last month Plan Patient currently does not appear to have any contraindications for planned revision right hip arthroplasty Her in-office EKG done a couple of months ago came out normal Her preop labs done a couple of months ago were also all mostly normal and the only concern at this time is her anemia on her CBC done last month (post-op) Will have her get her CBC rechecked NAM for follow up - patient is advised that she needs to get this done as soon as she can for us to be able to complete her evaluation Final medical clearance and eligibility for planned intermediate cardiac risk procedure will be determined once her CBC results are available for review Follow up as scheduled in May 2024 Orders: Orders Complete Blood Count Auto Diff Today D64.9 - Anemia, unspecified Coding Level of Care Code Est Pt Level 3 (93071) Diagnoses Preoperative examination Z01.818 Failure of right total hip arthroplasty, sequela T84.010S Encounter type: sequela Pure hypercholesterolemia E78.00 Mild intermittent asthma without complication J45.20 Asthma severity: mild Asthma persistence: intermittent Asthma complication type: uncomplicated Anemia, unspecified type D64.9 Anemia type: unspecified type
[2024-01-26 10:21] VITALS: BP 98/58; PULSE 94; O2SAT 98; BMI 20.1
== END 2024-01-26 11:24 | disposition home or self-care (01) ==
PROVIDERS: PCP Internal Medicine; Visit Provider Internal Medicine
DX: Z01.818 Encounter for other preprocedural examination (principal); T84.01 Broken internal joint prosthesis; E78.00 Pure hypercholesterolemia, unspecified; J45.20 Mild intermittent asthma, uncomplicated; D64.9 Anemia, unspecified
CPT/HCPCS: 99213

== ENCOUNTER 2024-01-27 15:37 | Outpatient (REF) | payer OTHER, SELFPAY ==
[2024-01-27 15:49] LABS: MANUAL DIFF FLAG NO
[2024-01-27 18:11] LABS: Basophils Absolute Auto 0.1 X10*3/uL (0.0-0.2); Basophils Percent Auto 0.7 % (0-2); Eosinophils Absolute Auto 0.8 X10*3/uL (0.0-0.4); Eosinophils Percent Auto 8.1 % (0-4); Hematocrit 41.4 % (37.0-47.0); Hemoglobin 13.8 g/dl (12.0-16.0); Imm Gran Abs Auto 0.03 X10*3/uL (0.00-0.03); Imm Gran Pct Auto 0.3 % (0.0-0.4); Lymphocytes Absolute Auto 1.8 X10*3/uL (1.2-4.9); Lymphocytes Percent Auto 18.5 % (20-40); Mean Corpuscular HGB Conc 33.3 g/dl (31.0-35.0); Mean Platelet Volume 10.4 fL (9.4-12.3); Monocytes Absolute Auto 0.7 X10*3/uL (0.1-1.2); Monocytes Percent Auto 6.8 % (2-11); Neutrophils Absolute Auto 6.3 x10*3/uL (2.0-8.3); Neutrophils Percent Auto 65.6 % (45-73); Platelet Count 257 X10*3/uL (160-400); Red Cell Distribution Width 13.4 % (11.0-16.0); White Blood Count 9.6 X10*3/uL (4.8-10.8)
== END 2024-01-27 15:38 | disposition home or self-care (01) ==
LOC: HO.LAB 15:37
PROVIDERS: PCP Internal Medicine; Visit Provider Internal Medicine
DX: D64.9 Anemia, unspecified (principal)
CPT/HCPCS: 36415; 85025

== ENCOUNTER → 2024-01-31 08:37 | Outpatient (BNVA) | payer OTHER, SELFPAY | PROVIDERS: PCP Internal Medicine | DX: Z01.818 Encounter for other preprocedural examination (principal) ==

== ENCOUNTER 2024-02-02 09:46 | Outpatient (REF) | payer OTHER, SELFPAY | END 2024-02-02 09:47 | disposition home or self-care (01) | LOC: HO.HOSX 09:46 | PROVIDERS: Visit Provider Physician Assistant | DX: Z01.818 Encounter for other preprocedural examination (principal); Z96.641 Presence of right artificial hip joint | CPT/HCPCS: 99212 ==

== ENCOUNTER 2024-02-02 10:27 | Outpatient (AMB) | payer OTHER, SELFPAY ==
--- NOTE | 2024-02-02 10:45 | A.OFFVIS_ITS ---
Intake Visit Reasons: Pre-Op: R MARIO Revision w/NE 02/08/24 Intake Note: Radha is a 63 year old female who presents today for a pre op appointment for her R MARIO Revision w/NE 02/08/24. Pain management agreement reviewed and signed Allergies codeine Adverse Reaction (Intermediate, Verified 02/02/24 10:48) nausea and vomitting HPI HPI Pre-Op: R MARIO Revision w/NE 02/08/24: Details: 63-year-old right hand dominant female who presents in the office today for her preoperative history and physical exam prior to a revision of the right total hip arthroplasty to be performed on 02/07/[address] Tio Levy.? ? Patient has an allergy history, as follows:? -Codeine; nausea and vomiting? ? Patient is currently taking, as follows:? -Acetaminophen 650 mg PO Q6H PRN? -Celecoxib 200 mg PO BID? -Ydtraakp-kdg-msnd-FA-vit K-lut 4 mg iron ? 200 mcg ? 25 mcg PO daily? -Inulin 2 grams PO daily? -Oxycodone 5 mg PO Q8H PRN? ? Patient has a medical history, as follows:? -Anemia? -Vitamin D deficiency? -Hypercholesterolemia? -Rheumatoid arthritis? -Bowel obstruction; 2010 at [facility]? -Edema of the (unspecified) lower extremity? -Elevated cholesterol? -Hx of opiate therapy; Use of Oxycontin and Oxycodone; was on suboxone in 2021? -Depression? -Osteoporosis? ? Patient has a surgical history, as follows:? -Hx of right total hip arthroplasty; 12/13/2023? -Hx of right knee arthroscopy; 03/2022 Dr. Levy? -Hx of left total hip arthroplasty; 06/2015? -Hx of bilateral cataract extraction? -Hx of colonoscopy? -Hx of section; 1998? -Hx of left wrist surgery? ? Patient has a social history, as follows:? -Former tobacco user; cigarettes PFSH Medical History Rheumatoid arthritis Arthritis Bowel obstruction Swelling of lower extremity Elevated cholesterol History of opiate therapy Vitamin D deficiency Pure hypercholesterolemia Primary osteoarthritis of right hip Depression Osteoporosis Knee locking Osteoarthritis of hip Surgical History History of total right hip replacement (12/13/23) Hx of arthroscopy of right knee History of total left hip arthroplasty Hx of bilateral cataract extraction Hx of colonoscopy Hx of section H/O left wrist surgery Family History Father Cancer Mother Bone cancer Osteoporosis Social History Household Members: Children Housing: House Are you a primary director critical care to a significant other at home: No Do you presently have visiting nurse or other home services: No Alcohol intake: current Alcohol intake frequency: does not drink Patient Tobacco Use Status: Former Tobacco user Tobacco use type: Cigarette e-Cigarette/Vaping Use: Never Used service: No Current occupational status: disabled Current occupation: rt handed Cognitive needs: No Hearing needs: No Vision needs: No Review of Systems Const All systems reviewed & are unremarkable except as noted in HPI and below Physical Exam Const General: cooperative, healthy appearing, comfortable, no acute distress, well developed, alert and awake Orientation/consciousness: patient oriented x3 HEENT Head: Yes normal to inspection, Yes normocephalic and Yes atraumatic Mouth: moist mucous membranes Eyes General: appearance normal, both eyes and all related structures EOM: EOMs intact bilaterally Neck Neck: Yes normal visual inspection and Yes no lymphadenopathy Chest Other: no audible wheezing. Resp Other: No audible wheezing Effort & Inspection: normal respiratory effort and able to speak in complete sentences Cardio Rate: regular rate Peripheral pulses: Peripheral pulses 2+ throughout GI Inspection: Yes normal to inspection Palpation (GI): Soft to palpation Back/Spine/Pelvis Cervical Spine: normal cervical lordosis Skin General skin exam: no rashes or lesions noted Neuro General: patient oriented x3 Extrem Other: Right hip: Skin is clean, dry, and intact. On exam she has minimal pain with passive hip range of motion but gait antalgia and Trendelenburg gait. Psych Appearance: grossly normal and well kempt Mental Status: mental status grossly normal Speech and movement: Normal speech and movement present Affect: normal affect Attitude: cooperative Assessment & Plan Assessment & Plan (1) History of total right hip replacement: Onset Date: 12/13/23 Code(s): Z96.641 - Presence of right artificial hip joint Category: Surgical Plan Ms. Martínez is a 63-year-old right hand dominant female who presents in the office today for her preoperative history and physical exam prior to a revision of the right total hip arthroplasty to be performed on 02/07/[address] Tio Levy.? ? Patient has an allergy history, as follows:? -Codeine; nausea and vomiting? ? Patient is currently taking, as follows:? -Acetaminophen 650 mg PO Q6H PRN? -Celecoxib 200 mg PO BID? -Gfvpylxx-edo-pbjw-FA-vit K-lut 4 mg iron ? 200 mcg ? 25 mcg PO daily? -Inulin 2 grams PO daily? -Oxycodone 5 mg PO Q8H PRN? ? Patient has a medical history, as follows:? -Anemia? -Vitamin D deficiency? -Hypercholesterolemia? -Rheumatoid arthritis? -Bowel obstruction; 2011 at [facility]? -Edema of the (unspecified) lower extremity? -Elevated cholesterol? -Hx of opiate therapy; Use of Oxycontin and Oxycodone; was on suboxone in 2021? -Depression? -Osteoporosis? ? Patient has a surgical history, as follows:? -Hx of right total hip arthroplasty; 12/13/2023? -Hx of right knee arthroscopy; 03/2022 Dr. Levy? -Hx of left total hip arthroplasty; 06/2015? -Hx of bilateral cataract extraction? -Hx of colonoscopy? -Hx of section; 1998? -Hx of left wrist surgery? ? Patient has a social history, as follows:? -Former tobacco user; cigarettes? ? I discussed in detail the procedure and what to expect pre and post operatively. We discussed the risks, benefits, alternatives to the surgery and the rehabilitation course. The risks include infection, bleeding, nerve injury, ongoing pain, swelling, and stiffness, perioperative risk of injury to bones and soft tissues, and blood clots.?? ? I have answered all questions and with their understanding they have consented to move forward with a?revision of the right total hip arthroplasty?to be performed on 02/07/2024?by Dr. Tio Levy.? ? Follow-up will be at the post operative appointment on 02/23/2024 at 3:00 pm, or sooner if needed.? Patient Instructions: Scribed by Silvana Flores medical office assistant instructor, for Bette Pettit PA-C on 02/02/2024 at 10:38 am, EST.? Coding Level of Care Code Global (37713) Diagnoses History of total right hip replacement Z96.641
== END 2024-02-02 11:20 | disposition home or self-care (01) ==
LOC: HO.HOS 10:27
PROVIDERS: PCP Internal Medicine; Visit Provider Physician Assistant
DX: Z96.641 Presence of right artificial hip joint (principal)
CPT/HCPCS: 99024

== ENCOUNTER 2024-02-07 09:34 | Inpatient (IN) | payer OTHER, SELFPAY ==
[2024-02-01 12:25] VITALS: BP 138/60; PULSE 77; RESP 18; O2SAT 98; BMI 21.8
--- NOTE | 2024-02-01 12:42 | HO.ANESPROP2 ---
Documented by User: Dot Prieto NP 02/01/24 12:47 HPI - Anesthesia Eval Consult details Narrative: 63yo F for Right Hip Arthroplasty Revision Total, 02/07/24 s/p right MARIO 12/2023 GETA-7 - no issues per pt No recent illness No CP/SOB. Activity limited to hip pain. RA. 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 (Acute 12/13/23) Preoperative examination (Acute) Osteoarthritis of right hip (Acute) S/P lateral meniscectomy of right knee (Acute) Tear of lateral meniscus of right knee (Acute) Arthritis of right knee (Acute) Vitamin D deficiency (Acute) Pure hypercholesterolemia (Acute) Primary osteoarthritis of right hip (Acute) Knee locking (Acute) Osteoarthritis of hip (Acute) Past Medical History Medical History Rheumatoid arthritis Arthritis Bowel obstruction Swelling of lower extremity Elevated cholesterol History of opiate therapy Vitamin D deficiency Pure hypercholesterolemia Primary osteoarthritis of right hip Depression Osteoporosis Knee locking Osteoarthritis of hip Family History Family History Father Cancer Mother Bone cancer Osteoporosis Family history of problems with anesthesia: No Surgical History Surgical History History of total right hip replacement (12/13/23) Hx of arthroscopy of right knee History of total left hip arthroplasty Hx of bilateral cataract extraction Hx of colonoscopy Hx of section H/O left wrist surgery History of Problems with Anesthesia: No Social History Social History Household Members: Children Housing: House Are you a primary child care center administrator to a significant other at home: No Do you presently have visiting nurse or other home services: No Alcohol intake: current Alcohol intake frequency: does not drink Patient Tobacco Use Status: Former Tobacco user Tobacco use type: Cigarette e-Cigarette/Vaping Use: Never Used service: No Current occupational status: disabled Current occupation: rt handed Cognitive needs: No Hearing needs: No Vision needs: No Meds Allergies Allergy/AdvReac Type Severity Reaction Status Date / Time codeine AdvReac Intermediate nausea and Verified 02/07/24 06:23 vomitting Home Medications ?Medication ?Instructions ?Recorded ?Confirmed ?Last Taken ?Type xsevuven-cfz-awdt 4 mg-folic acid 1 tab PO DAILY 12/02/23 02/01/24 12/13/23 History 200 mcg-vit K 25 mcg-lutein tablet (Centrum Minis Women 50 Plus) inulin 2 gram chewable tablet 2 g PO DAILY 02/01/24 02/01/24 Unknown History (Fiber Gummies) Exam Height,Weight and Vital Signs: Height 5 ft 2 in Weight 53.977 kg Last Vital Signs Pulse 77 02/01/24 12:25 Resp 18 02/01/24 12:25 BP 138/60 02/01/24 12:25 Pulse Ox 98 02/01/24 12:25 O2 Del Method Room Air 02/01/24 12:25 Pertinent Lab Results Pertinent Lab Results: Laboratory Tests 12/14/23 01/27/24 05:54 15:48 WBC 9.6 Hgb 13.8 D Hct 41.4 D Plt Count 257 D Sodium 141 Potassium 4.0 Chloride 108 Carbon Dioxide 23 BUN 14 Creatinine 0.83 Narrative Narrative: EKG 11/2023 NSR @ 66 Airway Mallampati Class: I TM Dist: >3cm Neck ROM: Full Denture: Upper Loose/Missing/Broken Teeth: Yes (Lower front teeth broken, none loose. Lower molars missing) Heart: RRR Lungs: CTAB Assessment and Plan Assessment Anesthesia Assessment: Anesthesia Plan Discussed and PAT Visit Final Anesthetic Review Family History of Problems with Anesthesia: No History of Problems with Anesthesia: No Documented by User: Cha Montenegro MD 02/07/24 07:30 [facility] Past Medical History Medical History Rheumatoid arthritis Arthritis Bowel obstruction Swelling of lower extremity Elevated cholesterol History of opiate therapy Vitamin D deficiency Pure hypercholesterolemia Primary osteoarthritis of right hip Depression Osteoporosis Knee locking Osteoarthritis of hip Family History Family History Father Cancer Mother Bone cancer Osteoporosis Surgical History Surgical History History of total right hip replacement (12/13/23) Hx of arthroscopy of right knee History of total left hip arthroplasty Hx of bilateral cataract extraction Hx of colonoscopy Hx of section H/O left wrist surgery Social History Social History Household Members: Children Housing: House Are you a primary child care center administrator to a significant other at home: No Do you presently have visiting nurse or other home services: No Alcohol intake: current Alcohol intake frequency: does not drink Patient Tobacco Use Status: Former Tobacco user Tobacco use type: Cigarette e-Cigarette/Vaping Use: Never Used service: No Current occupational status: disabled Current occupation: rt handed Cognitive needs: No Hearing needs: No Vision needs: No Meds Allergies Allergy/AdvReac Type Severity Reaction Status Date / Time codeine AdvReac Intermediate nausea and Verified 02/07/24 06:23 vomitting Home Medications ?Medication ?Instructions ?Recorded ?Confirmed ?Last Taken ?Type mqxzdoij-jzw-wtip 4 mg-folic acid 1 tab PO DAILY 12/02/23 02/01/24 12/13/23 History 200 mcg-vit K 25 mcg-lutein tablet (Centrum Minis Women 50 Plus) inulin 2 gram chewable tablet 2 g PO DAILY 02/01/24 02/01/24 Unknown History (Fiber Gummies) Assessment and Plan Final Anesthetic Review NPO: Yes ASA Class: III Final Preanesthetic Review: No Changes in Pt Med Stat, Meds/Allgs Chart Reviewed, Consent Obtained/Reviewed and Anes Risks/Benef Reviewed Patient Risk: Intermediate Procedure Risk: Intermediate Anesthetic Plan Anesthetic Plan: GA Disposition: Standard PACU
[2024-02-01 14:36] LABS: MRSA Nasal PCR NEGATIVE (Negative); SA Nasal PCR NEGATIVE (Negative)
[2024-02-07] VITALS (14 sets, daily range): BP systolic 133–160; BP diastolic 62–74; PULSE 63–97; RESP 12–20; TEMP 36.4–37.3; O2SAT 94–100; BMI 22.0
--- NOTE | ~2024-02-07 | XR_ITS ---
EXAMINATION: XR PELVIS CLINICAL INFORMATION: Revision right total hip prosthesis. COMPARISON: 01/23/2024. TECHNIQUE: AP view of the pelvis. FINDINGS: Prior right hip prosthesis has been removed. New Prosthetic components of the right total hip arthroplasty are appropriately aligned. No periprosthetic fracture. Gas from recent surgery is present in the surrounding soft tissues. XR/XR pelvis 1-2V IMPRESSION: Appropriate alignment of the new revised right total hip arthroplasty.
[2024-02-07] MEDS: Lactated Ringers 1,000 ML 100 ML IVCONT ×3 (06:29→21:38)
[2024-02-07] MEDS: oxyCODONE HCl ER 10 MG TAB.ER.12H PO ×2 (06:41→21:39)
--- NOTE | 2024-02-07 07:06 | MHC.SHP ---
Pre-Procedural Eval Section A - 24 Hr Update-Section A only Date of Service: 02/07/24 The patient is an INPATIENT: No Changes since office visit: No Cold of Flu in the past 2 weeks, No New Medical Problems, No Changes in Medication and No Patient answered all questions The patient has been examined within 24 hours of the surgical procedure. The History & Physical has been completed within 30 days and I have reviewed it.: Yes Section B - Complete if H&P > 30 days Chief Complaint: Pain in left hip Allergies: Allergies Allergy/AdvReac Type Severity Reaction Status Date / Time codeine AdvReac Intermediate nausea and Verified 02/07/24 06:23 vomitting Plan I have reviewed the history and physical and performed a pertinent physical examination on my patient. No changes have occurred unless specified. Time Spent With Patient Time: Total time managing care of this patient today ____ minutes.
--- NOTE | 2024-02-07 11:10 | PC.NURSE ---
Pt up from PACU, A&Ox3, c/o 03/17 right hip pain, Dressing CDI, +CMS to RLE. No c/o N/v, lungs clear, no resp distress, call muhammad next to patient. State she will be up for admission questions later today.
[2024-02-07] MEDS: HYDROmorphone HCl 0.5 MG/0.5 ML SYRINGE 0.25 MG IVPUSH ×2 (11:19→16:03)
--- NOTE | 2024-02-07 11:36 | PHA.MEDREC ---
Pharmacy Consult ? Medication Reconciliation Pharmacy has completed the medication reconciliation. Confirmed med list done by Josephine Higgins.
[2024-02-07 12:28] LABS: Hematocrit 30.9 % (37.0-47.0)
[2024-02-07 12:29] LABS: Hemoglobin 10.1 g/dl (12.0-16.0)
[2024-02-07] MEDS: ceFAZolin Sodium/Dextrose,Iso 2 GM/50 ML PIGGYBACK IV (13:24)
[2024-02-07] MEDS: Acetaminophen 1,000 MG/100 ML PIGGYBACK 400 MG IV ×2 (17:24→23:32)
[2024-02-07] MEDS: HYDROmorphone HCl 0.5 MG/0.5 ML SYRINGE IVPUSH (17:24)
--- NOTE | 2024-02-07 17:56 | PC.NURSE ---
0.25mg IV dilaudid administered per MAR at 1603 with some effectiveness. Patient crying with complaints of increased pain. PEMA Root notified. Pain medications adjusted by PA. New order of 0.5mg IV dilaudid administered at 1724 per OCT. PEMA Root approved to administer immediately. Patient asleep upon pain reassessment. Respirations even and unlabored with rate of 20 breaths per minute.
[2024-02-07] MEDS: Docusate Sodium 100 MG CAPSULE PO (21:39)
[2024-02-07] MEDS: Celecoxib 200 MG CAPSULE PO (21:39)
[2024-02-07] MEDS: oxyCODONE HCl Immed Release 5 MG TABLET 10 MG PO (21:51)
[2024-02-08] VITALS (9 sets, daily range): BP systolic 88–160; BP diastolic 48–74; PULSE 73–91; RESP 16–18; TEMP 36–37.1; O2SAT 97–99
[2024-02-08] MEDS: HYDROmorphone HCl 0.5 MG/0.5 ML SYRINGE IVPUSH ×2 (03:16→19:36)
[2024-02-08] MEDS: Acetaminophen 1,000 MG/100 ML PIGGYBACK 400 MG IV (05:13)
[2024-02-08 06:59] LABS: MANUAL DIFF FLAG NO
[2024-02-08] MEDS: Lactated Ringers 1,000 ML 100 ML IVCONT (07:13)
[2024-02-08] MEDS: oxyCODONE HCl Immed Release 5 MG TABLET 10 MG PO ×4 (07:26→23:31)
[2024-02-08 07:32] LABS: Basophils Percent Auto 0.4 % (0-2); Eosinophils Absolute Auto 0.1 X10*3/uL (0.0-0.4); Eosinophils Percent Auto 0.8 % (0-4); Hematocrit 23.4 % (37.0-47.0); Hemoglobin 7.7 g/dl (12.0-16.0); Imm Gran Abs Auto 0.04 X10*3/uL (0.00-0.03); Imm Gran Pct Auto 0.5 % (0.0-0.4); Lymphocytes Absolute Auto 1.1 X10*3/uL (1.2-4.9); Lymphocytes Percent Auto 13.4 % (20-40); Mean Corpuscular HGB Conc 32.9 g/dl (31.0-35.0); Mean Corpuscular Volume 91.1 fL (80.0-98.0); Mean Platelet Volume 9.9 fL (9.4-12.3); Monocytes Absolute Auto 0.7 X10*3/uL (0.1-1.2); Monocytes Percent Auto 7.9 % (2-11); Neutrophils Absolute Auto 6.4 x10*3/uL (2.0-8.3); Platelet Count 167 X10*3/uL (160-400); Red Blood Count 2.57 X10*6/uL (4.20-5.50); Red Cell Distribution Width 13.8 % (11.0-16.0); White Blood Count 8.4 X10*3/uL (4.8-10.8)
[2024-02-08 07:40] LABS: Anion Gap 10 (12-20); Blood Urea Nitrogen 12 mg/dL (9-16); Calcium 8.6 mg/dL (8.4-10.2); Carbon Dioxide 28 mmol/L (22-29); Chloride 107 mmol/L (96-108); Creatinine Clr Calc Pharmacy 60.7; Estimated Glomerular Filt Rate > 60; Glucose Fasting 101 mg/dL (60-99); Potassium 4.5 mmol/L (3.3-5.1); Sodium 140 mmol/L (135-145)
--- NOTE | 2024-02-08 08:06 | P.PNOP_ITS ---
Subjective Subjective Date of Service: 02/08/24 Interval history: POD 1 status post revision right hip arthroplasty No overnight events resting in bed. Physical Exam Vital Signs: Vital Signs: Last Vital Signs Temp 97.7 F 02/08/24 07:41 Pulse 73 02/08/24 07:41 Resp 16 02/08/24 07:41 BP 122/58 L 02/08/24 07:41 Pulse Ox 98 02/08/24 07:41 O2 Del Method Room Air 02/08/24 07:41 O2 Flow Rate 2.0 02/07/24 11:39 BMI result Body Mass Index 22.0 Const: General: cooperative, healthy appearing and no acute distress Resp: Effort & Inspection: normal respiratory effort and able to speak in complete sentences Cardio: Rate: regular rate Peripheral pulses: Peripheral pulses 2+ throughout GI: Palpation (GI): Soft to palpation Skin: General skin exam: no rashes or lesions noted Extrem: Other: incision clean dry and intact. [place] intact. No erythema or effusion. Calf supple nontender. Neurovascularly intact. Procedures Date of Service Date of Service: 02/08/24 Progress Note: A&P Assessment and plan (1) History of revision of total replacement of right hip joint: Status: Acute Assessment and Plan: * Continue pain mgmnt * Begin Aspirin for dvt ppx * begin PT/OT revision right total hip with posterior precautions * Transfuse 2 units packed red blood cells * Dispo planning-Pending PT eval, pain mgmnt Need for continued inpatient stay: Time Spent With Patient Time: Total time managing care of this patient today ____ minutes. Quality Stroke Does the patient have a stroke diagnosis?: No VTE Prior VTE?: No VTE Risk Level:: Surgical - very high VTE Device Contraindication: N/A - Device Ordered VTE Drug Contraindication: N/A - Med Ordered
[2024-02-08] MEDS: oxyCODONE HCl ER 10 MG TAB.ER.12H PO ×2 (08:35→19:35)
[2024-02-08] MEDS: Docusate Sodium 100 MG CAPSULE PO ×2 (08:35→19:35)
[2024-02-08] MEDS: Celecoxib 200 MG CAPSULE PO ×2 (08:35→19:36)
[2024-02-08] MEDS: Aspirin 325 MG TABLET PO ×2 (08:35→19:35)
--- NOTE | 2024-02-08 09:39 | MHC.CM.PN ---
PATIENT IS FULLY INDEPENDENT WITH ADLS. SHE HAS WALKER AND CANE IN THE HOME FROM PRIOR SURGERY. NO HCP ON FILE AND PATIENT TELLS CM THAT SHE HAS ONE ALREADY, AND IT NAMES HER SISTER, MARLENY. COPY REQUESTED FOR MEDICAL RECORD. DC PLAN IS HOME WITH SERVICES. IMM 02/07 IN CHART
--- NOTE | 2024-02-08 14:34 | HO.POSTANES ---
Post Anesthesia Evaluation Post Anesthesia Evaluation Date of Service: 02/08/24 Vital Signs: Vital Signs Temp Pulse Resp BP Pulse Ox O2 Del Method 02/08/24 11:17 96.9 F 80 16 103/53 L 02/08/24 11:02 96.8 F 83 16 88/48 L 02/08/24 08:36 73 122/58 L 98 02/08/24 07:41 97.7 F 73 16 122/58 L 98 Room Air 02/08/24 03:36 97.4 F 80 16 160/74 H 97 Room Air Anesthesia: General Endotracheal-GETA Mental Status: Awake Pain Control: Satisfactory Nausea/Vomiting: None Hydration: Adequate Anesthesia-Related Issues: No Anes. Related Issues
[2024-02-08] MEDS: 0.9 % Sodium Chloride Flush 3 ML SYRINGE IVFLUSH (19:38)
[2024-02-08] MEDS: Melatonin 3 MG TABLET 6 MG PO (21:48)
[2024-02-09 02:36] VITALS: BP 149/65; PULSE 78; RESP 18; TEMP 36.1; O2SAT 97
[2024-02-09] MEDS: HYDROmorphone HCl 0.5 MG/0.5 ML SYRINGE IVPUSH (02:45)
--- NOTE | 2024-02-09 03:28 | PC.NURSE ---
Pt seen on bed alert and oriented, right hip dressing CDI, hip precautions reiterated, was crying for pain on first encounter, prn Dilaudid IV given with good relief, pt requested for Melatonin, Hakeem Blair was notified, Melatonin 6 mg po given, slept after, pt had several trips to the BR to void with assist throughout the night.
[2024-02-09 05:56] LABS: MANUAL DIFF FLAG NO
[2024-02-09 06:04] LABS: Basophils Percent Auto 0.5 % (0-2); Eosinophils Absolute Auto 0.4 X10*3/uL (0.0-0.4); Eosinophils Percent Auto 4.7 % (0-4); Hematocrit 30.8 % (37.0-47.0); Hemoglobin 10.5 g/dl (12.0-16.0); Imm Gran Abs Auto 0.03 X10*3/uL (0.00-0.03); Imm Gran Pct Auto 0.4 % (0.0-0.4); Lymphocytes Absolute Auto 1.3 X10*3/uL (1.2-4.9); Lymphocytes Percent Auto 15.6 % (20-40); Mean Corpuscular HGB Conc 34.1 g/dl (31.0-35.0); Mean Platelet Volume 9.6 fL (9.4-12.3); Monocytes Absolute Auto 0.7 X10*3/uL (0.1-1.2); Neutrophils Absolute Auto 5.8 x10*3/uL (2.0-8.3); Neutrophils Percent Auto 70.8 % (45-73); Platelet Count 144 X10*3/uL (160-400); Red Cell Distribution Width 14.5 % (11.0-16.0); White Blood Count 8.3 X10*3/uL (4.8-10.8)
[2024-02-09 06:19] LABS: Anion Gap 11 (12-20); Blood Urea Nitrogen 20 mg/dL (9-16); Calcium 8.2 mg/dL (8.4-10.2); Carbon Dioxide 24 mmol/L (22-29); Chloride 108 mmol/L (96-108); Creatinine Clr Calc Pharmacy 59.9; Estimated Glomerular Filt Rate > 60; Glucose Fasting 95 mg/dL (60-99); Sodium 139 mmol/L (135-145)
[2024-02-09 07:21] VITALS: BP 171/84; PULSE 74; RESP 16; TEMP 36.4; O2SAT 98
[2024-02-09] MEDS: Aspirin 325 MG TABLET PO (08:13)
[2024-02-09] MEDS: oxyCODONE HCl ER 10 MG TAB.ER.12H PO (08:13)
[2024-02-09] MEDS: Celecoxib 200 MG CAPSULE PO (08:13)
[2024-02-09] MEDS: Docusate Sodium 100 MG CAPSULE PO (08:13)
[2024-02-09] MEDS: oxyCODONE HCl Immed Release 5 MG TABLET 10 MG PO (08:13)
[2024-02-09] MEDS: 0.9 % Sodium Chloride Flush 3 ML SYRINGE IVFLUSH (08:17)
--- NOTE | 2024-02-09 09:27 | W.MHC.F2F ---
Service Date Service Date: 02/09/24 Encounter Date of encounter: 02/09/24 Reasons for Services Signs and symptoms assessed: Poor balance Pain with ambulation Reason for long-term: postoperative assessment and/or care Reason for physical therapy: home safety and mobility, therapeutic exercises, restore joint function, gait/transfer training, ADL training and energy conservation Reason for occupational therapy: home safety and mobility, therapeutic exercises, restore joint function, gait/transfer training, ADL training and energy conservation Homebound: Leaving the home is medically contraindicated at this time without the asist of a device and/or another person due th the listed conditions above and below. Reason homebound: unsteady gait / fall risk, pain with ambulation, pain with transfers, poor balance / fall risk and unable to drive Certification: Based on the above findings, I certify that this patient is confined to the home and needs intermittent long-term care, physical therapy and/or speech therapy, or continues to need occupational therapy. The patient is under my care, and I have initiated the establishment of the plan of care. The patient will be followed by a physician who will periodically review the plan of care. Time Spent With Patient Time: Total time managing care of this patient today ____ minutes.
--- NOTE | 2024-02-09 09:43 | PM.DS ---
DS: Providers Provider Date of Service: 02/09/24 Date of admission: 02/07/24 09:34 Primary care physician: Juna Carpenter MD DS: Diagnosis Discharge Diagnosis (1) History of revision of total replacement of right hip joint: Status: Acute DS: Summary Hospital Course Hospital Course: The patient underwent a successful right total hip arthroplasty revision on 02/07/2024, was transferred to PACU and then to the floor to recover. During their stay, their vitals were stable, afebrile at 97.5 F . Labs were unremarkable, H/H 10.5/30.8. POD 1 she was started on aspirin 650 mg a day for DVT ppx, they also received Physical Therapy services twice a day. Physical therapy should include gait training, core and lumbar strength, glute strength. Posterior precautions intact. WBAT. Prior to discharge, her dressing was changed, incision clean dry and intact, new Aquacel dressing applied. The Aquacel dressing should remain intact and dry at all times. Any concerns with the dressing, please contact orthopedic office. No showering. The plan is to be discharged home with VNA services Time Attestation Discharge Coordination Time (in mins): 25 Quality: Safe Use of Opioids Does Pt have an Active Cancer Diagnosis on the Problem List?: No Quality: Stroke Does the patient have a stroke diagnosis?: No Physical Exam Vital Signs: Vital Signs: Last Vital Signs Temp 97.5 F 02/09/24 07:21 Pulse 74 02/09/24 07:21 Resp 16 02/09/24 07:21 BP 171/84 H 02/09/24 07:21 Pulse Ox 98 02/09/24 07:21 O2 Del Method Room Air 02/09/24 07:21 O2 Flow Rate 2.0 02/07/24 11:39 BMI result Body Mass Index 22.0 Extrem: Other: Patient alert, oriented, in no acute distress Incision site and dressing clean, dry, intact DS: Data Data Completed and Pending Completed studies during hospitalization [Text1]: Procedures Replacement of Right Hip Joint with Ceramic Synthetic Substitute, Uncemented, Open Approach (12/13/23) Labs on day of discharge: Laboratory Results - last 24 hr 02/08/24 02/09/24 09:13 05:36 WBC 8.3 RBC 3.50 L D Hgb 10.5 L D Hct 30.8 L D MCV 88.0 MCH 30.0 MCHC 34.1 RDW 14.5 Plt Count 144 L MPV 9.6 Immature Gran % (Auto) 0.4 Neut % (Auto) 70.8 Lymph % (Auto) 15.6 L [place] % (Auto) 8.0 Eos % (Auto) 4.7 H Baso % (Auto) 0.5 Lymph # (Auto) 1.3 [place] # (Auto) 0.7 Eos # (Auto) 0.4 Baso # (Auto) 0.0 Abs Immat Gran (auto) 0.03 Absolute Neuts (auto) 5.8 Absolute Nucleated RBC 0.000 Nucleated RBC % (auto) 0.0 Sodium 139 Potassium 4.0 Chloride 108 Carbon Dioxide 24 Anion Gap 11 L BUN 20 H Creatinine 0.75 Estim Creat Clear Calc 59.9 Estimated GFR > 60 Fasting Glucose 95 Calcium 8.2 L Blood Type O Positive Antibody Screen NEGATIVE Crossmatch See Detail Discharge Plan Discharge Anticipated Discharge Date/Time: 02/09/24 09:31 Patient Disposition: Home Health Service Discharge Diagnosis: Right MARIO revision Referrals: Anamaria GORDILLO [Outside] - 3-5 Days (Anamaria GORDILLO will call you to schedule your nursing, physical therapy and occupational therapy appointments. ) Bette Pettit PA-C [Physician Contract Recruiter] - 2 Weeks (02/23/2024 15:00 [facility] Bette Pettit PA-C) Discharge Medications: New celecoxib 200 mg Capsule 200 mg PO BID 30 Days Qty: 60 0RF acetaminophen 325 mg Tablet 650 mg PO Q6H PRN (Reason: Pain, Mild (Pain Scale 1-3), fever or headache) 30 Days Qty: 240 0RF aspirin 325 mg Tablet 325 mg PO BID 42 Days Qty: 84 0RF docusate sodium 100 mg Capsule 100 mg PO BID 14 Days Qty: 28 0RF oxycodone 5 mg Tablet 10 mg PO Q4H PRN (Reason: Pain, Moderate(Pain Scale 4-6)) 7 Days Qty: 42 0RF Rx Instructions: Partial Fill upon patient request. Continued (DME) Raised toilet seat See Rx Instructions .ROUTE .MEDSUPPLY Qty: 1 0RF Rx Instructions: As directed (DME) SHOWER CHAIR See Rx Instructions .ROUTE .MEDSUPPLY Qty: 1 0RF Rx Instructions: As directed (DME) walker Misc See Rx Instructions .MEDSUPPLY Qty: 1 0RF Rx Instructions: Folding Front wheeled walker (DME) stackable bath steps See Rx Instructions .Route .MEDSUPPLY Qty: 1 0RF Rx Instructions: As directed (DME) Leg Nursing Manager See Rx Instructions .Route .MEDSUPPLY Qty: 1 0RF Rx Instructions: As directed (DME) Grab Bar See Rx Instructions .ROUTE .MEDSUPPLY Qty: 1 0RF Rx Instructions: As directed Fiber Gummies 2 gram Tablet,Chewable 2 g PO DAILY Centrum Minis Women 50 Plus 4 mg iron-200 mcg-25 mcg Tablet 1 tab PO DAILY Discontinued celecoxib 200 mg capsule 200 mg PO BID 30 Days Qty: 60 0RF acetaminophen 325 mg tablet 650 mg PO Q6H PRN (Reason: Pain, Mild (Pain Scale 1-3)) 30 Days Qty: 240 0RF oxycodone 5 mg tablet 5 mg PO Q8H PRN (Reason: Pain, Moderate(Pain Scale 4-6)) 7 Days Qty: 21 0RF Rx Instructions: Partial Fill upon patient request. Discharge Orders: Discharge Order (Routine); Ordered 02/09/24 Ordered By: Hakeem Blair Diet: Regular diet Activity on Discharge: Use cane or walker Stand Alone Forms: Patient Portal Discharge page Print Language: Greek Care Plan Goals: Restore joint function Health Concerns: N/a Plan of Treatment: Physical therapy for total hip arthroplasty: WBAT, posterior precautions, gait training, range of motion, strength Limit stair climbing No showering, no tub bath-keep dressing clean dry and intact No driving for 6 weeks Continue aspirin twice a day for 6 weeks Follow-up with [facility] in 2 weeks Assessment: Pain management Anticoagulant therapy
--- NOTE | 2024-02-09 09:50 | MHC.CM.PN ---
Patient medically cleared for dc home w/ PT/OT/SN through [facility]. [facility] aware of dc. Patient's son/DIL will stay with her for one week, DIL is a DEPORTATION EXAMINER and will assist w/ ADL's PRN. Cousin will provide transport home at 11am. RN aware.
--- NOTE | 2024-03-02 07:00 | PM.OP ---
Brief Operative Note Date of Service: 02/07/24 Pre-op diagnosis: Right periprosthetic fracture, hip Post-op diagnosis: same Procedure: Revision right hip, femoral componenet only Implants: Rose Mod Res 17x 150/ 19x0 cone body/32 + 0 ceramic Surgeon: Tio Levy MD Anesthesia: GETA and local Was an Rough Planer Tender used for this Procedure?: Yes Rough Planer Tender: Bette Pettit Estimated blood loss (mL): 200 IV fluids (mL): 1,200 Pathology: none sent Condition: stable Disposition: PACU
--- NOTE | 2024-03-02 07:04 | P.OP_ITS ---
Operative Note Operative Note Date of Service: 02/07/24 Narrative: Date of Service: 02/07/24 Pre-op diagnosis: Right periprosthetic fracture, hip Post-op diagnosis: same Procedure: Revision right hip, femoral componenet only Implants: Rose Mod Res 17x 150/ 19x0 cone body/32 + 0 ceramic Surgeon: Tio Levy MD Anesthesia: GETA and local Was an Fisheries Director used for this Procedure?: Yes Fisheries Director: Bette Pettit Estimated blood loss (mL): 200 IV fluids (mL): 1,200 Pathology: none sent Condition: stable Disposition: PACU Patient was brought into the operating room and placed in the right lateral decubitus position. All bony prominences were well padded and the limb was pr epped and draped in standard sterile fashion. A time-out was called to identify proper site procedure proper surgeon IV antibiotics and 1 g of tranexamic acid were administered. I began by making a curvilinear incision over the posterolateral aspect of the greater trochanter. Dissection was taken down through the prior incision and to the tensor fascia which was incised in line with the incision and a Charnley retractor was placed. All prior suture materials were removed. Cautery was used to maintain hemostasis. The hip was internally rotated and the capsule was incised through the prior capsulotomy and again all the opld suture materials were removed. A dull Hohmann retractor was placed underneath the neck in the hip was dislocated. The head was removed and I used cautrery to remove the soft tissues around the stem and the stem was easily removed without bone loss. I then irrigated copiously. THe cup was examined and was stable and there was no evidence of infection. There was a fracture at the calcar. I then sequentially reamed up to a 17 and placed a 17 fullly porous coated stem 155mm stem using the tip of the greater trochanter for reference. I then reamed for a cone bopdy and placed a provisional 19+0 and trialed with +0 32 head. I was satsifed with the stability and length. Itherefore removed the tiral and placed a 19+0 Cone and affixed this to the stem with the locking mechanism. I then retrialed with a + 0 head and was again very satisfied with the stability and range. My final ceramic 32 +0 head was inserted and the hip reduced. I then irrigated copiously and placed 1 g of local tranexamic acid. I performed a capsular closure with 2.0 fiberwire, Magdalena's fascia with 0 Vicryl, subcuticular with 2-0 Vicryl and the skin with everardo. Patient was placed into a sterile dressing. Patient was extubated brought to the recovery room in stable condition. There were no known complications.
== END 2024-02-09 10:37 | disposition home health service (06) | DRG 468 ==
LOC: HO.SSSA 09:40 → HO.S3 10:35
PROVIDERS: Nurse Practitioner; Orthopaedic Surgery; Admitting Provider Physician Assistant; PCP Internal Medicine; Visit Provider Physician Assistant
PROC: 30233N1 Transfusion of Nonautologous Red Blood Cells into Peripheral Vein, Percutaneous Approach (ICD-10-PCS; principal; 2024-02-07 07:30)
DX: T84.010A Broken internal right hip prosthesis, initial encounter (principal); Y79.2 Prosthetic and other implants, materials and accessory orthopedic devices associated with adverse incidents; Z87.891 Personal history of nicotine dependence; Z79.899 Other long term (current) drug therapy
CPT/HCPCS: 36415; 72170; 80048; 85014; 85018; 85025; 86850; 86900; 86901; 86923; 87640; 87641; 97116; 97162; 97166; 97530; C1776; J0131; J0690; J1100; J1170; J2250; J2405; J2704; J2795; J3010; J7120; P9016

== ENCOUNTER → 2024-02-07 09:34 | Outpatient (BNV) | payer OTHER, SELFPAY | PROVIDERS: Admitting Provider Physician Assistant; PCP Internal Medicine; Visit Provider Physician Assistant | DX: Z47.1 Aftercare following joint replacement surgery (principal); Z96.641 Presence of right artificial hip joint | CPT/HCPCS: 27138; 99024; G0180 ==

== ENCOUNTER 2024-02-12 12:10 | Emergency (ER) | payer OTHER, SELFPAY ==
--- NOTE | 2024-02-12 | ECG_ITS ---
Test Reason : WEAKNESS Blood Pressure : / mmHG Vent. Rate : 085 BPM Atrial Rate : 085 BPM P-R Int : 122 ms QRS Dur : 072 ms QT Int : 392 ms P-R-T Axes : 068 067 065 degrees QTc Int : 466 ms Normal sinus rhythm Normal ECG No previous ECGs available Referred By: Generic ED Physician Electronically Signed By:Yovanny Puente
[2024-02-12 12:13] VITALS: BP 130/90; PULSE 109; O2SAT 94
[2024-02-12 12:19] VITALS: BP 165/91; PULSE 89; RESP 16; TEMP 37.1; O2SAT 99; BMI 20.8
--- NOTE | 2024-02-12 12:36 | PC.NURSE ---
biba from home s/p right hip revision on 02/06 (discharged 02/08) - c/o dizziness/n/v/weakness x tuesday. recent blood transfusion (02/07). pt verbalizes same sx. pt presents as a&ox4. vss and up to date aside from being slightly hypertensive. 20gIV placed in the left forearm - labs obtained/sent to lab. ekg performed by tech. pt seen by ED provider/aware of plan moving forward. pt seems to be in no apparent distress. no sob/wob noted. respirations even/unlabored. plan of care ongoing. call muhammad placed within reach.
[2024-02-12 12:37] LABS: MANUAL DIFF FLAG NO
--- NOTE | 2024-02-12 12:39 | ED_ITS ---
HPI - General Adult General Chief complaint: Dizziness Stated complaint: NAUSEA VOMITING DIZZY Time Seen by Provider: 02/12/24 12:30 Source: patient and EMS Mode of arrival: EMS Limitations: no limitations History of Present Illness HPI narrative: This is a 63 years old the presented to emergency department complaining of generalized weakness malaise. She is status post revision on the right total hip discharged on February 08. Denies any fever chills. Onset (ago): day(s) (1) Radiation: non-radiation Severity: mild Quality: burning Pain Consistency: constant Relieving factors: none Associated symptoms: denies other symptoms Related Data Home Medications ?Medication ?Instructions ?Recorded ?Confirmed [id number] 4 mg-folic acid 1 tab PO DAILY 12/02/23 02/01/24 200 mcg-vit K 25 mcg-lutein tablet (Centrum Minis Women 50 Plus) inulin 2 gram chewable tablet 2 g PO DAILY 02/01/24 02/01/24 (Fiber Gummies) Previous Rx's ?Medication ?Instructions ?Recorded Raised toilet seat #1 10/10/23 SHOWER CHAIR #1 10/10/23 walker #1 11/10/23 Grab Bar #1 12/04/23 Leg Banquet Captain #1 12/04/23 stackable bath steps #1 12/04/23 acetaminophen 325 mg tablet 650 mg (2 x 325 mg) PO Q6H PRN 02/09/24 Pain, Mild (Pain Scale 1-3), fever or headache 30 days #240 tabs aspirin 325 mg tablet 325 mg PO BID 42 days #84 tabs 02/09/24 celecoxib 200 mg capsule 200 mg PO BID 30 days #60 caps 02/09/24 docusate sodium 100 mg capsule 100 mg PO BID 14 days #28 caps 02/09/24 oxycodone 5 mg tablet 10 mg (2 x 5 mg) PO Q4H PRN Pain, 02/09/24 Moderate(Pain Scale 4-6) 7 days #42 tabs Allergies Allergy/AdvReac Type Severity Reaction Status Date / Time codeine AdvReac Intermediate nausea and Verified 02/12/24 12:20 vomitting Review of Systems 2 Respiratory: Respiratory: Reports no additional respiratory complaints Gastrointestinal: Gastrointestinal: Reports nausea and Reports vomiting PMFSH Past Medical History Attestation statement: The following information was validated with the patient. Source: unable to obtain Medical History Rheumatoid arthritis Arthritis Bowel obstruction Swelling of lower extremity Elevated cholesterol History of opiate therapy Vitamin D deficiency Pure hypercholesterolemia Primary osteoarthritis of right hip Depression Osteoporosis Knee locking Osteoarthritis of hip Surgical History History of total right hip replacement (12/13/23) Hx of arthroscopy of right knee History of total left hip arthroplasty Hx of bilateral cataract extraction Hx of colonoscopy Hx of section H/O left wrist surgery Family History Family History Father Cancer Mother Bone cancer Osteoporosis Social History Social History Household Members: Children Housing: House Are you a primary chiropractic care to a significant other at home: No Do you presently have visiting nurse or other home services: No Alcohol intake: current Alcohol intake frequency: does not drink Patient Tobacco Use Status: Former Tobacco user Tobacco use type: Cigarette e-Cigarette/Vaping Use: Never Used Second Hand Smoke Exposure: No Advance Directives: No Advance Directives Information Provided: No Do you have a plan to hurt others: No Plan service: No Current occupational status: disabled Current occupation: rt handed Cognitive needs: No Hearing needs: No Vision needs: No Physical Exam ED Vital Signs: Vital Signs - 24 hr 02/12/24 12:19 02/12/24 15:21 Temperature 98.8 F 98.8 F Pulse Rate 89 82 Respiratory Rate 16 11 L Blood Pressure 165/91 H 173/78 H Pulse Oximetry 99 100 Oxygen Delivery Method Room Air Room Air BMI result Body Mass Index 20.8 Patient looks well she has not toxic-appearing she in lying in the stretcher in not acute distress Const General: cooperative Nutritional Appearance: well nourished Orientation/consciousness: patient oriented x3 Limitations: no limitations HENMT Head: Yes normal to inspection Ears: hearing grossly normal bilaterally General nose exam: Normal external nose present Mouth: Normal oral and palatal mucosa present Eyes General: appearance normal, both eyes and all related structures Sclerae: sclerae normal Neck Neck: Yes normal visual inspection Chest Chest palpation & inspection: normal inspection of the chest Resp Effort & Inspection: normal respiratory effort Auscultation: clear to auscultation bilaterally Cardio Jugular venous distension: no JVD Rate: regular rate Rhythm: regular rhythm GI Inspection: Yes normal to inspection Palpation (GI): Soft to palpation, not firm and nontender Auscultation: normal bowel sounds General: Yes no CVA tenderness Back/Spine/Pelvis Back: no CVA tenderness Skin General skin exam: no rashes or lesions noted, elasticity normal and turgor normal Lesions: no lesions Rashes: no rashes Neuro General: patient oriented x3 Course Reevaluation(s) Reevaluation #1: Feels better CBC shows a normal H&H will discharge home Time: 15:12 Medications Administered Discontinued Medications Generic Name Dose Route Start Last Admin Trade Name Freq PRN Reason Stop Dose Admin Sodium Chloride 1,000 mls @ 999 mls/hr 02/12/24 12:45 02/12/24 13:46 Ns IVCONT 02/12/24 13:45 Infused .Q1H1M KM Infusion Medical Decision Making Medical Decision Making [facility] Narrative: Patient presented with generalized weakness malaise will obtain labs administer IV fluid reassess Differential Diagnosis Differential Diagnoses: The differential diagnosis associated with the presentation includes Differential diagnosis anemia/renal failure/electrolytes abnormality Admission/Observation Consideration of admission/observation: Escalation of care including admission/observation considered Lab Data 02/12/24 12:33 02/12/24 12:33 Labs: Lab Results 02/12/24 Range/Units 12:33 WBC 11.1 H (4.8-10.8) X10*3/uL RBC 4.77 D (4.20-5.50) X10*6/uL Hgb 14.1 D (12.0-16.0) g/dl Hct 40.6 D (37.0-47.0) % MCV 85.1 (80.0-98.0) fL MCH 29.6 (27.0-33.0) pg MCHC 34.7 (31.0-35.0) g/dl RDW 13.4 (11.0-16.0) % Plt Count 327 D (160-400) X10*3/uL MPV 9.5 (9.4-12.3) fL Immature Gran % (Auto) 0.3 (0.0-0.4) % Neut % (Auto) 80.7 H (45-73) % Lymph % (Auto) 11.0 L (20-40) % [place] % (Auto) 6.9 (2-11) % Eos % (Auto) 0.7 (0-4) % Baso % (Auto) 0.4 (0-2) % Lymph # (Auto) 1.2 (1.2-4.9) X10*3/uL [place] # (Auto) 0.8 (0.1-1.2) X10*3/uL Eos # (Auto) 0.1 (0.0-0.4) X10*3/uL Baso # (Auto) 0.0 (0.0-0.2) X10*3/uL Abs Immat Gran (auto) 0.03 (0.00-0.03) X10*3/uL Absolute Neuts (auto) 8.9 H (2.0-8.3) x10*3/uL Absolute Nucleated RBC 0.000 (0.0-0.012) X10*3/uL Nucleated RBC % (auto) 0.0 (0.0-0.2) /100WBC Sodium 133 L (135-145) mmol/L Potassium 4.1 (3.3-5.1) mmol/L Chloride 98 (96-108) mmol/L Carbon Dioxide 22 (22-29) mmol/L Anion Gap 17 (12-20) BUN 15 (9-16) mg/dL Creatinine 0.76 (0.5-1.4) mg/dL Estim Creat Clear Calc 59.1 Estimated GFR > 60 Random Glucose 115 (60-115) mg/dL Calcium 9.8 D (8.4-10.2) mg/dL Total Bilirubin 0.8 (0.0-1.0) mg/dL AST 34 H (5-31) U/L ALT 18 (0-31) U/L Alkaline Phosphatase 99 (39-117) U/L Total Protein 8.2 H (6.5-8.0) g/dL Albumin 4.2 (3.5-5.0) g/dL Discharge Plan Discharge Clinical Impression: Dehydration, Nausea Patient Disposition: Home, Self-Care Instructions: Dehydration (ED) Additional Instructions: Follow-up with your primary care physician return to the emergency room if worse Prescriptions: No Action (DME) Raised toilet seat See Rx Instructions .ROUTE .MEDSUPPLY Qty: 1 0RF Rx Instructions: As directed (DME) SHOWER CHAIR See Rx Instructions .ROUTE .MEDSUPPLY Qty: 1 0RF Rx Instructions: As directed (DME) walker Misc See Rx Instructions .MEDSUPPLY Qty: 1 0RF Rx Instructions: Folding Front wheeled walker (DME) stackable bath steps See Rx Instructions .Route .MEDSUPPLY Qty: 1 0RF Rx Instructions: As directed (DME) Leg Banquet Captain See Rx Instructions .Route .MEDSUPPLY Qty: 1 0RF Rx Instructions: As directed (DME) Grab Bar See Rx Instructions .ROUTE .MEDSUPPLY Qty: 1 0RF Rx Instructions: As directed Fiber Gummies 2 gram Tablet,Chewable 2 g PO DAILY celecoxib 200 mg Capsule 200 mg PO BID 30 Days Qty: 60 0RF acetaminophen 325 mg Tablet 650 mg PO Q6H PRN (Reason: Pain, Mild (Pain Scale 1-3), fever or headache) 30 Days Qty: 240 0RF aspirin 325 mg Tablet 325 mg PO BID 42 Days Qty: 84 0RF docusate sodium 100 mg Capsule 100 mg PO BID 14 Days Qty: 28 0RF oxycodone 5 mg Tablet 10 mg PO Q4H PRN (Reason: Pain, Moderate(Pain Scale 4-6)) 7 Days Qty: 42 0RF Rx Instructions: Partial Fill upon patient request. Centrum Minis Women 50 Plus 4 mg iron-200 mcg-25 mcg Tablet 1 tab PO DAILY Referrals: Juan Carpenter MD [Primary Care Provider] - 2 days Print Language: Vietnamese
[2024-02-12] MEDS: 0.9 % Sodium Chloride 1,000 ML 999 ML IVCONT (12:45)
--- NOTE | 2024-02-12 12:46 | PC.NURSE ---
IVF administered per provider order.
[2024-02-12 12:51] LABS: Alanine Aminotransferase 18 U/L (0-31); Albumin Level 4.2 g/dL (3.5-5.0); Alkaline Phosphatase 99 U/L (39-117); Anion Gap 17 (12-20); Aspartate Amino Transferase 34 U/L (5-31); Bilirubin Total 0.8 mg/dL (0.0-1.0); Blood Urea Nitrogen 15 mg/dL (9-16); Calcium 9.8 mg/dL (8.4-10.2); Carbon Dioxide 22 mmol/L (22-29); Chloride 98 mmol/L (96-108); Creatinine Clr Calc Pharmacy 59.1; Estimated Glomerular Filt Rate > 60; Glucose Random 115 mg/dL (60-115); Potassium 4.1 mmol/L (3.3-5.1); Sodium 133 mmol/L (135-145); Total Protein 8.2 g/dL (6.5-8.0)
[2024-02-12 13:02] LABS: Basophils Percent Auto 0.4 % (0-2); Eosinophils Absolute Auto 0.1 X10*3/uL (0.0-0.4); Eosinophils Percent Auto 0.7 % (0-4); Hematocrit 40.6 % (37.0-47.0); Hemoglobin 14.1 g/dl (12.0-16.0); Imm Gran Abs Auto 0.03 X10*3/uL (0.00-0.03); Imm Gran Pct Auto 0.3 % (0.0-0.4); Lymphocytes Absolute Auto 1.2 X10*3/uL (1.2-4.9); Mean Corpuscular HGB Conc 34.7 g/dl (31.0-35.0); Mean Corpuscular Hemoglobin 29.6 pg (27.0-33.0); Mean Corpuscular Volume 85.1 fL (80.0-98.0); Mean Platelet Volume 9.5 fL (9.4-12.3); Monocytes Absolute Auto 0.8 X10*3/uL (0.1-1.2); Monocytes Percent Auto 6.9 % (2-11); Neutrophils Absolute Auto 8.9 x10*3/uL (2.0-8.3); Neutrophils Percent Auto 80.7 % (45-73); Platelet Count 327 X10*3/uL (160-400); Red Blood Count 4.77 X10*6/uL (4.20-5.50); Red Cell Distribution Width 13.4 % (11.0-16.0); White Blood Count 11.1 X10*3/uL (4.8-10.8)
[2024-02-12 15:21] VITALS: BP 173/78; PULSE 82; RESP 11; TEMP 37.1; O2SAT 100
[2024-02-12 16:54] VITALS: BP 173/78; PULSE 82; RESP 11; TEMP 37.1; O2SAT 100
== END 2024-02-12 16:54 | disposition home or self-care (01) ==
PROVIDERS: Emergency Provider Emergency Medicine; PCP Internal Medicine
DX: E86.0 Dehydration (principal); R53.1 Weakness; R11.0 Nausea; M06.9 Rheumatoid arthritis, unspecified; Z96.641 Presence of right artificial hip joint; Z79.899 Other long term (current) drug therapy
CPT/HCPCS: 36415; 80053; 85025; 93005; 96360; 99284

== ENCOUNTER → 2024-02-12 12:21 | Outpatient (BNV) | payer OTHER, SELFPAY | PROVIDERS: Emergency Provider Emergency Medicine; PCP Internal Medicine; Visit Provider Internal Medicine Cardiovascular Disease | DX: R53.1 Weakness (principal) | CPT/HCPCS: 93010 ==

== ENCOUNTER 2024-02-22 00:36 | Emergency (ER) | payer OTHER, SELFPAY ==
[2024-02-22] VITALS (16 sets, daily range): BP systolic 78–107; BP diastolic 43–63; PULSE 65–108; RESP 11–18; TEMP 36.7–37; O2SAT 93–100; BMI 21.9
--- NOTE | 2024-02-22 | ECG_ITS ---
Test Reason : weakness Blood Pressure : / mmHG Vent. Rate : 092 BPM Atrial Rate : 092 BPM P-R Int : 122 ms QRS Dur : 068 ms QT Int : 372 ms P-R-T Axes : 056 074 057 degrees QTc Int : 460 ms Normal sinus rhythm Normal ECG When compared with ECG of 12-FEB-2024 12:21, No significant change was found Referred By: Orquidea Zamudio Electronically Signed By:LULA GONZALEZ MD
--- NOTE | ~2024-02-22 | XR_ITS ---
EXAMINATION: XR CHEST CLINICAL INFORMATION: Weakness. COMPARISON: None available. TECHNIQUE: Frontal view of the chest was obtained. FINDINGS: No significant abnormality is noted involving the heart, lungs, mediastinum, bony thorax or soft tissues. XR/XR chest 1V IMPRESSION: No active cardiopulmonary disease
[2024-02-22 01:15] LABS: MANUAL DIFF FLAG NO
[2024-02-22 01:16] LABS: Venous Blood Gas Refer to POC result
[2024-02-22] MEDS: ondansetron HCL 4 MG/2 ML VIAL IVPUSH (01:16)
[2024-02-22] MEDS: Naloxone HCl 0.4 MG/ML VIAL 0.2 MG IVPUSH (01:16)
[2024-02-22 01:17] LABS: Basophils Absolute Auto 0.1 X10*3/uL (0.0-0.2); Basophils Percent Auto 0.6 % (0-2); Eosinophils Absolute Auto 0.5 X10*3/uL (0.0-0.4); Eosinophils Percent Auto 3.6 % (0-4); Hematocrit 37.2 % (37.0-47.0); Hemoglobin 11.9 g/dl (12.0-16.0); Imm Gran Abs Auto 0.06 X10*3/uL (0.00-0.03); Imm Gran Pct Auto 0.5 % (0.0-0.4); Lymphocytes Absolute Auto 2.3 X10*3/uL (1.2-4.9); Lymphocytes Percent Auto 17.4 % (20-40); Mean Corpuscular Hemoglobin 29.7 pg (27.0-33.0); Mean Corpuscular Volume 92.8 fL (80.0-98.0); Mean Platelet Volume 8.6 fL (9.4-12.3); Monocytes Absolute Auto 0.7 X10*3/uL (0.1-1.2); Monocytes Percent Auto 5.1 % (2-11); Neutrophils Absolute Auto 9.5 x10*3/uL (2.0-8.3); Neutrophils Percent Auto 72.8 % (45-73); Platelet Count 518 X10*3/uL (160-400); Red Blood Count 4.01 X10*6/uL (4.20-5.50); Red Cell Distribution Width 14.8 % (11.0-16.0)
[2024-02-22] MEDS: 0.9 % Sodium Chloride 1,000 ML 999 ML IV ×2 (01:18→02:30)
--- NOTE | 2024-02-22 01:20 | PC.NURSE ---
pt appears drowsy and sats dropping to 70s% on RA. pt arousable to name. ivf/narcan/zofran given per mar. pt more alert speaking full clear sentences. o2 sats 100% on RA. bp 102/48. MD to bedside.
[2024-02-22 01:23] LABS: VBG HCO3 25 mmol/L (22-26); VBG pCO2 55 mmHg; VBG pH 7.26 (7.32-7.43); VBG pO2 36 mmHg
[2024-02-22 01:26] LABS: Ammonia 19 umol/L (13-55)
[2024-02-22 01:31] LABS: Alanine Aminotransferase 12 U/L (0-31); Albumin Level 4.1 g/dL (3.5-5.0); Alkaline Phosphatase 92 U/L (39-117); Anion Gap 15 (12-20); Aspartate Amino Transferase 18 U/L (5-31); Bilirubin Direct < 0.2 mg/dL (0.0-0.5); Bilirubin Total 0.2 mg/dL (0.0-1.0); Blood Urea Nitrogen 27 mg/dL (9-16); Calcium 9.5 mg/dL (8.4-10.2); Carbon Dioxide 24 mmol/L (22-29); Chloride 109 mmol/L (96-108); Creatinine Clr Calc Pharmacy 30.8; Estimated Glomerular Filt Rate 36; Ethanol < 10 mg/dL; Glucose Random 111 mg/dL (60-115); Lipase 51 U/L (8-78); Magnesium 2.4 mg/dL (1.6-2.6); Potassium 4.6 mmol/L (3.3-5.1); Sodium 143 mmol/L (135-145); Total Protein 7.3 g/dL (6.5-8.0)
--- NOTE | 2024-02-22 01:31 | ED_ITS ---
HPI - Altered Mental Status General Chief Complaint: Altered Mental Status Stated Complaint: AMS Time Seen by Provider: 02/22/24 00:47 Source: patient, EMS and old records reviewed Mode of arrival: EMS Limitations: altered mental status History of Present Illness ED Provider: SHANE RDZ narrative: 63 yo female with PMH of RA not on medications, SBO, depression, HLD, RA s/p revision of prior R total hip arthroplasty on 02/06 she states she has done well seen on 02/11 here for dehydration and sent home. Tori son called 911 as he checked on her and she was sleepy and difficult to arouse. Patient was prescribed oxycodone for pain. She tells us she might have taken 3 tonight denies SI. On arrival to ED she was hypoxic 85% on RA, hypotensive to 80/50s and pinpoint pupils. She is very sedated and difficult to keep awake. IV placed and low dose IV narcan given on arrival with good immediate effect upon waking patient admits I might have taken too much complaint: decreased responsiveness and intoxication Onset (ago): unknown Timing confirmed by: family member Severity: severe Consistency of symptoms: constant Context: other (recent prescription for oxycodone) Associated symptoms: loss of appetite Related Data Home Medications ?Medication ?Instructions ?Recorded ?Confirmed [id number] 4 mg-folic acid 1 tab PO DAILY 12/02/23 02/01/24 200 mcg-vit K 25 mcg-lutein tablet (Centrum Minis Women 50 Plus) inulin 2 gram chewable tablet 2 g PO DAILY 02/01/24 02/01/24 (Fiber Gummies) Previous Rx's ?Medication ?Instructions ?Recorded Raised toilet seat #1 ea 10/10/23 SHOWER CHAIR #1 ea 10/10/23 walker #1 ea 11/10/23 Grab Bar #1 ea 12/04/23 Leg Forestry Technician #1 ea 12/04/23 stackable bath steps #1 ea 12/04/23 acetaminophen 325 mg tablet 650 mg (2 x 325 mg) PO Q6H PRN 02/09/24 Pain, Mild (Pain Scale 1-3), fever or headache 30 days #240 tabs aspirin 325 mg tablet 325 mg PO BID 42 days #84 tabs 02/09/24 celecoxib 200 mg capsule 200 mg PO BID 30 days #60 caps 02/09/24 docusate sodium 100 mg capsule 100 mg PO BID 14 days #28 caps 02/09/24 ondansetron HCl 4 mg tablet 4 mg PO Q6H PRN nausea and 02/13/24 vomiting 7 days #28 tabs oxycodone 5 mg tablet 5 mg PO Q4H PRN Pain, 02/17/24 Moderate(Pain Scale 4-6) 7 days #42 tabs Allergies Allergy/AdvReac Type Severity Reaction Status Date / Time codeine AdvReac Intermediate nausea and Verified 02/22/24 01:00 vomitting Review of Systems 2 Review of Systems: ROS unable to be obtained due to altered mental status [facility] Past Medical History Attestation statement: The following information was validated with the patient. Source: old records reviewed Medical History Rheumatoid arthritis Arthritis Bowel obstruction Swelling of lower extremity Elevated cholesterol History of opiate therapy Vitamin D deficiency Pure hypercholesterolemia Primary osteoarthritis of right hip Depression Osteoporosis Knee locking Osteoarthritis of hip Surgical History History of total right hip replacement (12/13/23) Hx of arthroscopy of right knee History of total left hip arthroplasty Hx of bilateral cataract extraction Hx of colonoscopy Hx of section H/O left wrist surgery Family History Family History Father Cancer Mother Bone cancer Osteoporosis Social History Social History Household Members: Children Housing: House Are you a primary direct care professional to a significant other at home: No Do you presently have visiting nurse or other home services: No Alcohol intake: current Alcohol intake frequency: does not drink Patient Tobacco Use Status: Former Tobacco user Tobacco use type: Cigarette Smoked in Last 30 Days: No e-Cigarette/Vaping Use: Never Used Second Hand Smoke Exposure: No Use of substances other than those prescribed or required for medical reasons: Yes Substance Use Type: Prescription Drugs Advance Directives: No Advance Directives Information Provided: Yes Do you have a plan to hurt others: No Plan service: No Current occupational status: disabled Current occupation: rt handed Cognitive needs: No Hearing needs: No Vision needs: No Physical Exam ED Vital Signs: Vital Signs - 24 hr 02/22/24 00:55 02/22/24 01:00 02/22/24 01:10 Temperature 98.6 F Pulse Rate 95 95 Respiratory Rate 11 L 18 Blood Pressure 93/50 L 93/50 L Pulse Oximetry 93 99 Oxygen Delivery Method Room Air Room Air 02/22/24 01:30 02/22/24 01:38 02/22/24 02:30 Temperature Pulse Rate 82 72 Respiratory Rate 16 16 Blood Pressure 91/55 L 102/58 L 95/58 L Pulse Oximetry 99 100 Oxygen Delivery Method Room Air Room Air 02/22/24 03:20 02/22/24 03:30 02/22/24 04:45 Temperature Pulse Rate 80 74 70 Respiratory Rate 16 15 16 Blood Pressure 80/52 L 104/63 90/43 L Pulse Oximetry 100 100 99 Oxygen Delivery Method Room Air Room Air Room Air 02/22/24 05:30 02/22/24 05:42 02/22/24 06:28 Temperature Pulse Rate 65 78 71 Respiratory Rate 16 16 16 Blood Pressure 81/47 L 90/56 L 78/46 L Pulse Oximetry 98 98 97 Oxygen Delivery Method Room Air Room Air Room Air 02/22/24 06:39 Temperature 98.5 F Pulse Rate 74 Respiratory Rate 16 Blood Pressure 86/50 L Pulse Oximetry 97 Oxygen Delivery Method Room Air BMI result Body Mass Index 21.9 Appearance: somnolent needs repetitive waking up, 85% on RA, holding arms out and up in stuck position. confused. moderate acute distress. Eyes: Pupils pinpoint ENT: Pharynx dry MM, atraumatic Neck: Normal inspection. Neck supple. CVS: Normal heart rate and rhythm. Pulses normal. Respiratory: RR very shallow and slow less than 8 on arrival mild respiratory distress. Breath sounds normal. Abdomen: Soft and non-tender. Skin: Skin warm and dry. pale skin color. Normal skin turgor. Extremities: No lower extremity edema. No calf ttp Neuro:confused initially No motor deficit. No sensory deficit. after narcan oriented and improved Course Course Course Narrative: after narcan patient woke up no longer confused or sedated alert BP and hypoxia improved denies access to BP medications, BP on and off up and down mentating fine, drinking fluids repeat BMP ordered added on albumin HR normal urinated BP is low but asymptomatic Reevaluation(s) Reevaluation #1: patient's BP is still low but asymptomatic she has no signs of pneumonia or UTI she is positive for fentanyl suspect med related hypotension PO midodrine ordered as well Medications Administered Generic Name Dose Route Start Last Admin Trade Name Freq PRN Reason Stop Dose Admin Albumin Human 100 mls @ 100 mls/hr 02/22/24 05:00 02/22/24 06:03 Kedbumin 25 % IV 02/22/24 06:59 100 mls/hr Q1H KM Administration Sodium Chloride 1,000 mls @ 100 mls/hr 02/22/24 05:45 02/22/24 06:03 Ns IVCONT 100 mls/hr .Q10H KM Administration Sodium Chloride 500 mls @ 500 mls/hr 02/22/24 06:25 02/22/24 06:39 Ns IV 02/22/24 07:24 500 mls/hr .Q1H ONE Administration Discontinued Medications Generic Name Dose Route Start Last Admin Trade Name Freq PRN Reason Stop Dose Admin Sodium Chloride 1,000 mls @ 999 mls/hr 02/22/24 01:10 02/22/24 02:30 Ns IV 02/22/24 02:10 Infused .Q1H1M ONE Infusion Sodium Chloride 1,000 mls @ 999 mls/hr 02/22/24 01:35 02/22/24 03:28 Ns IV 02/22/24 02:35 Infused .Q1H1M ONE Infusion Midodrine 5 mg 02/22/24 05:33 02/22/24 06:03 Midodrine Hcl 5 Mg Tablet PO 02/22/24 05:34 5 mg ONCE ONE Administration Naloxone HCl 0.2 mg 02/22/24 01:12 02/22/24 01:16 Naloxone Hcl 0.4 Mg/Ml Vial IVPUSH 02/22/24 01:13 0.2 mg STAT STA Administration Ondansetron HCl 4 mg 02/22/24 01:12 02/22/24 01:16 Ondansetron Hcl 4 Mg/2 Ml Vial IVPUSH 02/22/24 01:13 4 mg ONCE ONE Administration Medical Decision Making Medical Decision Making MDM Narrative: 63 yo female with PMH of RA not on medications, SBO, depression, HLD, RA s/p R total hip arthroplasty on 02/06 now here with c/o AMS with shallow respiration, hypotension, hypoxia and pinpoint pupils - given IV narcan and fluids. Suspect opiate intoxication. Will monitor closely change in mental status, hypotension, hypoxia due to opiate overdose and not infection or severe sepsis, dehydration JAVID due to dehydration and not infection or severe sepsis. Differential Diagnosis Differential Diagnoses: The differential diagnosis associated with the presentation includes opiate overdose Admission/Observation Consideration of admission/observation: Escalation of care including admission/observation considered observe until clinically sober and BP improved signed out to Dr. Sebastian if no improvement will refer to ICU Consult Healthcare Provider Dr. Marin notified at 630am regarding BPs will continue to monitor for response in ED if no improvement in next couple of hours plan to admit to ICU. Lab Data MDM Lab Attestation statement: I reviewed the patient's lab results. VBG improved 02/22/24 01:07 02/22/24 04:59 Labs: Lab Results 02/22/24 02/22/24 02/22/24 Range/Units 01:07 01:11 02:07 WBC 13.0 H (4.8-10.8) X10*3/uL RBC 4.01 L (4.20-5.50) X10*6/uL Hgb 11.9 L (12.0-16.0) g/dl Hct 37.2 (37.0-47.0) % MCV 92.8 (80.0-98.0) fL MCH 29.7 (27.0-33.0) pg MCHC 32.0 (31.0-35.0) g/dl RDW 14.8 (11.0-16.0) % Plt Count 518 H D (160-400) X10*3/uL MPV 8.6 L (9.4-12.3) fL Immature Gran % (Auto) 0.5 H (0.0-0.4) % Neut % (Auto) 72.8 (45-73) % Lymph % (Auto) 17.4 L (20-40) % [place] % (Auto) 5.1 (2-11) % Eos % (Auto) 3.6 (0-4) % Baso % (Auto) 0.6 (0-2) % Lymph # (Auto) 2.3 (1.2-4.9) X10*3/uL [place] # (Auto) 0.7 (0.1-1.2) X10*3/uL Eos # (Auto) 0.5 H (0.0-0.4) X10*3/uL Baso # (Auto) 0.1 (0.0-0.2) X10*3/uL Abs Immat Gran (auto) 0.06 H (0.00-0.03) X10*3/uL Absolute Neuts (auto) 9.5 H (2.0-8.3) x10*3/uL Absolute Nucleated RBC 0.000 (0.0-0.012) X10*3/uL Nucleated RBC % (auto) 0.0 (0.0-0.2) /100WBC VBG pH 7.26 L 7.31 L (7.32-7.43) VBG pCO2 55 47 mmHg VBG pO2 36 34 mmHg VBG HCO3 25 24 (22-26) mmol/L VBG O2 Saturation 56.0 50.0 % VBG Base Excess -2.0 -2.2 mmol/L Sodium 143 (135-145) mmol/L Potassium 4.6 (3.3-5.1) mmol/L Chloride 109 H (96-108) mmol/L Carbon Dioxide 24 (22-29) mmol/L Anion Gap 15 (12-20) BUN 27 H (9-16) mg/dL Creatinine 1.46 H (0.5-1.4) mg/dL Estim Creat Clear Calc 30.8 Estimated GFR 36 Random Glucose 111 (60-115) mg/dL Calcium 9.5 (8.4-10.2) mg/dL Magnesium 2.4 (1.6-2.6) mg/dL Total Bilirubin 0.2 (0.0-1.0) mg/dL Direct Bilirubin < 0.2 (0.0-0.5) mg/dL AST 18 (5-31) U/L ALT 12 (0-31) U/L Alkaline Phosphatase 92 (39-117) U/L Ammonia 19 (13-55) umol/L Troponin I High Sens 9.1 (<3.5-17.0) ng/L Total Protein 7.3 (6.5-8.0) g/dL Albumin 4.1 (3.5-5.0) g/dL Lipase 51 (8-78) U/L Urine Color Urine Appearance Urine pH (5.0-9.0) Ur Specific [place] (1.005-1.025) Urine Protein (Neg-Trace) mg/dL Urine Glucose (UA) (Negative) mg/dL Urine Ketones (Negative) mg/dL Urine Blood (Negative) Urine Nitrite (Negative) Ur Leukocyte Esterase (Negative) Urine RBC (0-2) /HPF Urine WBC (0-5) /HPF Ur Squamous Epith Cells (0-2) /HPF Urine Bacteria (None Seen) Hyaline Casts (0-2) /LPF Salicylates < 5.0 L (15-30) mg/dL Urine Opiates Screen (Not Detect) Ur Buprenorphine Scrn (Not Detect) ng/mL Ur Oxycodone Screen (Not Detect) ng/mL Urine Methadone Screen (Not Detect) ng/mL Urine Fentanyl Screen (Not Detect) Acetaminophen < 3 (<30) mcg/mL Ur Barbiturates Screen (Not Detect) Ur Phencyclidine Scrn (Not Detect) Ur Amphetamines Screen (Not Detect) U Benzodiazepines Scrn (Not Detect) Urine Cocaine Screen (Not Detect) U Marijuana (THC) Screen (Not Detect) Ethyl Alcohol < 10 mg/dL 02/22/24 02/22/24 Range/Units 04:59 05:07 WBC (4.8-10.8) X10*3/uL RBC (4.20-5.50) X10*6/uL Hgb (12.0-16.0) g/dl Hct (37.0-47.0) % MCV (80.0-98.0) fL MCH (27.0-33.0) pg MCHC (31.0-35.0) g/dl RDW (11.0-16.0) % Plt Count (160-400) X10*3/uL MPV (9.4-12.3) fL Immature Gran % (Auto) (0.0-0.4) % Neut % (Auto) (45-73) % Lymph % (Auto) (20-40) % [place] % (Auto) (2-11) % Eos % (Auto) (0-4) % Baso % (Auto) (0-2) % Lymph # (Auto) (1.2-4.9) X10*3/uL [place] # (Auto) (0.1-1.2) X10*3/uL Eos # (Auto) (0.0-0.4) X10*3/uL Baso # (Auto) (0.0-0.2) X10*3/uL Abs Immat Gran (auto) (0.00-0.03) X10*3/uL Absolute Neuts (auto) (2.0-8.3) x10*3/uL Absolute Nucleated RBC (0.0-0.012) X10*3/uL Nucleated RBC % (auto) (0.0-0.2) /100WBC VBG pH (7.32-7.43) VBG pCO2 mmHg VBG pO2 mmHg VBG HCO3 (22-26) mmol/L VBG O2 Saturation % VBG Base Excess mmol/L Sodium 139 (135-145) mmol/L Potassium 4.6 (3.3-5.1) mmol/L Chloride 113 H (96-108) mmol/L Carbon Dioxide 19 L (22-29) mmol/L Anion Gap 12 (12-20) BUN 24 H (9-16) mg/dL Creatinine 1.00 (0.5-1.4) mg/dL Estim Creat Clear Calc 44.9 Estimated GFR 56 Random Glucose 94 (60-115) mg/dL Calcium 8.1 L D (8.4-10.2) mg/dL Magnesium (1.6-2.6) mg/dL Total Bilirubin (0.0-1.0) mg/dL Direct Bilirubin (0.0-0.5) mg/dL AST (5-31) U/L ALT (0-31) U/L Alkaline Phosphatase (39-117) U/L Ammonia (13-55) umol/L Troponin I High Sens (<3.5-17.0) ng/L Total Protein (6.5-8.0) g/dL Albumin (3.5-5.0) g/dL Lipase (8-78) U/L Urine Color Yellow Urine Appearance Clear Urine pH 6.5 (5.0-9.0) Ur Specific [place] 1.020 (1.005-1.025) Urine Protein 30 (1+) H (Neg-Trace) mg/dL Urine Glucose (UA) Negative (Negative) mg/dL Urine Ketones Negative (Negative) mg/dL Urine Blood Negative (Negative) Urine Nitrite Negative (Negative) Ur Leukocyte Esterase Trace H (Negative) Urine RBC 0-2 (0-2) /HPF Urine WBC 6-10 H (0-5) /HPF Ur Squamous Epith Cells 6-10 (0-2) /HPF Urine Bacteria 1+ (None Seen) Hyaline Casts 6-10 (0-2) /LPF Salicylates (15-30) mg/dL Urine Opiates Screen POSITIVE H (Not Detect) Ur Buprenorphine Scrn Not Detected (Not Detect) ng/mL Ur Oxycodone Screen Positive H (Not Detect) ng/mL Urine Methadone Screen Not Detected (Not Detect) ng/mL Urine Fentanyl Screen POSITIVE H (Not Detect) Acetaminophen (<30) mcg/mL Ur Barbiturates Screen Not Detected (Not Detect) Ur Phencyclidine Scrn Not Detected (Not Detect) Ur Amphetamines Screen Not Detected (Not Detect) U Benzodiazepines Scrn Not Detected (Not Detect) Urine Cocaine Screen Not Detected (Not Detect) U Marijuana (THC) Screen POSITIVE H (Not Detect) Ethyl Alcohol mg/dL Independent Interpretation I performed an independent interpretation of an: EKG and Plain X-Ray (no pneumonia) Interpretation: Rate: 92 Rhythm: NSR [place]: normal Normal P waves. Normal FERNANDO. Normal QRS complex. ST T wave : normal no GEORGE qTC: 460 prior studies: no acute ischemia The study has been interpreted contemporaneously by me. . Radiology Impression Discussion of test interpretation with radiology: I have reviewed the radiologist's reading. Independent Historian Clinical information obtained from an independent historian. History obtained from or confirmed by: EMS External Record Review External record reviewed: Inpatient record Critical Care Time Critical Care Time Critical Care Time: Yes Total Critical Care Time: 75 Attestation: review of records, IV narcan for overdose, repeat labs, IVF x 2L, repeat assessments I attest to this time spent taking care of the patient Discharge Plan Discharge Clinical Impression: Altered mental status, Acute dehydration, Opiate overdose, Acute hypotension Patient Disposition: Still a Patient Prescriptions: No Action (DME) Raised toilet seat See Rx Instructions .ROUTE .MEDSUPPLY Qty: 1 0RF Rx Instructions: As directed (DME) SHOWER CHAIR See Rx Instructions .ROUTE .MEDSUPPLY Qty: 1 0RF Rx Instructions: As directed (DME) walker Misc See Rx Instructions .MEDSUPPLY Qty: 1 0RF Rx Instructions: Folding Front wheeled walker (DME) stackable bath steps See Rx Instructions .Route .MEDSUPPLY Qty: 1 0RF Rx Instructions: As directed (DME) Leg Forestry Technician See Rx Instructions .Route .MEDSUPPLY Qty: 1 0RF Rx Instructions: As directed (DME) Grab Bar See Rx Instructions .ROUTE .MEDSUPPLY Qty: 1 0RF Rx Instructions: As directed ondansetron HCl 4 mg tablet 4 mg PO Q6H PRN (Reason: nausea and vomiting) 7 Days Qty: 28 0RF oxycodone 5 mg tablet 5 mg PO Q4H PRN (Reason: Pain, Moderate(Pain Scale 4-6)) 7 Days Qty: 42 0RF Rx Instructions: Partial Fill upon patient request. Fiber Gummies 2 gram Tablet,Chewable 2 g PO DAILY celecoxib 200 mg Capsule 200 mg PO BID 30 Days Qty: 60 0RF acetaminophen 325 mg Tablet 650 mg PO Q6H PRN (Reason: Pain, Mild (Pain Scale 1-3), fever or headache) 30 Days Qty: 240 0RF aspirin 325 mg Tablet 325 mg PO BID 42 Days Qty: 84 0RF docusate sodium 100 mg Capsule 100 mg PO BID 14 Days Qty: 28 0RF Centrum Minis Women 50 Plus 4 mg iron-200 mcg-25 mcg Tablet 1 tab PO DAILY Print Language: Prydeinig
[2024-02-22 01:38] LABS: Acetaminophen LAB < 3 mcg/mL (<30); Salicylate < 5.0 mg/dL (15-30)
[2024-02-22 01:58] LABS: Troponin-I High Sensitivity 9.1 ng/L (<3.5-17.0)
[2024-02-22 02:11] LABS: Venous Blood Gas Refer to POC result
[2024-02-22 02:17] LABS: VBG Base Excess -2.2 mmol/L; VBG HCO3 24 mmol/L (22-26); VBG pCO2 47 mmHg; VBG pH 7.31 (7.32-7.43); VBG pO2 34 mmHg
--- NOTE | 2024-02-22 02:30 | PC.NURSE ---
MD aware of pt bp. 2nd bag ivf infusing. pt is axox4 speaking full clear sentences. resp even and unlabored. calm/cooperative resting comfortably. skin wpd.
--- NOTE | 2024-02-22 03:31 | PC.NURSE ---
manual bp obtained to confirm low bp. 80/52 manual bp. md to bedside. pt remains axox4 speaking full clear sentences. skin wpd. pt tolerating po water intake. nsr on monitor. to continue to monitor per MD. call muhammad within reach.
[2024-02-22] MEDS: Albumin Human 25 % 100 ML IV ×2 (05:06→06:03)
--- NOTE | 2024-02-22 05:09 | PC.NURSE ---
pt ammbulatory to bathroom and back with steady gait. ua sample obtained and sent to lab. bp as documented, albumin infusing per mar. pt is axox4 speaking full clear sentences. skin wpd. call muhammad within reach.
[2024-02-22 05:13] LABS: Appearance Urine Clear; Color Urine Yellow; Glucose Urine UA Negative (Negative); Leukocyte Esterase Urine Trace (Negative); Nitrite Urine Negative (Negative); PH 6.5 (5.0-9.0); UMIC TRIGGER UACC YES; Urine Blood Negative (Negative); Urine Ketones Negative (Negative); Urine Protein 30 (1+) mg/dL (Neg-Trace)
[2024-02-22 05:25] LABS: Amphetamine Screen Urine Not Detected (Not Detect); Barbiturates, Urine Not Detected (Not Detect); Benzodiazepines Screen Urine Not Detected (Not Detect); Buprenorphine Scr Not Detected (Not Detect); Cannabinoid Screen Urine POSITIVE (Not Detect); Cocaine Screen Urine Not Detected (Not Detect); Fentanyl, urine POSITIVE (Not Detect); Methadone Screen, Urine Not Detected (Not Detect); Opiate Screen Urine POSITIVE (Not Detect); Oxycodone Screen Urine Positive (Not Detect); Phencyclidine Screen Urine Not Detected (Not Detect)
[2024-02-22 05:28] LABS: Anion Gap 12 (12-20); Blood Urea Nitrogen 24 mg/dL (9-16); Calcium 8.1 mg/dL (8.4-10.2); Carbon Dioxide 19 mmol/L (22-29); Chloride 113 mmol/L (96-108); Creatinine Clr Calc Pharmacy 44.9; Estimated Glomerular Filt Rate 56; Glucose Random 94 mg/dL (60-115); Potassium 4.6 mmol/L (3.3-5.1); Sodium 139 mmol/L (135-145)
[2024-02-22 05:29] LABS: Bacteria Urine 1+ (None Seen); RBC Urine 0-2 /HPF (0-2); UACC Culture Trigger YES
[2024-02-22] MEDS: Midodrine HCl 5 MG TABLET PO (06:03)
[2024-02-22] MEDS: 0.9 % Sodium Chloride 1,000 ML 100 ML IVCONT (06:03)
--- NOTE | 2024-02-22 06:29 | PC.NURSE ---
MD aware of bp. ivf/albumin infusing per mar. pt tolerated po med given per mar. axox4. denies cp/sob/dizziness. neuros intact. awaiting further orders. call muhammad within reach.
[2024-02-22] MEDS: 0.9 % Sodium Chloride 500 ML IV (06:39)
--- NOTE | 2024-02-22 06:40 | PC.NURSE ---
2nd iv established. ivf bolus infusing per mar.
== END 2024-02-22 10:19 | disposition home or self-care (01) ==
PROVIDERS: Emergency Medicine; Emergency Provider Emergency Medicine; PCP Internal Medicine
DX: T40.2X1A Poisoning by other opioids, accidental (unintentional), initial encounter (principal); R41.82 Altered mental status, unspecified; Y92.009 Unspecified place in unspecified non-institutional (private) residence as the place of occurrence of the external cause; E86.0 Dehydration; N17.9 Acute kidney failure, unspecified; I95.2 Hypotension due to drugs; R09.02 Hypoxemia; Z79.899 Other long term (current) drug therapy; Z79.82 Long term (current) use of aspirin; Z79.891 Long term (current) use of opiate analgesic
CPT/HCPCS: 36415; 71045; 80048; 80076; 80143; 80179; 80307; 81001; 82140; 82803; 83690; 83735; 84484; 85025; 87086; 93005; 96361; 96365; 96366; 96375; 99284; 99285; J2310; J2405; P9047

== ENCOUNTER → 2024-02-22 00:54 | Outpatient (BNV) | payer OTHER, SELFPAY | PROVIDERS: Emergency Provider Emergency Medicine; PCP Internal Medicine; Visit Provider Internal Medicine Cardiovascular Disease | DX: R53.1 Weakness (principal) | CPT/HCPCS: 93010 ==

== ENCOUNTER 2024-02-23 13:04 | Outpatient (AMB) | payer OTHER, SELFPAY ==
--- NOTE | 2024-02-23 13:10 | A.OFFVIS_ITS ---
Intake Visit Reasons: 2WK PO: R MARIO Revision w/NE 02/07/24 Intake Note: Radha a 63 year old female who presents today for a post operative visit s/p right MARIO revision on 02/07/24 with NE. Patient reports she continues to have discomfort however she has had improvement of pain. Allergies codeine Adverse Reaction (Intermediate, Verified 02/23/24 13:12) nausea and vomitting Medication List - Last Reconciled 02/23/24 by Aminata Root PA-C acetaminophen 650 mg (2 x 325 mg) PO Q6H PRN 30 days aspirin 325 mg PO BID 42 days celecoxib 200 mg PO BID 30 days docusate sodium 100 mg PO BID 14 days [Grab Bar As directed] inulin (Fiber Gummies) 2 grams PO DAILY [Leg Correctional Officer Sergeant As directed] zfrlvomr-lul-qbwf-FA-vit K-lut 4 mg iron-200 mcg-25 mcg (Centrum Minis Women 50 Plus) 1 tab PO DAILY ondansetron HCl 4 mg PO Q6H PRN 7 days oxycodone 5 mg PO Q4H PRN 7 days [Raised toilet seat As directed] [SHOWER CHAIR As directed] [stackable bath steps As directed] walker Folding Front wheeled walker HPI HPI 2WK PO: R MARIO Revision w/NE 02/07/24: Details: 63-year-old female who returns to the office today for post-op right MARIO revision, 02/07/[address] Levy. She states she has improvement in her pain however continues to have discomfort in her hip. She has not yet started with physical therapy. She finds relief with the pain medication. She is doing well overall and has no other concerns today. [facility] Medical History Rheumatoid arthritis Arthritis Bowel obstruction Swelling of lower extremity Elevated cholesterol History of opiate therapy Vitamin D deficiency Pure hypercholesterolemia Primary osteoarthritis of right hip Depression Osteoporosis Knee locking Osteoarthritis of hip Surgical History History of total right hip replacement (12/13/23) Hx of arthroscopy of right knee History of total left hip arthroplasty Hx of bilateral cataract extraction Hx of colonoscopy Hx of section H/O left wrist surgery Family History Father Cancer Mother Bone cancer Osteoporosis Social History Household Members: Children Housing: House Are you a primary child care counselor to a significant other at home: No Do you presently have visiting nurse or other home services: No Alcohol intake: current Alcohol intake frequency: does not drink Patient Tobacco Use Status: Former Tobacco user Tobacco use type: Cigarette e-Cigarette/Vaping Use: Never Used Second Hand Smoke Exposure: No Substance Use Type: Prescription Drugs service: No Current occupational status: disabled Current occupation: rt handed Cognitive needs: No Hearing needs: No Vision needs: No Review of Systems Const All systems reviewed & are unremarkable except as noted in HPI and below Physical Exam Const General: cooperative and no acute distress Orientation/consciousness: patient oriented x3 Resp Effort & Inspection: normal respiratory effort and able to speak in complete sentences Cardio Peripheral pulses: Peripheral pulses 2+ throughout Neuro General: patient oriented x3 Extrem Other: Right hip Incision clean, dry and intact. No redness or drainage. She can activate hip flexion Calf supple, nontender. NVI. Assessment & Plan Assessment & Plan (1) History of revision of total replacement of right hip joint: Code(s): Z96.641 - Presence of right artificial hip joint Category: Medical Plan [place] removed, steri strips applied. She will begin to transition to Outpatient PT to continue working on Gait training, ROM and quad strength. No driving for another 4 weeks. She will require ppx abx for dental procedures. She will f/u in 4 weeks, sooner if needed. We did have a discussion about her opiate use, as it does seem like the incident was accidental, I encouraged her to continue with Tylenol and Celebrex for the time being. Patient Instructions: Scribed for Aminata Root PA-C, by Kamran Rivas biomedical analytical scientist, on 02/23/2024 at 3:00 PM EST.? I, Aminata Root PA-C, have personally reviewed and agree with the information entered by the scribe. Coding Level of Care Code Global (65331) Diagnoses History of revision of total replacement of right hip joint Z96.641
== END 2024-02-23 14:21 | disposition home or self-care (01) ==
PROVIDERS: PCP Internal Medicine; Visit Provider Physician Assistant
DX: Z96.641 Presence of right artificial hip joint (principal)
CPT/HCPCS: 99024

== ENCOUNTER → 2024-02-23 13:04 | Outpatient (BNVA) | payer OTHER, SELFPAY | PROVIDERS: PCP Internal Medicine; Visit Provider Physician Assistant | DX: Z47.1 Aftercare following joint replacement surgery (principal); Z96.641 Presence of right artificial hip joint | CPT/HCPCS: 99212 ==

== ENCOUNTER 2024-03-15 11:59 | Outpatient (REF) | payer OTHER, SELFPAY ==
--- NOTE | ~2024-03-15 | XR_ITS ---
EXAMINATION: XR HIP, RIGHT on 03/15/24 and 04/13/24 CLINICAL INFORMATION: Pain COMPARISON: None available. TECHNIQUE: Two views of the right hip on 03/15/2024 and one view of the right hip on 04/13/2024 FINDINGS: Prosthetic components of the right total hip arthroplasty are appropriately aligned without periprosthetic fracture or abnormal lucency. No component migration. Soft tissues are normal. XR/XR hip RT min 2V IMPRESSION: Appropriate alignment of the right total hip arthroplasty without surrounding abnormalities. Electronically signed by: Jenniffer Garcia MD 04/15/2024 07:33 AM EDT
== END 2024-03-15 12:00 | disposition home or self-care (01) ==
LOC: HO.HOSX 11:59
PROVIDERS: Visit Provider Orthopaedic Surgery
DX: M25.361 Other instability, right knee (principal); Z96.641 Presence of right artificial hip joint
CPT/HCPCS: 73502; 99212

== ENCOUNTER 2024-03-15 13:17 | Outpatient (AMB) | payer OTHER, SELFPAY ==
--- NOTE | 2024-03-15 13:50 | A.OFFVIS_ITS ---
Intake Visit Reasons: 6WK PO: R MARIO Revision w/NE 02/07/24 Intake Note: Radha is a 63 year old female who presents today for a post operative appointment s/p Right MARIO Revision 02/07/24. Patient reports that she is doing well with no concerns of the right hip.Dhe feels occasional pain at night. She does however feel pain in the right knee. Allergies codeine Adverse Reaction (Intermediate, Verified 02/23/24 13:12) nausea and vomitting HPI HPI 6WK PO: R MARIO Revision w/NE 02/07/24: Details: Radha is a 63 year old female who presents today for a post operative appointment s/p Right MARIO Revision 02/07/24. Patient reports that she is doing well with no concerns of the right hip.She feels occasional pain at night. She does however feel pain in the right knee. 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) Hx of arthroscopy of right knee History of total left hip arthroplasty Hx of bilateral cataract extraction Hx of colonoscopy Hx of section H/O left wrist surgery Family History Father Cancer Mother Bone cancer Osteoporosis Social History Household Members: Children Housing: House Are you a primary manager medicare to a significant other at home: No Do you presently have visiting nurse or other home services: No Alcohol intake: current Alcohol intake frequency: does not drink Patient Tobacco Use Status: Former Tobacco user Tobacco use type: Cigarette e-Cigarette/Vaping Use: Never Used Second Hand Smoke Exposure: No Substance Use Type: Prescription Drugs service: No Current occupational status: disabled Current occupation: rt handed Cognitive needs: No Hearing needs: No Vision needs: No Physical Exam Extrem Other: No pain with hip ROM Walking comfortably Right knee valgus alignment with lateral compartment TTP 1+ valgus instability right knee Results Reviewed Results Reviewed: I personally reviewed relevant radiographs. Right MARIO in expected post operative position with no hardware complications or evidence of loosening Assessment & Plan Assessment & Plan (1) History of revision of total replacement of right hip joint: Code(s): Z96.641 - Presence of right artificial hip joint Category: Medical Plan: Doing well. Continue WBAT and may follow uo in 6 weeks (2) Instability of right knee joint: Code(s): M25.361 - Other instability, right knee Category: Medical Plan: I recommend a lateral unloading brace right knee. She has valgus OA and not interested in surgery at this time. Orders: Orders XR pelvis 1-2V 03/15/24 M25.559 - Pain in unspecified hip Coding Level of Care Code Est Pt Level 3 (57897) Global (85138) Diagnoses History of revision of total replacement of right hip joint Z96.641 Instability of right knee joint M25.361
== END 2024-03-15 14:08 | disposition home or self-care (01) ==
PROVIDERS: PCP Internal Medicine; Visit Provider Orthopaedic Surgery
DX: M25.361 Other instability, right knee (principal); Z96.641 Presence of right artificial hip joint
CPT/HCPCS: 99024; 99213

== ENCOUNTER 2024-04-13 12:04 | Outpatient (AMB) | payer OTHER, SELFPAY ==
--- NOTE | 2024-04-13 12:08 | MHC.OFFVIS ---
Intake Visit Reasons: PO R MARIO Revision w/NE 02/07/24 Intake Note: Radha is a 63 year old female who presents today for a follow up of her right hip, s/p R MARIO 12/13/2023 & Revision 02/07/24. Patient presents today with her walker for ambulation. She expresses she does not expect to get better over night but is having worsening of pain. She is utilizing her walker because she does not feel safe enough to continue using her cane. She expresses pain in groin area, weakness, and instability in the right leg. When she utlizies the cane in area where she can not use her walker she has shooting pain that goes from her knee to her right hip. She says PT has noticed she cannot do the exercises as well in the last two weeks and they recommended she use the walker instead of cane. Tylenol and oxycodone is not providing her adequate relief. Icing and topical gel gives her mild relief. Allergies codeine Adverse Reaction (Intermediate, Verified 04/13/24 12:20) nausea and vomitting HPI HPI PO R MARIO Revision w/NE 02/07/24: Details: Radha is a 63 year old female who presents today for a follow up of her right hip, s/p R MARIO 12/13/2023 & Revision 02/07/24. Patient presents today with her walker for ambulation. She expresses she does not expect to get better over night but is having worsening of pain. She is utilizing her walker because she does not feel safe enough to continue using her cane. She expresses pain in groin area, weakness, and instability in the right leg. When she utlizies the cane in area where she can not use her walker she has shooting pain that goes from her knee to her right hip. She says PT has noticed she cannot do the exercises as well in the last two weeks and they recommended she use the walker instead of cane. Tylenol and oxycodone is not providing her adequate relief. Icing and topical gel gives her mild relief. 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) Hx of arthroscopy of right knee History of total left hip arthroplasty Hx of bilateral cataract extraction Hx of colonoscopy Hx of section H/O left wrist surgery Family History Father Cancer Mother Bone cancer Osteoporosis Social History Household Members: Children Housing: House Are you a primary home care liaison to a significant other at home: No Do you presently have visiting nurse or other home services: No Alcohol intake: current Alcohol intake frequency: does not drink Patient Tobacco Use Status: Former Tobacco user Tobacco use type: Cigarette e-Cigarette/Vaping Use: Never Used Second Hand Smoke Exposure: No Substance Use Type: Prescription Drugs service: No Current occupational status: disabled Current occupation: rt handed Cognitive needs: No Hearing needs: No Vision needs: No Physical Exam Extrem Other: No pain with passive range of motion right hip Walks well with a walker but moderate antalgia without. Results Reviewed Results Reviewed: There is no evidence of hardware complication status post revision stem right femur Assessment & Plan Assessment & Plan (1) History of revision of total replacement of right hip joint: Code(s): Z96.641 - Presence of right artificial hip joint Category: Medical Plan: DIOR is having pain but radiographs are normal or room and I recommend she continue weight-bearing with a walker. Follow up as scheduled. Orders: Orders XR pelvis 1-2V Today M25.559 - Pain in unspecified hip XR hip RT 1V Today M25.559 - Pain in unspecified hip XR femur RT 2V Today Z96.641 - Presence of right artificial hip joint Coding Level of Care Code Global (46237) Diagnoses History of revision of total replacement of right hip joint Z96.641
== END 2024-04-13 14:51 | disposition home or self-care (01) ==
PROVIDERS: PCP Internal Medicine; Visit Provider Orthopaedic Surgery
DX: Z96.641 Presence of right artificial hip joint (principal)
CPT/HCPCS: 99024

== ENCOUNTER 2024-04-13 12:04 | Outpatient (REF) | payer OTHER, SELFPAY ==
--- NOTE | ~2024-04-13 | XR_ITS ---
EXAMINATION: XR PELVIS CLINICAL INFORMATION: Hip replacement COMPARISON: Pelvis x-ray on 02-28 TECHNIQUE: AP view of the pelvis. FINDINGS: Prosthetic components of the bilateral total hip arthroplasty are appropriately aligned. No periprosthetic fracture. There are heterotopic calcifications adjacent to the left proximal femur. No acute fracture or dislocation. There is atherosclerotic disease. XR/XR pelvis 1-2V IMPRESSION: Appropriate alignment of the bilateral total hip arthroplasty. Electronically signed by: Jenniffer Garcia MD 04/15/2024 07:29 AM EDT
--- NOTE | ~2024-04-13 | XR_ITS ---
EXAMINATION: XR FEMUR, RIGHT CLINICAL INFORMATION: Artificial hip COMPARISON: Pelvis x-ray 02-28 TECHNIQUE: AP and lateral views of the right femur were obtained. FINDINGS: No fracture. No osseous lesions. Distal portion of the hip replacement is unremarkable. Degenerative disease at the knee joint. XR/XR femur RT 2V IMPRESSION: Degenerative disease at the knee joint. Electronically signed by: Jenniffer Garcia MD 04/15/2024 07:28 AM EDT
--- NOTE | ~2024-04-13 | XR_ITS ---
EXAMINATION: XR HIP, RIGHT on 03/15/24 and 04/13/24 CLINICAL INFORMATION: Pain COMPARISON: None available. TECHNIQUE: Two views of the right hip on 03/15/2024 and one view of the right hip on 04/13/2024 FINDINGS: Prosthetic components of the right total hip arthroplasty are appropriately aligned without periprosthetic fracture or abnormal lucency. No component migration. Soft tissues are normal. XR/XR hip RT 1V IMPRESSION: Appropriate alignment of the right total hip arthroplasty without surrounding abnormalities. Electronically signed by: Jenniffer Garcia MD 04/15/2024 07:33 AM EDT
== END 2024-04-13 12:05 | disposition home or self-care (01) ==
LOC: HO.HOSX 12:04
PROVIDERS: PCP Internal Medicine; Visit Provider Orthopaedic Surgery
DX: M25.559 Pain in unspecified hip (principal); Z96.641 Presence of right artificial hip joint
CPT/HCPCS: 72170; 73501; 73552; 99212

== ENCOUNTER 2024-04-26 14:00 | Outpatient (RCR) | payer OTHER, SELFPAY ==
--- NOTE | 2024-03-22 16:15 | MHC.PT.EP ---
[facility] [place] Office [place] Office [place] Office [address] [place] [address] [phone] F: [phone] F: [phone] F: [phone] F: [phone] Physical Therapy Plan of Care Date of Evaluation: 03/22/24 Date of Surgery: 02/07/24 Diagnosis: R MARIO revision 02/07/24 (RL) Assessment: pt is a 63 y/o female presenting to physical therapy w/ referring diagnosis of R MARIO revision 02/07/24. Impairments include pain, decreased range of motion, decreased strength, impaired functional mobility, impaired postural awareness, and altered ambulation mechanics. pt is a good candidate for skilled PT due to age, potential remediation of impairments, typical disease/condition progression and prognosis, comorbidities, and motivation. pt would benefit from skilled PT intervention to provide a tailored strengthening and stretching exercise program, functional training, gait training, postural re-training, neuromuscular re-education, modalities as needed for pain, equipment safety demonstration. Frequency and Duration: The patient will be seen 2x/wk for 6 wks Short Term Goals: pt will be I w/ HEP to promote self-management of condition. pt will improve R hip flexion MMT by 1 grade to promote ease in leg lift for stair navigation. Mcc Goals: pt will report a statistically significant improvement in self-reported outcome measure, LEFI, to promote return to PLOF. pt will ambulate 8x50' w/o AD to promote ease in accessing bedroom and bathroom within her home. pt will ascend/descend 10 stairs using railing for safety using reciprocal pattern to promote ease in accessing basement for laundry. Treatment Plan: Modalities to reduce pain, spasms and effusion. Manual therapy to restore motion and function. Therapeutic exercise to improve strength and flexibility. Neuromuscular re-education for posture and balance. Therapeutic activities to return to functional activities of daily living. Electronically signed by: Kisha Harrell PT, DPT Please sign and return to therapist. Thank you for your referral.
--- NOTE | 2024-06-01 10:50 | MHC.PT.DC ---
[facility] [place] Office [place] Office [place] Office [address] [place] [address] [facility] [phone] F: [phone] F: [phone] F: [phone] F: [phone] Physical Therapy Discharge Report Diagnosis: R MARIO revision 02/07/24 (RL) Date of Surgery: 02/07/24 Date of Evaluation: 03/22/24 Date of Discharge: 06/01/24 Treatments to Date: 7 Cancellations to Date: 4 No Shows to Date: 2 Discharge Status: Visit Non-compliance Discharge Summary: The patient did not show for her last few scheduled appointments. She was having a difficulty time mentally accepting her current functional status and the setbacks she had post-operatively. She required frequent motivation and encouragement to participate but this was improving when she was last seen. She has not called to schedule any additional appointments and is discharged for non-compliance. Electronically signed by: Kisha Harrell PT, DPT Please sign and return to therapist. Thank you for your referral.
== END 2024-06-01 10:50 | disposition home or self-care (01) ==
LOC: HO.PT 14:00
PROVIDERS: PCP Internal Medicine; Visit Provider Physician Assistant
DX: Z47.1 Aftercare following joint replacement surgery (principal); Z96.641 Presence of right artificial hip joint
CPT/HCPCS: 97110; 97112; 97162

== ENCOUNTER 2024-05-14 16:47 | Outpatient (AMB) | payer OTHER, SELFPAY ==
--- NOTE | 2024-05-14 16:50 | A.OFFPC_ITS ---
Vital Signs 05/14/24 16:51 Height 5 ft 2 in Weight 112 lb BMI 20.5 BP 130/82 Blood Pressure Location Lt brachial Position Sitting Pulse 75 Pulse Source Pulse Oximeter Pulse Oximetry (%) 95 Oxygen Delivery Method Room Air Intake Visit Reasons: OA Milking Worker Required: No Accompanied by: Self / Same As Patient Allergies codeine Adverse Reaction (Intermediate, Verified 05/14/24 17:08) nausea and vomitting Medication List - Last Reconciled 05/14/24 by Juan Carpenter MD acetaminophen 650 mg (2 x 325 mg) PO Q6H PRN 30 days blood pressure monitor As directed celecoxib 200 mg PO BID 30 days [Grab Bar As directed] inulin (Fiber Gummies) 2 grams PO DAILY [Leg Technology Support Analyst As directed] orsngygo-rih-xqal-FA-vit K-lut 4 mg iron-200 mcg-25 mcg (Centrum Minis Women 50 Plus) 1 tab PO DAILY ondansetron HCl 4 mg PO Q6H PRN 7 days oxycodone 5 mg PO ONCE PRN 7 days [Raised toilet seat As directed] [SHOWER CHAIR As directed] [stackable bath steps As directed] walker Folding Front wheeled walker Tobacco use date assessed: 05/14/24 Fall risk assessment: No Falls in past year Last assessed Fall Risk: 05/14/24 Dental Screening Dental Screen Date: 05/14/24 Did you have a dental visit in the last 12 months?: Yes Did you have a dental problem in the last 6 months where you did not have access to dental care?: No Was dental information given to patient?: Patient has dentist KENDELL WOOTEN HPI Details Patient comes in today for her follow up visit She underwent total right hip arthroplasty back in December (2023) and subsequent revision arthroplasty of the same hip in early February 2024 States that she is still experiencing increased pain in her right hip and is currently still going to physical therapy She has also been experiencing increased pain in her right knee for a couple of years now and thinks that orthopedics plans to do a right knee arthroplasty next year if her knee symptoms persist, which patient is hoping to avoid States that she has gone back to smoking again recently and she would like to get Rx for nicotine patches to help her quit smoking States that she feels okay otherwise She denies any headaches or dizziness Denies any chest pains, no SOB No nausea/vomiting, no abdominal pain No change in bowel habits noted [facility] Medical History (Updated 10/22/24 @ 13:58 by Juan Carpenter MD) Degenerative joint disease of right knee Rheumatoid arthritis Arthritis Bowel obstruction Swelling of lower extremity Elevated cholesterol History of opiate therapy Vitamin D deficiency Pure hypercholesterolemia Primary osteoarthritis of right hip Depression Osteoporosis Knee locking Osteoarthritis of hip Surgical History History of revision of total replacement of right hip joint History of total right hip replacement (12/13/23) Hx of arthroscopy of right knee History of total left hip arthroplasty Hx of bilateral cataract extraction Hx of colonoscopy Hx of section H/O left wrist surgery Family History Father Cancer Mother Bone cancer Osteoporosis Social History Household Members: Children Housing: House Are you a primary healthcare marketer to a significant other at home: No Do you presently have visiting nurse or other home services: No Alcohol intake: current Alcohol intake frequency: does not drink Patient Tobacco Use Status: Former Tobacco user Tobacco use type: Cigarette e-Cigarette/Vaping Use: Never Used Second Hand Smoke Exposure: No Substance Use Type: Prescription Drugs service: No Current occupational status: disabled Current occupation: rt handed Cognitive needs: No Hearing needs: No Vision needs: No Questionnaire PHQ-9 Over the last 2 weeks, how often have you been bothered by any of the following problems? 1. Little interest or pleasure in doing things: not at all 2. Feeling down, depressed, or hopeless: not at all 3. Trouble falling or staying asleep, or sleeping too much: not at all 4. Feeling tired or having little energy: not at all 5. Poor appetite or overeating: not at all 6. Feeling bad about yourself - or that you are a failure or have let yourself or your family down: not at all 7. Trouble concentrating on things, such as reading the newspaper or watching television: not at all 8. Moving or speaking so slowly that other people could have noticed. Or the opposite - being so fidgety or restless that you have been moving around a lot more than usual: not at all 9. Thoughts that you would be better off or of hurting yourself in some way: not at all Total score: 0 Depression Screening Interpretation: Negative Depression Screening Done: Yes 00710 - PHQ-9 Billing: Yes Source: Developed by Drs. Kobe Maldonado, Rose James, Du Garcia and colleagues, with an educational avis from [employer]. Thrive Questionnaire Date Thrive assessed: 05/14/24 I am a: Patient What is your living situation today?: I have a steady place to live Within the past 12 months, did the food you bought not last and you didn't have the money to get more?: Never true Within the past 12 months, did you worry whether your food would run out before you got money to buy more?: Never true Do you have trouble paying for medicines?: No Do you have trouble getting transportation to medical appointments?: No Do you have trouble paying your heating and electricity bill?: No Do you have trouble taking care of your child, family member or friend?: No Do you have trouble with day-to-day activities such as bathing, preparing meals, shopping, managing finances, etc.?: No Are you currently unemployed and looking for a job?: No Are you interested in more education?: No Please select the resources that you would like help with: None Currently or been in a relationship where the following occur: No concerns reported THRIVE Score: 0 AUDIT C Alcohol Use Questionnaire (AUDIT-C) 1. How often do you have a drink containing alcohol?: Never 3. How often do you have six or more drinks on one occasion?: Never Total Score: 0 Score Reviewed/Action Taken: Yes YANICK-7 AMB Questionnaire YANICK-7 Date YANICK - 7 assessed: 05/14/24 Feeling nervous, anxious, or on edge: 0 = Not at all Not being able to stop or control worryin = Not at all Worrying too much about different things: 0 = Not at all Trouble relaxin = Not at all Being so restless that it is hard to sit still: 0 = Not at all Becoming easily annoyed or irritable: 0 = Not at all Feeling afraid as if something awful might happen: 0 = Not at all Total YANICK-7 score (0-4 normal; 5-9 mild; 10-14 moderate; 15-21 severe): 0 Source: Developed by Drs. Kobe Maldonado, Rose James, Du Garcia and colleagues, with an educational avis from [employer]. Review of Systems Const Denies chills, Reports fatigue, Denies fever(s) and Denies headache(s) ENT Denies dysphagia, Denies dizziness, Denies otalgia, Denies headache(s), Denies neck pain, Denies odynophagia and Denies sore throat Card Denies chest pain, Denies rapid heart rate, Denies irregular heart rhythm, Denies palpitations and Denies dyspnea Resp Denies chest congestion, Denies cough and Denies dyspnea GI Denies abdominal pain, Denies constipation, Denies dysphagia, Denies diarrhea, Denies nausea, Denies odynophagia and Denies vomiting Denies difficulty voiding, Denies nocturia, Denies dysuria and Denies urinary urgency Musc Denies back pain, Reports arthralgias (right knee and right hip - see HPI) and Denies neck pain Skin/Breast Denies rash Neuro Denies dizziness and Denies headache(s) Endo Reports fatigue and Denies palpitations Physical exam (Primary Care) Vital Signs: Last Vital Signs Pulse 75 05/14/24 16:51 BP 130/82 05/14/24 16:51 Pulse Ox 95 05/14/24 16:51 Oxygen Delivery Method Room Air 05/14/24 16:51 BMI result Body Mass Index 20.5 Tobacco/Smoking Status: Tobacco use Status Tobacco use date assessed 05/14/24 05/14/24 16:58 Patient Tobacco Use Status Former Tobacco user 05/14/24 16:58 Tobacco use type Cigarette 05/14/24 16:58 e-Cigarette/Vaping Use Never Used 05/14/24 16:58 PHQ-9: PHQ-9 Score PHQ-9: Total score 0 10/22/24 13:27 Depression Screening Interpretation: Negative Thrive Assessment: Date of Thrive Assessment Date Thrive assessed 05/14/24 05/14/24 16:58 Currently or been in a relationship where the following occur: No concerns reported Const General: no acute distress and alert HENMT Ears: TM's normal bilaterally and EAC's normal Throat: Yes posterior oropharynx normal and Yes tonsils normal (no TP congestion) Neck Neck: Yes supple and No lymphadenopathy Thyroid: Thyroid normal Resp Auscultation: clear to auscultation bilaterally, no rales and no wheezes Cardio Rate: regular rate Rhythm: regular rhythm Heart sounds: no murmurs GI Palpation (GI): Soft to palpation and nontender Auscultation: normal bowel sounds General: Yes no CVA tenderness Back/Spine/Pelvis Back: no CVA tenderness Thoracic/Lumbar Spine: No lumbar spinal tenderness Skin Rashes: no rashes Extrem General: Yes no clubbing, cyanosis or edema Right lower extremity: hip/thigh Details: tenderness Location: of the hip and knee Details: tenderness; no swelling Coding Level of Care Code Est Pt Level 4 (48266) Diagnoses Primary osteoarthritis of right hip M16.11 Osteoarthritis type: primary Primary osteoarthritis of right knee M17.11 Osteoarthritis type: primary Pure hypercholesterolemia E78.00 Mild intermittent asthma without complication J45.20 Asthma severity: mild Asthma persistence: intermittent Asthma complication type: uncomplicated Anemia, unspecified type D64.9 Anemia type: unspecified type Vitamin D deficiency E55.9 Smoker F17.200 Assessment & Plan Assessment & Plan (1) Osteoarthritis of right hip: Code(s): M16.11 - Unilateral primary osteoarthritis, right hip Category: Medical Qualifiers: Osteoarthritis type: primary Qualified Code(s): M16.11 - Unilateral primary osteoarthritis, right hip Plan: S/P total hip arthroplasty in December 2023, followed by revision arthroplasty in February 2024 due to a fracture of the medial calcar with stem subsidence Her revision arthroplasty was done with a long uncemented stem under general anesthesia to address her previous issue She is currently still going to physical therapy or her hip as well as her knee Follow up with orthopedics as scheduled (2) Degenerative joint disease of right knee: Code(s): M17.11 - Unilateral primary osteoarthritis, right knee Category: Medical Qualifiers: Osteoarthritis type: primary Qualified Code(s): M17.11 - Unilateral primary osteoarthritis, right knee Plan: She is currently going to physical therapy for her right knee States that orthopedics is planning a TKA of the knee next year Follow up with orthopedics as scheduled (3) Pure hypercholesterolemia: Code(s): E78.00 - Pure hypercholesterolemia, unspecified Category: Medical Plan: Reinforced low cholesterol diet Will recheck her labs and fasting lipids in 6 months for follow up (4) Asthma: Code(s): J45.909 - Unspecified asthma, uncomplicated Category: Medical Qualifiers: Asthma severity: mild Asthma persistence: intermittent Asthma complication type: uncomplicated Qualified Code(s): J45.20 - Mild intermittent asthma, uncomplicated Plan: Her asthma currently remains stable Patient used to take Montelukast 10 mg QD for her asthma and hardly had to use any rescue inhalers in the past (5) Anemia: Code(s): D64.9 - Anemia, unspecified Category: Medical Qualifiers: Anemia type: unspecified type Qualified Code(s): D64.9 - Anemia, unspecified Plan: Her H/H last checked on 02/22/2024 were only slightly low at 11.9/37.2 respectively She has no Hx of anemia so this is likely postsurgical, due to acute bleeding Will have her recheck her CBC in 6 months for follow up (6) Vitamin D deficiency: Code(s): E55.9 - Vitamin D deficiency, unspecified Category: Medical Plan: Will also recheck her Vitamin D level in 6 months for follow up (7) Smoker: Code(s): F17.200 - Nicotine dependence, unspecified, uncomplicated Category: Social Hx Plan: Patient is counseled again on smoking cessation Per request, will start her again on Nicotine patches to help her quit smoking Plan To return in 6 months for her next annual physical examination Orders: Orders Comprehensive [place]. Panel Fast 6 Months E78.00 - Pure hypercholesterolemia, unspecified, Z00.00 - Encounter for general adult medical examination without abnormal findings Complete Blood Count Auto Diff 6 Months D64.9 - Anemia, unspecified, Z00.00 - Encounter for general adult medical examination without abnormal findings Lipid Panel 6 Months E78.00 - Pure hypercholesterolemia, unspecified, Z00.00 - Encounter for general adult medical examination without abnormal findings TSH reflex Free T4 6 Months E78.00 - Pure hypercholesterolemia, unspecified, Z00.00 - Encounter for general adult medical examination without abnormal findings UA CC w/rflx Micro + Cult 6 Months R30.0 - Dysuria, Z00.00 - Encounter for general adult medical examination without abnormal findings Vitamin D 25-OH Total 6 Months E55.9 - Vitamin D deficiency, unspecified, Z00.00 - Encounter for general adult medical examination without abnormal findings Medications: New nicotine 1 patch transdermal Q24H 28 ea 5RF 28 days F17.200 - Nicotine dep endence, unspecified, uncomplicated nicotine 1 patch transdermal DAILY 7 ea 0RF 7 days F17.200 - Nicotine dependence, unspecified, uncomplicated
[2024-05-14 16:51] VITALS: BP 130/82; PULSE 75; O2SAT 95; BMI 20.5
== END 2024-05-14 17:19 | disposition home or self-care (01) ==
PROVIDERS: PCP Internal Medicine; Visit Provider Internal Medicine
DX: M16.11 Unilateral primary osteoarthritis, right hip (principal); M17.11 Unilateral primary osteoarthritis, right knee; E78.00 Pure hypercholesterolemia, unspecified; J45.20 Mild intermittent asthma, uncomplicated; D64.9 Anemia, unspecified; E55.9 Vitamin D deficiency, unspecified; F17.200 Nicotine dependence, unspecified, uncomplicated

== ENCOUNTER → 2024-05-14 16:47 | Outpatient (BNVA) | payer OTHER, SELFPAY | PROVIDERS: PCP Internal Medicine; Visit Provider Internal Medicine ==

== ENCOUNTER 2024-11-13 07:44 | Outpatient (REF) | payer OTHER, SELFPAY ==
--- OUTSIDE RECORDS SUMMARY | 2024-11-13 07:52 | XMS_ITS | Clinical Summary ---
Author Organization [employer] [facility] Address [address] [place] [address] Care Team Providers Care Assembler Camper Name Role Phone Juan Carpenter MD Primary Care Provider Surgical History Surgery Date Site/Laterality Comments CATARACT EXTRACTION PROCEDURE: HISTORICAL CATARACT REMOVAL TONSILLECTOMY PROCEDURE: HISTORICAL TONSILLECTOMY WRIST SURGERY PROCEDURE: HISTORICAL WRIST SURGERY; COMMENT: left for fracture COLONOSCOPY 09/29/10 PROCEDURE: HISTORICAL COLONOSCOPY; COMMENT: normal; repeat in ten years OTHER SURGICAL HISTORY 06/22 PROCEDURE: [place] ARTHRP ACETBLR/PROX FEM PROSTC AGRFT/ALGRFT; COMMENT: left Medical History Medical History Date Comments Anxiety DX:Anxiety Cataract DX:Cataract Iron deficiency anemia DX:Iron d eficiency anemia; COMMENT: uses supplemental iron around menstrual cycle PMDD (premenstrual dysphoric disorder) 09/23/2010 DX:PMDD (premenstrual dysphoric disorder) Allergic rhinitis, cause unspecified 11/03/2009 DX:Allergic rhinitis, cause unspecified Wrist fracture, left - DX:Wrist fr acture, left; COMMENT: needed a pin DJD (degenerative joint disease) DX:DJD (degenerative joint disease) Carpal tunnel syndrome 04/03/2013 DX:Carpal tunnel syndrome; COMMENT: 2012 EMG/NCT: mild on right Rotator cuff tear 05/14/2013 DX:Rotator cuf f tear; COMMENT: Right, on MRI 2012 - not felt repairable Osteoarthritis of both hips 04/01/2015 DX:O steoarthritis of both hips; COMMENT: L>R; sugery being considered 02/19 Osteoarthritis of both hips 04/01/2015 DX:O steoarthritis of both hips Family History Medical History Relation Name Comments Arthritis Father Breast cancer Father's side cousin Hypertension Sister 1 Colon cancer Neg Hx Ovarian cancer Neg Hx Relation Name Status Comments Father (Age 46) terminal c ancer ? lymphnodes Father's side Maternal Grandfather Maternal Grandmother Mother (Age 82) cancer of bones, osteoparosis Paternal Grandfather Paternal Grandmother Sister 1 Alive HTN Sister 2 Alive healthy Son Alive age 11 healthy Social History Tobacco Use Types Packs/Day Years Used Date Smoking Tobacco: Former Cigarettes Q uit: 08/08/1984 Smokeless Tobacco: Never Alcohol Use Standard Drinks/Week Comments Yes 0 (1 standard drink = 0.6 oz pur e alcohol) Comments Unknown Sex and Gender Information Value Date Recorded Sex Assigned at Not on file Legal Sex Female 5:03 AM EST Gender Identity Not on file Sexual Orientation Not on file Obstetrics History Plan of Treatment Health Maintenance Due Date Last Done Comments Breast Cancer Screening 1960 Cervical Cancer Screening: P ap Smear 12/17/1980 Pneumococcal Vaccine: 50+ Years (1 of 1 - PCV) 12/17/2009 Zoster Vaccines (1 of 2) 12/17/2009 DTaP,Tdap,and Td Vaccines (2 - Td or Tdap) 09/04/2020 09/04/2010 COVID-19 Vaccine ( - 2023-2 5 season) 2024 Influenza Vaccine (#1) 2024 2, 05/07/2011, 05/11/2010 RSV Immunization Adult Patients (1 - 1-dose 75+ series) 12/17/2034 HIB Vaccines Aged Out No longer eligi ble based on patient's age to complete this topic HPV Vaccines Aged Out No longer eligi ble based on patient's age to complete this topic Hepatitis A Vaccines Aged Out No long er eligible based on patient's age to complete this topic Hepatitis B Vaccines Aged Out No long er eligible based on patient's age to complete this topic IPV Vaccines Aged Out No longer eligi ble based on patient's age to complete this topic MMR Vaccines Aged Out No longer eligi ble based on patient's age to complete this topic Meningococcal ACWY Vaccine Aged Out N o longer eligible based on patient's age to complete this topic Meningococcal B Vaccine Aged Out No l onger eligible based on patient's age to complete this topic Pneumococcal Vaccine: Pediatrics (0 to 5 Years) and At-Risk Patients (6 to 64 Years) Aged Out No longer eligible b ased on patient's age to complete this topic RSV Immunization Patients Under 20 months Aged Out No longer eligible b ased on patient's age to complete this topic Varicella Vaccines Aged Out No longer eligible based on patient's age to complete this topic Care Teams Assembler Camper Relationship Specialty Start Date End Date Juan Carpenter MD [address] [place] [address] [address] [place] PCP - General Internal Medicine 10/02/12
[2024-11-13 08:01] LABS: MANUAL DIFF FLAG NO
[2024-11-13 08:34] LABS: Basophils Absolute Auto 0.1 X10*3/uL (0.0-0.2); Basophils Percent Auto 0.7 % (0-2); Eosinophils Absolute Auto 0.4 X10*3/uL (0.0-0.4); Eosinophils Percent Auto 5.4 % (0-4); Hematocrit 39.3 % (37.0-47.0); Hemoglobin 13.2 g/dl (12.0-16.0); Imm Gran Abs Auto 0.02 X10*3/uL (0.00-0.03); Imm Gran Pct Auto 0.3 % (0.0-0.4); Lymphocytes Absolute Auto 1.3 X10*3/uL (1.2-4.9); Lymphocytes Percent Auto 17.9 % (20-40); Mean Corpuscular HGB Conc 33.6 g/dl (31.0-35.0); Mean Corpuscular Hemoglobin 30.3 pg (27.0-33.0); Mean Corpuscular Volume 90.1 fL (80.0-98.0); Mean Platelet Volume 10.1 fL (9.4-12.3); Monocytes Absolute Auto 0.6 X10*3/uL (0.1-1.2); Monocytes Percent Auto 8.2 % (2-11); Neutrophils Percent Auto 67.5 % (45-73); Platelet Count 176 X10*3/uL (160-400); Red Blood Count 4.36 X10*6/uL (4.20-5.50); Red Cell Distribution Width 13.8 % (11.0-16.0); White Blood Count 7.4 X10*3/uL (4.8-10.8)
[2024-11-13 08:35] LABS: Appearance Urine Clear; Color Urine Yellow; Glucose Urine UA Negative (Negative); Leukocyte Esterase Urine Negative (Negative); Nitrite Urine Negative (Negative); PH 6.5 (5.0-9.0); Urine Blood Negative (Negative); Urine Ketones Negative (Negative); Urine Protein Negative (Neg-Trace)
[2024-11-13 09:15] LABS: Alanine Aminotransferase 16 U/L (0-31); Albumin Level 4.1 g/dL (3.5-5.0); Alkaline Phosphatase 92 U/L (39-117); Anion Gap 12 (12-20); Aspartate Amino Transferase 30 U/L (5-31); Bilirubin Total 0.3 mg/dL (0.0-1.0); Blood Urea Nitrogen 20 mg/dL (9-16); Calcium 9.5 mg/dL (8.4-10.2); Carbon Dioxide 26 mmol/L (22-29); Chloride 107 mmol/L (96-108); Cholesterol 156 mg/dL (<200); Estimated Glomerular Filt Rate > 60; Glucose Fasting 83 mg/dL (60-99); HDL Cholesterol 50 mg/dL (>40); LDL Cholesterol Calculated 95 mg/dL (<100); Potassium 4.5 mmol/L (3.3-5.1); Sodium 140 mmol/L (135-145); Total Protein 7.2 g/dL (6.5-8.0); Triglycerides 57 mg/dL (<150)
[2024-11-13 09:30] LABS: TSH reflex Free T4 3.27 uIU/mL (0.32-4.0); Vitamin D 25-OH Total 24.9 ng/mL (>30)
== END 2024-11-13 07:45 | disposition home or self-care (01) ==
LOC: HO.LAB 07:44
PROVIDERS: PCP Internal Medicine; Visit Provider Internal Medicine
DX: Z00.00 Encounter for general adult medical examination without abnormal findings (principal); E78.00 Pure hypercholesterolemia, unspecified; J45.20 Mild intermittent asthma, uncomplicated; D64.9 Anemia, unspecified; R53.82 Chronic fatigue, unspecified; E55.9 Vitamin D deficiency, unspecified; M19.041 Primary osteoarthritis, right hand; M19.042 Primary osteoarthritis, left hand; M16.11 Unilateral primary osteoarthritis, right hip; M17.11 Unilateral primary osteoarthritis, right knee; L81.9 Disorder of pigmentation, unspecified; F32.81 Premenstrual dysphoric disorder; R30.0 Dysuria; F17.200 Nicotine dependence, unspecified, uncomplicated
CPT/HCPCS: 36415; 80053; 80061; 81003; 82306; 84443; 85025; 96127; 99396

== ENCOUNTER 2024-11-13 17:17 | Outpatient (AMB) | payer OTHER, SELFPAY ==
[2024-11-13 17:21] VITALS: BP 126/64; PULSE 67; RESP 16; TEMP 36.4; O2SAT 97; BMI 21.3
--- NOTE | 2024-11-13 17:21 | A.OFFPC_ITS ---
Vital Signs 11/13/24 17:21 Height 5 ft 2 in Weight 116 lb 6.4 oz BMI 21.3 BP 126/64 Blood Pressure Location Lt brachial Position Sitting Respiration 16 Pulse 67 Pulse Source Pulse Oximeter Temp 97.5 F Temp Source Temporal Artery Scan Pulse Oximetry (%) 97 Oxygen Delivery Method Room Air Intake Visit Reasons: annual exam/due for mammo Quiller Operator Required: No Accompanied by: Self / Same As Patient Allergies codeine Adverse Reaction (Intermediate, Verified 11/13/24 17:38) nausea and vomitting Medication List - Last Reconciled 11/13/24 by Juan Carpenter MD blood pressure monitor As directed celecoxib 200 mg PO BID 30 days diclofenac sodium 1% 2 grams topical QID [Grab Bar As directed] [Leg Compensation Director As directed] [id number]-[id number]-[id number]-vit K-lut 4 mg iron-200 mcg-25 mcg (Centrum Minis Women 50 Plus) 1 tab PO DAILY naproxen 500 mg PO BID [Raised toilet seat As directed] [SHOWER CHAIR As directed] [stackable bath steps As directed] walker Folding Front wheeled walker Tobacco use date assessed: 11/13/24 Fall risk assessment: No Falls in past year Last assessed Fall Risk: 11/13/24 Dental Screening Dental Screen Date: 11/13/24 Did you have a dental visit in the last 12 months?: Yes Did you have a dental problem in the last 6 months where you did not have access to dental care?: No Was dental information given to patient?: Patient has dentist HPI annual exam/due for mammo HPI Details Patient comes in today for her annual physical examination States that she has been experiencing frequent increased pain in both hands/fingers for the past few months now Notes that her symptoms are usually worse in the morning and she has noticed her hands and fingers are swollen at times Adds that she has noticed some on and off mild swelling as well as occasional slight discoloration of the skin on some areas of her right thigh and leg - feels that this started a few months after she had revision surgery of her right hip replacement done last February 2024 She denies any increased pain in her right hip or right lower extremity She also reports experiencing increased fatigue all day long for the past few months now Feels that she sleeps well at night and other than having to wake up a couple of times in the middle of the night to use the bathroom, states that she sleeps mostly through the night without any problems but finds herself feeling tired already as soon as she wakes up in the morning States that she can doze off or fall asleep at any time of the day when she is idle or not really doing anything or talking to someone and is not sure why she is feeling this tired all the time lately States that she feels okay otherwise She denies any headaches or dizziness Denies any chest pains, no shortness of breath No nausea/vomiting, no abdominal pain No change in bowel habits noted She denies any acute urinary symptoms She had her follow up labs done earlier today - to discuss her results She is behind on all of her cancer screenings by a few years and will need to get all of these updated [facility] Medical History (Updated 11/14/24 @ 04:58 by Juan Carpenter MD) Degenerative joint disease of right knee Rheumatoid arthritis Arthritis Bowel obstruction Swelling of lower extremity Elevated cholesterol History of opiate therapy Vitamin D deficiency Pure hypercholesterolemia Primary osteoarthritis of right hip Depression Osteoporosis Knee locking Osteoarthritis of hip Surgical History (Updated 11/13/24 @ 17:40 by Juan Carpenter MD) History of revision of total replacement of right hip joint History of total right hip replacement (12/13/23) Hx of arthroscopy of right knee History of total left hip arthroplasty Hx of bilateral cataract extraction Hx of colonoscopy Hx of section H/O left wrist surgery Family History Father Cancer Mother Bone cancer Osteoporosis Social History Household Members: Children Housing: House Are you a primary healthcare economics manager to a significant other at home: No Do you presently have visiting nurse or other home services: No Alcohol intake: current Alcohol intake frequency: does not drink Patient Tobacco Use Status: Current everyday Tobacco user Tobacco use type: Cigarette Cigarette Packs Per Day: 0.5 Cigarettes Per Day: 10 e-Cigarette/Vaping Use: Never Used Second Hand Smoke Exposure: No Substance Use Type: Prescription Drugs service: No Current occupational status: disabled Current occupation: rt handed Cognitive needs: No Hearing needs: No Vision needs: Yes (Glasses) Questionnaire PHQ-9 Over the last 2 weeks, how often have you been bothered by any of the following problems? 1. Little interest or pleasure in doing things: more than half the days 2. Feeling down, depressed, or hopeless: not at all 3. Trouble falling or staying asleep, or sleeping too much: nearly every day 4. Feeling tired or having little energy: nearly every day 5. Poor appetite or overeating: not at all 6. Feeling bad about yourself - or that you are a failure or have let yourself or your family down: not at all 7. Trouble concentrating on things, such as reading the newspaper or watching television: not at all 8. Moving or speaking so slowly that other people could have noticed. Or the opposite - being so fidgety or restless that you have been moving around a lot more than usual: not at all 9. Thoughts that you would be better off or of hurting yourself in some way: not at all Total score: 8 Depression Screening Interpretation: Positive Depression Screening Follow-up: Existing condition, Community Mental Health Worker F/U and Declines treatment Depression Screening Done: Yes 93602 - PHQ-9 Billing: Yes Source: Developed by Drs. Kobe Maldonado, Rose James, Du Garcia and colleagues, with an educational avis from [employer]. Thrive Questionnaire Date Thrive assessed: 11/13/24 I am a: Patient What is your living situation today?: I have a steady place to live Within the past 12 months, did the food you bought not last and you didn't have the money to get more?: Never true Within the past 12 months, did you worry whether your food would run out before you got money to buy more?: Sometimes True Do you have trouble paying for medicines?: No Do you have trouble getting transportation to medical appointments?: No Do you have trouble paying your heating and electricity bill?: Yes Do you have trouble taking care of your child, family member or friend?: No Do you have trouble with day-to-day activities such as bathing, preparing meals, shopping, managing finances, etc.?: Yes Are you currently unemployed and looking for a job?: No Are you interested in more education?: No Please select the resources that you would like help with: None Currently or been in a relationship where the following occur: No concerns reported THRIVE Score: 2 AUDIT C Alcohol Use Questionnaire (AUDIT-C) 1. How often do you have a drink containing alcohol?: Never 3. How often do you have six or more drinks on one occasion?: Never Total Score: 0 Score Reviewed/Action Taken: Yes YANICK-7 AMB Questionnaire YANICK-7 Date YANICK - 7 assessed: 11/13/24 Feeling nervous, anxious, or on edge: 0 = Not at all Not being able to stop or control worryin = Not at all Worrying too much about different things: 0 = Not at all Trouble relaxin = Not at all Being so restless that it is hard to sit still: 0 = Not at all Becoming easily annoyed or irritable: 0 = Not at all Feeling afraid as if something awful might happen: 0 = Not at all Total YANICK-7 score (0-4 normal; 5-9 mild; 10-14 moderate; 15-21 severe): 0 Source: Developed by Drs. Kobe Maldonado, Rose James, Du Garcia and colleagues, with an educational avis from [employer]. YANICK-7 Assessment Billing YANICK-7 Assessment Tool: YANICK-7 Assessment 62907 Review of Systems Const Denies chills, Reports daytime sleepiness, Denies difficulty sleeping, Reports fatigue (increased - see HPI for details), Denies fever(s), Denies headache(s) a nd Denies malaise Eyes Denies blurry vision, Denies change in vision, Denies irritation and Denies itchy eyes ENT Denies dysphagia, Denies dizziness, Denies otalgia, Denies headache(s), Denies nasal congestion, Denies neck pain, Denies odynophagia, Denies sinus pain and Denies sore throat Card Denies chest pain, Denies rapid heart rate, Denies irregular heart rhythm, Denies palpitations and Denies dyspnea Resp Denies chest congestion, Denies cough, Denies dyspnea and Denies wheezing GI Denies abdominal pain, Denies bloating, Denies constipation, Denies dysphagia, Denies heartburn, Denies diarrhea, Denies nausea, Denies odynophagia and Denies vomiting Denies hematuria, Denies urinary frequency, Denies dysuria, Denies urinary incontinence and Denies urinary urgency Musc Denies back pain, Reports arthralgias (in both hands/fingers), Reports joint swelling (on and off over the fingers on both hands - see HPI), Denies muscle weakness and Denies neck pain Skin/Breast Denies breast pain, Denies breast mass, Reports change in pigmentation (on and off skin discoloration on some areas on her right lower extremity), Denies lesions, Denies rash and Denies unusual bruising Neuro Denies dizziness, Denies headache(s) and Denies paresthesias Psych Denies anxiety and Reports depression (mild) Endo Reports fatigue (increased - see HPI for details) and Denies palpitations Chadwick/Lymph Denies easy bruising Aller/Immun Denies itchy eyes and Denies wheezing Physical exam (Primary Care) Vital Signs: Last Vital Signs Temp 97.5 F 11/13/24 17:21 Pulse 67 11/13/24 17:21 Resp 16 11/13/24 17:21 BP 126/64 11/13/24 17:21 Pulse Ox 97 11/13/24 17:21 Oxygen Delivery Method Room Air 11/13/24 17:21 BMI result Body Mass Index 21.3 Tobacco/Smoking Status: Tobacco use Status Tobacco use date assessed 11/13/24 11/13/24 17:31 Patient Tobacco Use Status Current everyday Tobacco 11/13/24 17:31 Tobacco use type Cigarette 11/13/24 17:31 e-Cigarette/Vaping Use Never Used 11/13/24 17:31 PHQ-9: PHQ-9 Score PHQ-9: Total score 8 11/13/24 22:24 Depression Screening Interpretation: Positive Depression Screening Follow-up: Existing condition, Community Mental Health Worker F/U and Declines treatment Thrive Assessment: Date of Thrive Assessment Date Thrive assessed 11/13/24 11/13/24 17:31 Currently or been in a relationship where the following occur: No concerns reported Const General: no acute distress, alert and awake Orientation/consciousness: patient oriented x3 HENMT Head: Yes normocephalic and Yes atraumatic Ears: external ears normal, TM's normal bilaterally and EAC's normal General nose exam: No nasal discharge present Face and sinus: Yes normal facial exam and Yes sinuses nontender Teeth and gingiva: dentition normal Throat: Yes posterior oropharynx normal and Yes tonsils normal (no TP congestion) Eyes Eyelids: Yes eyelids normal Conjunctivae: conjunctivae normal Pupils: Equal, round and reactive pupils present EOM: EOMs intact bilaterally Neck Neck: Yes supple and No lymphadenopathy Thyroid: Thyroid normal Resp Auscultation: clear to auscultation bilaterally, no rales and no wheezes Cardio Rate: regular rate Rhythm: regular rhythm Heart sounds: no murmurs GI Palpation (GI): Soft to palpation, nontender and No hepatosplenomegaly present Auscultation: normal bowel sounds General: Yes no CVA tenderness Back/Spine/Pelvis Back: no CVA tenderness Thoracic/Lumbar Spine: thoracic and lumbar spine normal to inspection Skin General skin exam: mottling (few scattered areas on the right lower extremity) Lesions: no lesions Rashes: no rashes Neuro General: patient oriented x3, moves all extremities, no focal motor deficits and CN's II-XI intact bilaterally Cranial nerves: Yes Equal, round and reactive pupils present Cognition (Neuro): normal cognition Gait exam (Neuro): Normal gait present Extrem Other: (+) mild tenderness on exam of fingers on both hands, with (+) prominence of the IP joints on several fingers General: Yes no clubbing, cyanosis or edema Results Reviewed Results Reviewed: Laboratory Tests 11/13/24 08:00 WBC 7.4 Hgb 13.2 Hct 39.3 Plt Count 176 D Sodium 140 Potassium 4.5 Creatinine 0.74 Estimated GFR > 60 Fasting Glucose 83 Calcium 9.5 D AST 30 ALT 16 Triglycerides 57 Cholesterol 156 LDL Cholesterol, Calc 95 HDL Cholesterol 50 25-OH Vitamin D Total 24.9 L TSH 3.27 Ur Specific [place] 1.020 Urine Protein Negative Urine Glucose (UA) Negative Urine Blood Negative Urine Nitrite Negative Ur Leukocyte Esterase Negative Coding Level of Care Code Est Pt Prev Care 40-64y(21307) Diagnoses Annual physical exam Z00.00 Pure hypercholesterolemia E78.00 Mild intermittent asthma without complication J45.20 Asthma severity: mild Asthma persistence: intermittent Asthma complication type: uncomplicated Anemia, unspecified type D64.9 Anemia type: unspecified type Chronic fatigue R53.82 Vitamin D deficiency E55.9 Arthritis of both hands M19.041; M19.042 Primary osteoarthritis of right hip M16.11 Osteoarthritis type: primary Primary osteoarthritis of right knee M17.11 Osteoarthritis type: primary Discoloration of skin of multiple sites of lower extremity L81.9 Premenstrual dysphoric disorder F32.81 Depression Type: premenstrual dysphoric disorder Smoker F17.200 Colon cancer screening Z12.11 Breast cancer screening by mammogram Z12.31 Cervical cancer screening Z12.4 Osteoporosis screening declined Z53.20 Additional Codes YANICK-7 Assessment Billing - YANICK-7 Assessment Tool: YANICK-7 Assessment 29804 ([id number]) PHQ-9 - 68692 - PHQ-9 Billing: Yes ([id number]) Assessment & Plan Assessment & Plan (1) Annual physical exam: Code(s): Z00.00 - Encounter for general adult medical examination without abnormal findings Category: Medical Plan: Results of her labs done earlier this morning reviewed and discussed with patient She is behind on all of her cancer screenings and these will be ordered today to help get her updated (2) Pure hypercholesterolemia: Code(s): E78.00 - Pure hypercholesterolemia, unspecified Category: Medical Plan: Her cholesterol levels are at goal on her labs done earlier today Reinforced low cholesterol diet (3) Asthma: Code(s): J45.909 - Unspecified asthma, uncomplicated Category: Medical Qualifiers: Asthma severity: mild Asthma persistence: intermittent Asthma complication type: uncomplicated Qualified Code(s): J45.20 - Mild intermittent asthma, uncomplicated Plan: Her asthma has been and remains well-controlled at present without any medications Patient used to take Montelukast 10 mg QD for her asthma and hardly had to use any rescue inhalers in the past (4) Anemia: Code(s): D64.9 - Anemia, unspecified Category: Medical Qualifiers: Anemia type: unspecified type Qualified Code(s): D64.9 - Anemia, unspecified Plan: Corrected on her labs done earlier today She has no Hx of anemia so her previous anemic state was likely postsurgical, due to acute bleeding (5) Chronic fatigue: Code(s): R53.82 - Chronic fatigue, unspecified Category: Medical Plan: Have advised patient that her current labs are mostly normal and they do not help provide any information as to why she has been feeling very tired and fatigued lately Based on the description of her symptoms, she does not appear to have CRISSY but she could have other possible issues related to sleeping (PLMD, narcolepsy, etc) Will refer her to Sleep Medicine for further evaluation and recommendations (6) Vitamin D deficiency: Code(s): E55.9 - Vitamin D deficiency, unspecified Category: Medical Plan: She is advised that her vitamin D level is still low on her recent labs Will start her back on Vitamin D3 2000 units QD (7) Arthritis of both hands: Code(s): M19.041 - Primary osteoarthritis, right hand; M19.042 - Primary osteoarthritis, left hand Category: Medical Plan: Will send patient for x-rays of both hands for further evaluation Will also send her for some additional labs for further evaluation - also to r/o possible RA or inflammatory arthropathy (8) Osteoarthritis of right hip: Code(s): M16.11 - Unilateral primary osteoarthritis, right hip Category: Medical Qualifiers: Osteoarthritis type: primary Qualified Code(s): M16.11 - Unilateral primary osteoarthritis, right hip Plan: S/P total hip arthroplasty in December 2023, followed by revision arthroplasty in February 2024 due to a fracture of the medial calcar with stem subsidence Her revision arthroplasty was done with a long uncemented stem under general anesthesia to address her previous issue She underwent and completed physical therapy on her right hip as well as her right knee, with (+) improvement of her symptoms since; she currently denies any significant pain in her right hip and is ambulating and moving around easily without any discomfort at all Follow up with orthopedics as scheduled (9) Degenerative joint disease of right knee: Code(s): M17.11 - Unilateral primary osteoarthritis, right knee Category: Medical Qualifiers: Osteoarthritis type: primary Qualified Code(s): M17.11 - Unilateral primary osteoarthritis, right knee Plan: She also completed physical therapy for her right knee, with some improvement of her symptoms States that orthopedics is planning a TKA of the knee soon Follow up with orthopedics as scheduled (10) Discoloration of skin of multiple sites of lower extremity: Code(s): L81.9 - Disorder of pigmentation, unspecified Category: Medical Plan: Her right lower extremity exam today is normal Have advised patient that the on and off skin discoloration on her right lower extremity that she has been noticing over the past few months are likely related to her right hip surgeries but these appear to be mostly minor and more of a cosmetic issue so no further testing or intervention is needed at this time Have advised patient to reach out to us if her leg symptoms get worse or she starts to experience any increasing pain, discomfort or swelling of her right lower extremity (11) Depression: Comment: used to take Duloxetine in the past - had more of PMDD Code(s): F32.9 - Major depressive disorder, single episode, unspecified Category: Medical Qualifiers: Depression Type: premenstrual dysphoric disorder Qualified Code(s): F32.81 - Premenstrual dysphoric disorder Plan: Patient used to take Duloxetine in the past but states that she feels okay at present and does not wish to take anything else for this condition at this time States that she will let us know if her symptoms are getting worse and she needs help (12) Smoker: Code(s): F17.200 - Nicotine dependence, unspecified, uncomplicated Category: Social Hx Plan: Patient is counseled again on complete smoking cessation She has been prescribed nicotine patches in the past to help her quit smoking and she is advised that she can call again for the Rx at any time if necessary (13) Colon cancer screening: Code(s): Z12.11 - Encounter for screening for malignant neoplasm of colon Category: Medical Plan: She is past due on her colon cancer screening - last had colonoscopy done in 2011 Will refer her to GI for repeat colonoscopy (14) Breast cancer screening by mammogram: Code(s): Z12.31 - Encounter for screening mammogram for malignant neoplasm of breast Category: Medical Plan: Patient states that she has not had her mammogram done in a few years now Will send her for her annual mammogram [facility] (15) Cervical cancer screening: Code(s): Z12.4 - Encounter for screening for malignant neoplasm of cervix Category: Medical Plan: Will also refer her to OB-Chief Counsel to get her yearly gynecology exam and pap smear updated - she has not had these done in a few years now (16) Osteoporosis screening declined: Code(s): Z53.20 - Procedure and treatment not carried out because of patient's decision for unspecified reasons Category: Medical Plan: Will also send patient for BMD for osteoporosis screening Plan Follow up in 4 months Orders: Orders SONAL Reflex Titer and Pattern 11/13/24 M19.041 - Primary osteoarthritis, right hand, M19.042 - Primary osteoarthritis, left hand XR Hand Trevor 2V 11/13/24 M19.041 - Primary osteoarthritis, right hand, M19.042 - Primary osteoarthritis, left hand MM tomosynthesis screening BI 11/13/24 Z12.31 - Encounter for screening mammogram for malignant neoplasm of breast Rheumatoid Factor 11/13/24 M19.041 - Primary osteoarthritis, right hand, M19.042 - Primary osteoarthritis, left hand C Reactive Protein 11/13/24 M19.041 - Primary osteoarthritis, right hand, M19.042 - Primary osteoarthritis, left hand Erythrocyte Sedimentation Rate 11/13/24 M19.041 - Primary osteoarthritis, right hand, M19.042 - Primary osteoarthritis, left hand Cyclic Citrullinated Peptide 11/13/24 M19.041 - Primary osteoarthritis, right hand, M19.042 - Primary osteoarthritis, left hand, M25.50 - Pain in unspecified joint XR DEXA axial skeleton 11/13/24 Z78.0 - Asymptomatic menopausal state Uric Acid 11/13/24 M25.50 - Pain in unspecified joint HLA B27 11/13/24 M25.50 - Pain in unspecified joint Referrals Sleep Medicine Referral G47.9 - Sleep disorder, unspecified REVENUE RESEARCH ANALYST Referral Z12.4 - Encounter for screening for malignant neoplasm of cervix Gastroenterology Referral Z12.11 - Encounter for screening for malignant neoplasm of colon Medications: New cholecalciferol (vitamin D3) 50 mcg PO DAILY 90 caps 3RF 90 days E55.9 - V itamin D deficiency, unspecified
--- OUTSIDE RECORDS SUMMARY | 2024-11-13 19:17 | XMS_ITS | Clinical Summary ---
Author Organization [employer] [facility] Address [address] [place] [address] Care Team Providers Care Medical Secretary Teacher Name Role Phone Juan Carpenter MD Primary Care Provider Surgical History Surgery Date Site/Laterality Comments CATARACT EXTRACTION PROCEDURE: HISTORICAL CATARACT REMOVAL TONSILLECTOMY PROCEDURE: HISTORICAL TONSILLECTOMY WRIST SURGERY PROCEDURE: HISTORICAL WRIST SURGERY; COMMENT: left for fracture COLONOSCOPY 09/29/10 PROCEDURE: HISTORICAL COLONOSCOPY; COMMENT: normal; repeat in ten years OTHER SURGICAL HISTORY 06/22 PROCEDURE: [place] ARTHRP ACETBLR/PROX FEM PROSTC AGRFT/ALGRFT; COMMENT: left [...] age to complete this topic Care Teams Medical Secretary Teacher Relationship Specialty Start Date End Date Juan Carpenter MD [address] [place] [address] [address] [place] PCP - General Internal Medicine 10/02/12
== END 2024-11-13 17:57 | disposition home or self-care (01) ==
LOC: HO.HMCH 17:18
PROVIDERS: PCP Internal Medicine; Visit Provider Internal Medicine
DX: Z00.00 Encounter for general adult medical examination without abnormal findings (principal); E78.00 Pure hypercholesterolemia, unspecified; J45.20 Mild intermittent asthma, uncomplicated; D64.9 Anemia, unspecified; R53.82 Chronic fatigue, unspecified; E55.9 Vitamin D deficiency, unspecified; M19.041 Primary osteoarthritis, right hand; M19.042 Primary osteoarthritis, left hand; M16.11 Unilateral primary osteoarthritis, right hip; M17.11 Unilateral primary osteoarthritis, right knee; L81.9 Disorder of pigmentation, unspecified; F32.81 Premenstrual dysphoric disorder; F17.200 Nicotine dependence, unspecified, uncomplicated; Z12.11 Encounter for screening for malignant neoplasm of colon; Z12.31 Encounter for screening mammogram for malignant neoplasm of breast; Z12.4 Encounter for screening for malignant neoplasm of cervix; Z53.20 Procedure and treatment not carried out because of patient's decision for unspecified reasons

== ENCOUNTER 2024-11-28 14:00 | Outpatient (REF) | payer OTHER, SELFPAY ==
--- NOTE | ~2024-11-28 | XR_ITS ---
EXAMINATION: XR HAND/WRIST, RIGHT XR HAND/WRIST, LEFT CLINICAL INFORMATION: M19.041 - Primary osteoarthritis, right hand COMPARISON: None TECHNIQUE: Three views of the each hand and wrist. FINDINGS: RIGHT HAND/WRIST: Normal bone mineralization. No fracture or dislocation. No periarticular osteopenia. There are arthritic changes within the wrist involving the radiocarpal joint, STT joints, and first CMC joint. There are MCP joint arthritic changes most predominant involving the second and third MCPs. There are arthritic changes throughout the interphalangeal joints, most significant involving the second digit and third digit DIP joints, and fifth digit PIP joint. No soft tissue abnormalities. LEFT HAND/WRIST: Normal bone mineralization. No fracture or dislocation. No periarticular osteopenia. There are arthritic changes in the wrist with radiocarpal joint space loss, with widening of the scapholunate interval, dorsal lunate tilt, and moderate arthritis in the first CMC joint and STT joints. No blunting of the ulnar styloid. While there is involvement of the first MCP joint, there is sparing of the second through fourth MCPs. There are arthritic changes throughout the interphalangeal joints, most notable involving the second and third digit DIP joints, and third and fourth digit PIP joints. There are subtle marginal erosions. No soft tissue abnormalities. XR/XR Hand Bilat min 3v IMPRESSION: 1. Findings of inflammatory arthropathy within both hands and wrists, most severe involving the left wrist. Predominant feature is bony proliferative changes without periarticular osteopenia. There are subtle erosions present. Psoriatic arthritis is a predominant consideration. Early primary erosive osteoarthritis is a secondary consideration. 2. Widening of the scapholunate interval left wrist with severe arthritis radiocarpal joint, findings suggesting early SLAC changes. Electronically signed by: Yeyo Cerna MD 11/30/2024 10:33 AM EDT
[2024-11-28 14:54] LABS: Rheumatoid Factor 22.7 IU/mL (<15.0)
[2024-11-28 14:56] LABS: C Reactive Protein 0.21 mg/dL (< or = 0.50); Uric Acid 4.4 mg/dL (2.4-5.7)
[2024-11-28 15:45] LABS: Erythrocyte Sedimentation Rate 13 MM/HR (0-20)
--- OUTSIDE RECORDS SUMMARY | 2024-11-28 16:52 | XMS_ITS | Clinical Summary ---
Author Organization [facility] Address [address] [place] [address] Care Team Providers Care Muck Miner Blasting Name Role Phone Juan Carpenter MD Primary Care Provider Surgical History Surgery Date Site/Laterality Comments CATARACT EXTRACTION PROCEDURE: HISTORICAL CATARACT REMOVAL TONSILLECTOMY PROCEDURE: HISTORICAL TONSILLECTOMY WRIST SURGERY PROCEDURE: HISTORICAL WRIST SURGERY; COMMENT: left for fracture COLONOSCOPY 09/29/10 PROCEDURE: HISTORICAL COLONOSCOPY; COMMENT: normal; repeat in ten years OTHER SURGICAL HISTORY 06/22 PROCEDURE: [place] ARTHRP ACETBLR/PROX FEM PROSTC AGRFT/ALGRFT; COMMENT: left [...] - 2023-2 5 season) 2024 Influenza Vaccine (Season Ended) 2025 04/18/2012, 05/07/2011, 05/11/2010 RSV Immunization Adult Patients (1 [...] age to complete this topic Care Teams Muck Miner Blasting Relationship Specialty Start Date End Date Juan Carpenter MD [address] [place] [address] [address] [place] PCP - General Internal Medicine 10/02/12
[2024-11-29 10:57] LABS: Cyclic Citrullinated Peptide <16 UNITS
== END 2024-11-28 14:01 | disposition home or self-care (01) ==
LOC: HO.XRAY 14:00
PROVIDERS: PCP Internal Medicine; Visit Provider Internal Medicine
DX: M19.041 Primary osteoarthritis, right hand (principal); M19.042 Primary osteoarthritis, left hand; M25.50 Pain in unspecified joint
CPT/HCPCS: 36415; 73130; 84550; 85652; 86038; 86140; 86200; 86431; 86812

== ENCOUNTER → 2024-11-28 14:18 | Outpatient (BNV) | payer OTHER, SELFPAY | PROVIDERS: PCP Internal Medicine; Visit Provider Radiology Diagnostic Radiology | DX: M19.041 Primary osteoarthritis, right hand (principal); M19.042 Primary osteoarthritis, left hand | CPT/HCPCS: 73130 ==

== ENCOUNTER 2025-01-08 11:05 | Outpatient (REF) | payer OTHER, SELFPAY ==
--- NOTE | ~2025-01-08 | MM_ITS ---
EXAMINATION: MM SCREENING DIGITAL BREAST TOMOSYNTHESIS, BILATERAL CLINICAL INFORMATION: Screening. Asymptomatic. COMPARISON: Mammography: Comparison is made with available priors TECHNIQUE: Digital breast mammography with tomosynthesis is performed in both the craniocaudal and mediolateral oblique views along with computer-aided detection (CAD). FINDINGS: There are scattered areas of fibroglandular density (ACR BI-RADS breast composition Category b). There are no significant masses, abnormal calcifications, or other abnormalities. MM/MM tomosynthesis screening BI IMPRESSION: No mammographic evidence of malignancy. ASSESSMENT: BI-RADS BI-RADS 1 - Negative RECOMMENDATION: Routine annual mammography screening. 1 year F/U This examination should not preclude the clinical evaluation of a suspicious palpable abnormality. This patient's information was entered into a reminder system with a target due date for their next mammogram. Electronically signed by: Flory Chakraborty DO 01/13/2025 01:07 PM EDT
--- NOTE | ~2025-01-08 | MM_ITS ---
EXAMINATION: DXA BONE DENSITY AXIAL HISTORY: Z78.0 - Asymptomatic menopausal state TECHNIQUE: Vend-a-Bar Dual energy absorptiometry (DEXA) of the lumbar spine and distal forearm was performed. The hips are not evaluated due to a history of bilateral total hip arthroplasty. COMPARISON: There are no prior studies for comparison. FINDINGS: The bone mineral density of the lumbar spine is 0.863, corresponding to a T-score of -2.8, and a Z-score of -0.8. This is indicative of osteoporosis. The bone mineral density of the distal radius is 0.676, corresponding to a T-score of -2.3, and a Z-score of -0.9. This is indicative of osteopenia. MM/XR DEXA axial skeleton IMPRESSION: Based on bone mineral density, and according to World Health Organization (WHO) criteria, the diagnosis is consistent with osteoporosis. All bone density values are in grams per centimeter squared (g/cm2). Statistically, 68% of repeat scans fall within 1 SD (+/- 0.010 g/cm2 for AP spine L1-L4) and 1 SD (+/- 0.012 g/cm2 for femur total) FRAX is a trademark of the [employer]'s [place] [facility] Metabolic Bone Disease, a World Health Organization (WHO) Collaborating Center. Electronically signed by: Kobe Scott MD 01/08/2025 01:51 PM EDT
--- OUTSIDE RECORDS SUMMARY | 2025-01-08 12:48 | XMS_ITS | Clinical Summary ---
Author Organization [address] [facility] Address [address] [place] [address] Phone Care Team Providers Care Gum Remover Name Role Phone Juan Carpenter MD Primary Care Provider Allergies No known active allergies Medications Hospital, Clinic, or Other Facility Administered Medication Ordered Dose Route Frequency Start Date End Date Status triamcinolone acetonide (KENALOG-40) 40 mg/mL injection 40 mgIndications:Trigge r finger, right middle finger 40 mg IAtc Once PRN Procedure 01/02/2025 01/02/2025 Ended Encounters Date Type Department Care Team Description 01/02/2025 10:00 AM EDT Consult Orthopedic Surgery [facility] [address] [facility] [address] [place] [address] Palak Romero PA Trigger finger, right middle finger (Primary Dx); Right hand pain; Arthritis of right hand; Chronic pain of right knee from Last 3 Months Surgical History Surgery Date Site/Laterality Comments CATARACT [...] Sexual Orientation Not on file Obstetrics History Last Filed Vital Signs Vital Sign Reading Time Taken Comments Blood Pressure - - Pulse - - Temperature - - Respiratory Rate - - Oxygen Saturation - - Inhaled Oxygen Concentration - - Weight 53.5 kg (118 lb) 01/02/2025 10:30 AM EDT Height 157.5 cm (5' 2 ) 01/02/2025 10:30 AM EDT Body Mass Index 21.58 01/02/2025 10:30 AM EDT Plan of Treatment Upcoming Encounters Date Type Department Care Team (Late st Contact Info) Description 01/16/2025 1:00 PM EDT Consult Orthopedic Surgery - [address] [id number] Melody Gonzales NP 175 [facility] [address] [place] [address] Health Maintenance Due Date Last Done Comments Breast Cancer Screening 1960 Cervical Cancer Screening: P ap Smear 12/17/1980 Pneumococcal Vaccine: 50+ Years (1 of 1 - PCV) 12/17/2009 Zoster Vaccines (1 of 2) 12/17/2009 DTaP,Tdap,and Td Vaccines (2 - Td or Tdap) 09/04/2020 09/04/2010 COVID-19 Vaccine (1 - 2023-2 5 season) 2024 Colorectal Cancer Screening: Colonoscopy 12/08/2024 Depression Screening 12/08/2024 Hepatitis C Screening 12/08/2024 Osteoporosis Screening (Bone Density Screening) 12/08/2024 Social Influencers of Health Screening 12/08/2024 Falls Risk Assessment 12/17/2024 Influenza Vaccine (Season Ended) 2025 04/18/2012, 05/07/2011, [...] on patient's age to complete this topic Procedures Procedure Name Priority Date/Time Associated Diagnosis Comments MI INJECTION SINGLE TENDON SHEATH OR LIGAMENT APONEUROSIS Routine 01/02/2025 10:00 AM EDT Trigger finger, right middle finger from Last 3 Months Results * MI INJECTION SINGLE TENDON SHEATH OR LIGAMENT APONEUROSIS (01/02/2025 10:00 AM EDT) Narrative Palak Romero PA - 01/02/2025 10:00 AM EDT PEMA Aviles ? 01/02/2025 ??1:41 PM Hand / UE Inj/Asp: R long A1 for trigger finger Indications: pain Details: 27 G needle, volar approach Medications: 40 mg triamcinolone acetonide 40 mg/mL Outcome: tolerated well, no immediate complications Site was prepped in standard fashion using alcohol swab, sterile technique was used to perform the injection, the patient tolerated the procedure well and a band-aid dressing was applied Informed Consent: ??Laterality: ??Right ??Relevant images/test results available and reviewed: yes ?Health status cleared: ??Yes ??Procedure/treatment, purpose, treatment alternatives, risks/potential complications and benefits explained: yes ?Risk/complications/benefits details: ??Risks and benefits of corticosteroid injection were discussed, including risk of pain, bleeding, infection, tissue attenuation, tendon rupture, changes in skin color, and injury to surrounding structures such as arteries, veins and nerves. We also discussed the patient may develop worsening pain for a few days before having improvement in their symptoms. ??Patient questions answered: yes ?Patient agrees, verbalizes understanding, and wants to proceed: yes ?Consent given by: ??Patient ??Informed consent discussion completed by Physician/ELLIOT with patient: ?? Verbal ??Pre-procedure timeout performed: yes ?? us Palak MCADAMS IN CLINIC/BEDSIDE ORDERABLES Ed ited Result - Final from Last 3 Mon[place] [address] MEDICAID - [place] [facility] Member Subscriber Plan / Payer (Ef fective 2019-Present) Name:RADHA RYAN Relation to Subscriber:Self Name:Radha Ryan Payer ID:[id number] Group ID:[id number] Type:Not on file Address: [address] [place] [id number] Care Teams Gum Remover Relationship Specialty Start Date End Date Juan Carpenter MD [address] [place] [address] [facility] [place] PCP - General Internal Medicine 10/02/12
== END 2025-01-08 11:06 | disposition home or self-care (01) ==
LOC: HO.MAMMO 11:05
PROVIDERS: PCP Internal Medicine; Visit Provider Internal Medicine
DX: Z12.31 Encounter for screening mammogram for malignant neoplasm of breast (principal); Z13.820 Encounter for screening for osteoporosis; Z78.0 Asymptomatic menopausal state; Z96.643 Presence of artificial hip joint, bilateral
CPT/HCPCS: 77063; 77067; 77080

== ENCOUNTER → 2025-01-08 11:30 | Outpatient (BNV) | payer OTHER, SELFPAY | PROVIDERS: PCP Internal Medicine; Visit Provider Radiology Diagnostic Radiology | DX: E28.39 Other primary ovarian failure (principal) | CPT/HCPCS: 77080 ==

== ENCOUNTER 2025-03-29 10:22 | Outpatient (REF) | payer OTHER, SELFPAY ==
--- OUTSIDE RECORDS SUMMARY | 2025-03-29 10:26 | XMS_ITS | Clinical Summary ---
Author Organization 175 [facility] Address [address] [place] [address] Phone Care Team Providers Care Nursing Education Consultant Name Role Phone Juan Carpenter MD Primary Care Provider Allergies No known active allergies Medications diclofenac sodium (VOLTAREN TOP) Place on the skin. Active naproxen sodium (ALEVE ORAL) Take by mouth. Ac tive cholecalciferol (VITAMIN D-3) 50 mcg (2,000 unit) capsule take 1 capsule (50 mcg) orally daily for 90 days Active naproxen (NAPROSYN) 500 mg tablet TAKE 1 TABLET BY MOUTH TWICE A DAY NEEDED FOR PAIN FOR 7 DAYS 5 Active diclofenac (VOLTAREN) 1 % topical gel APPLY 2 GRAMS TOPICALLY 4 TIMES A DAY FOR 10 DAYS 5 Active Active Problems Problem Noted Date Diagnosed Date Iron deficiency anemia 01/16/2025 Overview (01/16/2025): uses supplemental iron around menstrual cycle Rheumatoid arthritis involvi ng both feet with positive rheumatoid factor ([facility] V24, [facility] V28) 08/30/2019 Rotator cuff tear 05/14/2013 Overview (01/16/2025): Right, on MRI 2012 - not felt repairable Carpal tunnel syndrome 04/03/2013 Overview (01/16/2025): 2012 EMG/NCT: mild on right Allergic rhinitis 11/03/2009 Encounters Date Type Department Care Team Description 01/16/2025 1:00 PM EDT Consult Orthopedic Surgery - [place] [address] [facility] [address] [place] [address] Melody Gonzales NP Post-traumatic osteoarthritis of right knee (Primary Dx); Right knee pain 01/02/2025 10:00 AM EDT Consult Orthopedic Surgery [facility] 175 [facility] [address] [place] [address] Palak Romero PA Trigger finger, [...] ten years OTHER SURGICAL HISTORY 06/22 PROCEDURE: CO ARTHRP ACETBLR/PROX FEM PROSTC AGRFT/ALGRFT; COMMENT: left [...] - Inhaled Oxygen Concentration - - Weight 51.7 kg (114 lb) 01/16/2025 1:10 PM EDT Height 157.5 cm (5' 2.01 ) 01/16/2025 1:10 PM ED T Body Mass Index 20.85 01/16/2025 1:10 PM EDT Plan of Treatment Health Maintenance Due Date Last Done Comments Breast Cancer Screening 1960 Cervical Cancer Screening: P ap Smear 12/17/1980 Pneumococcal Vaccine: 50+ Years (1 of 1 - PCV) 12/17/2009 Zoster Vaccines (1 of 2) 12/17/2009 DTaP,Tdap,and Td Vaccines (2 - Td or Tdap) 09/04/2020 09/04/2010 COVID-19 Vaccine (1 - 2023-2 5 season) 2024 Depression Screening 08/08/2024 Colorectal Cancer Screening: Colonoscopy 12/08/2024 Hepatitis C Screening 12/08/2024 Medicare Annual Wellness Visit 12/08/2024 Osteoporosis Screening (Bone Density Screening) 12/08/2024 Social Influencers of Health Screening 12/08/2024 Falls Risk Assessment 12/17/2024 Influenza Vaccine (#1) 2025 2, 05/07/2011, 05/11/2010 RSV Immunization Adult Patients [...] Procedure Name Priority Date/Time Associated Diagnosis Comments XR KNEE 4+ VIEWS RIGHT Routine 01/16/2025 1:08 PM EDT Right knee pain CO ARTHROCENTESIS/ASPI RATION/INJECTION MAJOR JOINT/BURSA W/O U/S GUIDANCE Routine 01/16/2025 1:00 PM EDT Post-traumatic osteoarthritis of right knee CO INJECTION SINGLE TENDON SHEATH OR LIGAMENT APONEUROSIS Routine 01/02/2025 10:00 AM EDT Trigger finger, right middle finger from Last 3 Months Results * XR Knee 4+ Views Right (01/16/2025 1:08 PM EDT) Anatomical Region Laterality Modality Lower Extremities, Knee Right Computed Radiography Narrative 01/16/2025 3:00 PM EDT Date of Visit: 01/16/2025 Reason for visit: Right knee right pain Views: AP, Lateral, Lopez, [place] right knee Findings: Right knee shows severe narrowing through the lateral compartment with subchondral sclerosis, marginal osteophytes. Further narrowing with complete closure of the lateral compartment on Lopez view. Mild to moderate DJD through the patellofemoral compartment on sunrise view. No fractures. No bony lesions identified. Impression: Right knee osteoarthritis, greatest in the lateral compartment Melody Gonzales DESKTOP MANAGER IMG XR PROCEDURES Final Result * CO ARTHROCENTESIS/ASPIRATION/INJECTION MAJOR JOINT/BURSA W/O U/S GUIDANCE (01/16/2025 1:00 PM EDT) Kvng Camargo MD - 01/16/2025 1:00 PM EDT Melody Gonzales NP 01/16/2025 3:03 PM L Inj/Asp: R knee Indications: pain Details: 25 G needle, anterolateral approach Medications: 80 mg triamcinolone acetonide 40 mg/mL; 3 mL lidocaine 1 % Outcome: tolerated well, no immediate complications Informed Consent: Laterality: Right Relevant images/test results available and reviewed: yes Health status cleared: Yes Procedure/treatment, purpose, treatment alternatives, risks/potential complications and benefits explained: yes Risk/complications/benefits details: Risks and benefits associated with the injection reviewed which can include but not limited to infection, bleeding, bruising, transient synovitis, no improvement in symptoms. Patient questions answered: yes Patient agrees, verbalizes understanding, and wants to proceed: yes Consent given by: Patient Informed consent discussion completed by Physician/ELLIOT with patient: Verbal Pre-procedure timeout performed: yes Melody Gonzales DESKTOP MANAGER IN CLINIC/BEDSIDE ORDER [place] Final Result * CO INJECTION SINGLE TENDON SHEATH OR LIGAMENT APONEUROSIS (01/02/2025 10:00 AM EDT) Palak Rosenbaum PA - 01/02/2025 10:00 AM EDT PEMA Aviles 01/02/2025 1:41 PM Hand / UE Inj/Asp: R long A1 for trigger finger Indications: pain Details: 27 G needle, volar approach Medications: 40 mg triamcinolone acetonide 40 mg/mL Outcome: tolerated well, no immediate complications Site was prepped in standard fashion using alcohol swab, sterile technique was used to perform the injection, the patient tolerated the procedure well and a band-aid dressing was applied Informed Consent: Laterality: Right Relevant images/test results available and reviewed: yes Health status cleared: Yes Procedure/treatment, purpose, treatment alternatives, risks/potential complications and benefits explained: yes Risk/complications/benefits details: Risks and benefits of corticosteroid injection were discussed, including risk of pain, bleeding, infection, tissue attenuation, tendon rupture, changes in skin color, and injury to surrounding structures such as arteries, veins and nerves. We also discussed the patient may develop worsening pain for a few days before having improvement in their symptoms. Patient questions answered: yes Patient agrees, verbalizes understanding, and wants to proceed: yes Consent given by: Patient Informed consent discussion completed by Physician/ELLIOT with patient: Verbal Pre-procedure timeout performed: yes Palak MCADAMS IN CLINIC/BEDSIDE ORDERABLES Ed ited Result - Final from Last 3 Months Insurance [facility] Member Subscriber Plan / Payer (Ef fective 2019-Present) Name:RADHA RYAN Relation to Subscriber:Self Name:Radha Ryan Payer ID:[id number] Group ID:[id number] Type:Not on file Address: [address] [place] [id number] [employer] MEDIC[employer] Member Subscriber Plan / Payer (Ef fective 2019-Present) Name:RADHA RYAN Relation to Subscriber:Self Name:Radha Ryan Payer ID:[id number] Group ID:[id number] Type:Not on file Address: [address] [place] [id number] Care Teams Nursing Education Consultant Relationship Specialty Start Date End Date Juan Carpenter MD [address] [place] [address] [address] JEFFERSON Conrad PCP - General Internal Medicine 10/02/12
[2025-03-29 10:46] LABS: MANUAL DIFF FLAG NO
[2025-03-29 11:31] LABS: Hematocrit 40.0 % (37.0-47.0); Hemoglobin 13.7 g/dl (12.0-16.0); Imm Gran Abs Auto 0.02 X10*3/uL (0.00-0.03); Imm Gran Pct Auto 0.3 % (0.0-0.4); Lymphocytes Absolute Auto 1.5 X10*3/uL (1.2-4.9); Mean Corpuscular HGB Conc 34.3 g/dl (31.0-35.0); Mean Corpuscular Hemoglobin 31.0 pg (27.0-33.0); Mean Corpuscular Volume 90.5 fL (80.0-98.0); NRBC Abs Auto 0.000 X10*3/uL (0.0-0.012); NRBC Pct Auto 0.0 /100WBC (0.0-0.2); Platelet Count 178 X10*3/uL (160-400); Red Blood Count 4.42 X10*6/uL (4.20-5.50); White Blood Count 6.7 X10*3/uL (4.8-10.8)
[2025-03-29 11:43] LABS: Appearance Urine Clear; Glucose Urine UA Negative (Negative); PH 6.5 (5.0-9.0); Specific Gravity - Urine 1.015 (1.005-1.025); UMIC TRIGGER UACC YES
[2025-03-29 12:16] LABS: Alanine Aminotransferase 28 U/L (0-31); Albumin Level 4.3 g/dL (3.5-5.0); Alkaline Phosphatase 80 U/L (39-117); Anion Gap 12 (12-20); Aspartate Amino Transferase 36 U/L (5-31); Blood Urea Nitrogen 22 mg/dL (9-16); Calcium 9.3 mg/dL (8.4-10.2); Carbon Dioxide 25 mmol/L (22-29); Chloride 107 mmol/L (96-108); Cholesterol 174 mg/dL (<200); Estimated Glomerular Filt Rate > 60; HDL Cholesterol 51 mg/dL (>40); Potassium 4.2 mmol/L (3.3-5.1); Sodium 140 mmol/L (135-145); Total Protein 7.0 g/dL (6.5-8.0); Triglycerides 53 mg/dL (<150)
== END 2025-03-29 10:23 | disposition home or self-care (01) ==
LOC: HO.LAB 10:22
PROVIDERS: PCP Internal Medicine; Visit Provider Internal Medicine
DX: E78.00 Pure hypercholesterolemia, unspecified (principal); E55.9 Vitamin D deficiency, unspecified; D64.9 Anemia, unspecified
CPT/HCPCS: 36415; 80053; 80061; 81001; 82306; 84443; 85025

== ENCOUNTER 2025-04-01 16:53 | Outpatient (AMB) | payer OTHER, SELFPAY ==
--- NOTE | 2025-04-01 17:01 | A.OFFPC_ITS ---
Vital Signs 04/01/25 17:03 Height 5 ft 2 in Weight 112 lb 2 oz BMI 20.5 BP 122/68 Blood Pressure Location Lt brachial Position Sitting Pulse 73 Pulse Source Pulse Oximeter Temp 97.3 F Temp Source Temporal Artery Scan Pulse Oximetry (%) 95 Oxygen Delivery Method Room Air Intake Visit Reasons: 4 Months Intake Note: Patient is here to follow up on OA, Hypercholesterolemia. Teacher Emotionally Impaired Required: No Refrigerator Cabinetmaker: Not Required per policy Accompanied by: Self / Same As Patient Allergies codeine Adverse Reaction (Intermediate, Verified 04/01/25 17:35) nausea and vomitting Medication List - Last Reconciled 04/01/25 by Juan Carpenter MD blood pressure monitor As directed celecoxib 200 mg PO BID 30 days cholecalciferol (vitamin D3) 50 mcg PO DAILY 90 days diclofenac sodium 1% 2 grams topical QID [Grab Bar As directed] [Leg Website/Blog Editor As directed] xbulegsf-elt-tckh-FA-vit K-lut 4 mg iron-200 mcg-25 mcg (Centrum Minis Women 50 Plus) 1 tab PO DAILY naproxen 500 mg PO BID [Raised toilet seat As directed] [SHOWER CHAIR As directed] [stackable bath steps As directed] walker Folding Front wheeled walker Tobacco use date assessed: 04/01/25 Fall risk assessment: No Falls in past year Last assessed Fall Risk: 04/01/25 Dental Screening Dental Screen Date: 11/13/24 [facility] Medical History (Updated 04/01/25 @ 17:50 by Juan Carpenter MD) Degenerative joint disease of right knee Rheumatoid arthritis Arthritis Bowel obstruction Swelling of lower extremity Elevated cholesterol History of opiate therapy Vitamin D deficiency Pure hypercholesterolemia Primary osteoarthritis of right hip Depression Osteoporosis Knee locking Osteoarthritis of hip Surgical History History of revision of total replacement of right hip joint History of total right hip replacement (12/13/23) Hx of arthroscopy of right knee History of total left hip arthroplasty Hx of bilateral cataract extraction Hx of colonoscopy Hx of section H/O left wrist surgery Family History (Updated 04/01/25 @ 17:01 by YONI Morales) Father Cancer Mother Bone cancer Osteoporosis Social History Household Members: Children Housing: House Are you a primary primary health care nurse to a significant other at home: No Do you presently have visiting nurse or other home services: No Alcohol intake: current Alcohol intake frequency: does not drink Patient Tobacco Use Status: Current everyday Tobacco user Tobacco use type: Cigarette Cigarette Packs Per Day: 0.5 Cigarettes Per Day: 10 e-Cigarette/Vaping Use: Never Used Second Hand Smoke Exposure: Yes Substance Use Type: Prescription Drugs service: No Current occupational status: disabled Current occupation: rt handed Cognitive needs: No Hearing needs: No Vision needs: Yes (Glasses) Questionnaire Thrive Questionnaire Date Thrive assessed: 11/13/24 I am a: Patient What is your living situation today?: I have a steady place to live Within the past 12 months, did the food you bought not last and you didn't have the money to get more?: Never true Within the past 12 months, did you worry whether your food would run out before you got money to buy more?: Sometimes True Do you have trouble paying for medicines?: No Do you have trouble getting transportation to medical appointments?: No Do you have trouble paying your heating and electricity bill?: Yes Do you have trouble taking care of your child, family member or friend?: No Do you have trouble with day-to-day activities such as bathing, preparing meals, shopping, managing finances, etc.?: Yes Are you currently unemployed and looking for a job?: No Are you interested in more education?: No Please select the resources that you would like help with: None Currently or been in a relationship where the following occur: No concerns reported THRIVE Score: 2 AUDIT C Alcohol Use Questionnaire (AUDIT-C) 3. How often do you have six or more drinks on one occasion?: Never Total Score: 0 YANICK-7 AMB Questionnaire YANICK-7 Date YANICK - 7 assessed: 11/13/24 Source: Developed by Drs. Kobe Maldonado, Rose James, Du Garcia and colleagues, with an educational avis from [employer]. Physical exam (Primary Care) Vital Signs: Last Vital Signs Temp 97.3 F 04/01/25 17:03 Pulse 73 04/01/25 17:03 BP 122/68 04/01/25 17:03 Pulse Ox 95 04/01/25 17:03 Oxygen Delivery Method Room Air 04/01/25 17:03 BMI result Body Mass Index 20.5 Tobacco/Smoking Status: Tobacco use Status Tobacco use date assessed 04/01/25 04/01/25 17:07 Patient Tobacco Use Status Current everyday Tobacco 04/01/25 17:07 Tobacco use type Cigarette 04/01/25 17:07 e-Cigarette/Vaping Use Never Used 04/01/25 17:07 Thrive Assessment: Date of Thrive Assessment Date Thrive assessed 11/13/24 04/01/25 17:07 Currently or been in a relationship where the following occur: No concerns reported Immunizations Tenivac (PF) 5 Lf unit-2 Lf unit/0.5 mL intramuscular syringe Performing Provider: Juan Carpenter MD [facility] Administered by: YONI Morales on 04/01/25 17:56 Dose Route Admin Location Dispensed Lot Number Expiration Date NDC Peanut Vendor 0.5 mL IM Right Deltoid 0.5 mL [id number] 11/25/26 87807-802-05 [employer] Total Dispensed Waste 0.5 mL 0 % VIS Given Date VIS Provided VIS Publication Date 04/01/25 Single Vaccine 21 Eligibility Eligibility Date Funding Source [facility] Eligible-Medicaid 04/01/25 Private Administration Comments: Vaccine given by Dr Carpenter Results Reviewed Results Reviewed: Laboratory Tests 03/29/25 03/29/25 10:36 10:43 WBC 6.7 Hgb 13.7 Hct 40.0 Plt Count 178 Sodium 140 Potassium 4.2 Creatinine 0.83 Estimated GFR > 60 Fasting Glucose 71 Calcium 9.3 AST 36 H ALT 28 Triglycerides 53 Cholesterol 174 LDL Cholesterol, Calc 113 H HDL Cholesterol 51 25-OH Vitamin D Total 63.1 TSH 1.14 Ur Specific [place] 1.015 Urine Protein Negative Urine Glucose (UA) Negative Urine Blood Negative Urine Nitrite Negative Ur Leukocyte Esterase Trace H Coding Assessment & Plan Assessment & Plan Orders: Orders Td Immunization Today Z23 - Encounter for immunization Referrals Rheumatology Referral M06.9 - Rheumatoid arthritis, unspecified Medications: New alendronate To be taken first thing in the morning on an empty stomach with a full glass of water; patient has to stay upright for at least the next 30 minutes and should not eat or drink anything else for 30 to 60 minutes after taking the medication 70 mg PO QWEEK 13 tabs 1RF 3 months nicotine 1 patch transdermal Q24H 28 ea 5RF 28 days F17.200 - Nicotine dependence, unspecified, uncomplicated nicotine 1 patch transdermal DAILY 7 ea 0RF 7 days F17.200 - Nicotine dependence, unspecified, uncomplicated nicotine 1 patch transdermal DAILY 7 ea 0RF 7 days F17.200 - Nicotine dependence, unspecified, uncomplicated
[2025-04-01 17:03] VITALS: BP 122/68; PULSE 73; TEMP 36.3; O2SAT 95; BMI 20.5
== END 2025-04-01 18:00 | disposition home or self-care (01) ==
LOC: HO.HMCH 16:54
PROVIDERS: PCP Internal Medicine; Visit Provider Internal Medicine
DX: Z23 Encounter for immunization (principal)

== ENCOUNTER → 2025-04-01 16:53 | Outpatient (BNVA) | payer OTHER, SELFPAY | PROVIDERS: PCP Internal Medicine; Visit Provider Internal Medicine | DX: J45.20 Mild intermittent asthma, uncomplicated (principal); E78.00 Pure hypercholesterolemia, unspecified; D64.9 Anemia, unspecified; M05.9 Rheumatoid arthritis with rheumatoid factor, unspecified; M81.0 Age-related osteoporosis without current pathological fracture; R53.82 Chronic fatigue, unspecified; E55.9 Vitamin D deficiency, unspecified; M19.041 Primary osteoarthritis, right hand; M19.042 Primary osteoarthritis, left hand; M17.11 Unilateral primary osteoarthritis, right knee; F32.81 Premenstrual dysphoric disorder; F17.210 Nicotine dependence, cigarettes, uncomplicated; Z23 Encounter for immunization | CPT/HCPCS: 90471; 90714; 99212 ==

== ENCOUNTER 2025-07-12 13:03 | Outpatient (AMB) | payer OTHER, SELFPAY ==
--- NOTE | 2025-07-12 13:16 | A.OFFVIS_ITS ---
Vital Signs 07/12/25 13:17 Height 5 ft 2 in Weight 115 lb 8.356 oz BMI 21.1 BP 129/62 Blood Pressure Location Lt brachial Position Sitting Pulse 60 Pulse Oximetry (%) 98 Oxygen Delivery Method Room Air Intake Visit Reasons: colo screen Intake Note: New patient in office today for colonoscopy screening. CC: Patient denies having any GI symptoms or concerns. Last colonoscopy when she was 49 per patient at [facility]. It Service Continuity Supervisor Required: No Accompanied by: Self / Same As Patient Allergies codeine Adverse Reaction (Intermediate, Verified 07/12/25 13:19) nausea and vomitting Medication List - Last Reconciled 07/12/25 by Sepideh Mcallister CNP alendronate 70 mg PO QWEEK 3 months blood pressure monitor As directed cholecalciferol (vitamin D3) 50 mcg PO DAILY 90 days diclofenac sodium 1% 2 grams topical QID [Grab Bar As directed] [Leg Brusher As directed] magnesium oxide 1,000 mg PO DAILY xdiniika-xla-dtes-FA-vit K-lut 4 mg iron-200 mcg-25 mcg (Centrum Minis Women 50 Plus) 1 tab PO DAILY naproxen 500 mg PO BID nicotine 1 patch transdermal Q24H 28 days nicotine 1 patch transdermal DAILY 7 days nicotine 1 patch transdermal DAILY 7 days [Raised toilet seat As directed] [SHOWER CHAIR As directed] [stackable bath steps As directed] walker Folding Front wheeled walker HPI HPI colo screen: Details: Patient is a 64-year-old female with PMH of depression, RA, osteoporosis . Referred by PCP for pre colonoscopy screening Patient reports no current concerns with bowel movements, reports daily BM without diarrhea or constipation and no difficulty with complete evacuation. Appetite is good and there is no recent unexplained weight loss; weight remains stable in the one-teens. No prior GI diagnoses and previously normal colonoscopy at age 49( [facility]). Ongoing management for osteoporosis with prescription medication, and history of mildly elevated liver levels noted on recent fasting labs. Cholesterol previously controlled with medication and now managed with dietary modification. No current GI symptoms; no new medications impacting GI status except for continued use of naproxen and vitamins. Allergic (intolerant) to codeine, causing nausea. Family history notable for parental lung and bone cancer. Patient denies: fever/chills, n/v, appetite changes, pyrosis, regurgitation,dysphasia, unintentional wt loss, ab pain or melena/hematochezia. Social hx: -denies ETOH use -smokes marijuana couples/month, denies other recreational drug use -former smoker, cessation one month - family hx as below -denies personal hx of CA -denies significant cardiopulmonary history -tolerated anesthesia in the past without difficulty. [facility] Medical History (Updated 07/12/25 @ 14:09 by Sepideh Mcallister CNP) Elevated LDL cholesterol level Elevated LFTs Degenerative joint disease of right knee Rheumatoid arthritis Arthritis Bowel obstruction Swelling of lower extremity Elevated cholesterol History of opiate therapy Vitamin D deficiency Pure hypercholesterolemia Primary osteoarthritis of right hip Depression Osteoporosis Knee locking Osteoarthritis of hip Surgical History History of revision of total replacement of right hip joint History of total right hip replacement (12/13/23) Hx of arthroscopy of right knee History of total left hip arthroplasty Hx of bilateral cataract extraction Hx of colonoscopy Hx of section H/O left wrist surgery Family History (Updated 07/12/25 @ 13:39 by Sepideh Mcallister CNP) Father Cancer Mother Bone cancer Osteoporosis Social History Household Members: Children Housing: House Are you a primary senior resident care director to a significant other at home: No Do you presently have visiting nurse or other home services: No Alcohol intake: current Alcohol intake frequency: does not drink Patient Tobacco Use Status: Current everyday Tobacco user Tobacco use type: Cigarette Cigarette Packs Per Day: 0.5 Cigarettes Per Day: 10 e-Cigarette/Vaping Use: Never Used Second Hand Smoke Exposure: Yes Substance Use Type: Prescription Drugs service: No Current occupational status: disabled Current occupation: rt handed Cognitive needs: No Hearing needs: No Vision needs: Yes (Glasses) Review of Systems Const Reports as per HPI ENT Reports as per HPI Card Reports as per HPI Resp Reports as per HPI GI Reports as per HPI Reports as per HPI Physical Exam Vital Signs: Last Vital Signs Pulse 60 07/12/25 13:17 BP 129/62 07/12/25 13:17 BMI result Body Mass Index 21.1 Const General: healthy appearing, no acute distress and well developed Nutritional Appearance: average body habitus Orientation/consciousness: patient oriented x3 HEENT Head: Yes normal to inspection, Yes normocephalic and Yes atraumatic Face and sinus: Yes normal facial exam Eyes General: appearance normal, both eyes and all related structures Neck Neck: Yes normal visual inspection Resp Effort & Inspection: normal respiratory effort, able to speak in complete sentences, no tracheal deviation and symmetric chest movement Cardio Jugular venous distension: no JVD Neuro General: patient oriented x3 Gait exam (Neuro): Normal gait present Psych Appearance: grossly normal Mental Status: mental status grossly normal Speech and movement: Normal speech and movement present Affect: normal affect Attitude: cooperative Thought process: Normal thought process present Thought content: Normal thought content present Insight: Good insight present (Psych) Judgement: Good judgement present (Psych) Assessment & Plan Assessment & Plan (1) Colon cancer screening: Code(s): Z12.11 - Encounter for screening for malignant neoplasm of colon Category: Medical Plan: Asymptomatic. Previously normal colonoscopy at age 49; average-risk status confirmed (no family hx of colon CA; benign personal hx). - Additional Testing: Schedule colonoscopy (order placed); no need for stool- based CRC screening due to proceeding with colonoscopy; continue routine lab monitoring (CBC, liver panel, lipids PRN). - Medication Management: Prescribe colonoscopy prep (Miralax split-dose protocol, 4 laxative tabs, Gatorade); instructions reviewed. - Lifestyle Recommendations: Follow clear liquid diet the day prior to procedure; avoid solid food; only black coffee permissible; Gatorade must not be red, blue, or purple; use sugared variety to avoid hypoglycemia. - Follow-Up: GI letter to be sent post-colonoscopy for results and instructions on timing of next screening; follow-up only as needed unless abnormal findings or symptoms develop. (2) Elevated LFTs: Code(s): R79.89 - Other specified abnormal findings of blood chemistry Category: Medical Plan: Isolated, mildly elevated liver enzymes on recent fasting labs; prior similar findings. - Additional Testing: Continue surveillance with routine liver panels; imaging not indicated at this time given clinical stability. - Medication Management: None required currently. - Lifestyle Recommendations: Continue to monitor alcohol intake; maintain chol esterol-lowering and liver-friendly diet. - Follow-Up: Monitor next routine labs; reassess if persistent or worsening LFT elevations. (3) Elevated LDL cholesterol level: Code(s): E78.00 - Pure hypercholesterolemia, unspecified Category: Medical Plan: Prior hyperlipidemia successfully managed via diet after discontinuation of statin. Additional Testing: Continue routine lipid panel monitoring. Medication Management: None at present. Lifestyle Recommendations: Maintain heart-healthy, low-cholesterol diet. Follow-Up: Continue primary care follow-up; repeat lipids per previous recommendations. (4) Osteoporosis: Code(s): M81.0 - Age-related osteoporosis without current pathological fracture Category: Medical Qualifiers: Osteoporosis type: age-related Presence of current pathological fracture: without current pathological fracture Qualified Code(s): M81.0 - Age- related osteoporosis without current pathological fracture Plan: Ongoing management with prescribed medication. - Additional Testing: Bone density as indicated by PCP; monitor for adverse effects. - Medication Management: Continue current therapy. - Lifestyle Recommendations: Ensure adequate calcium and vitamin D; appropriate fall precautions. - Follow-Up: Per PCP and medication monitoring schedule. Plan Follow-up as needed Time: I spent a total of 30 minutes on the date of encounter which includes: Preparing to see the patient (reviewed previous documentation, test results and medical history) Performing a medically appropriate exam and/or evaluation Ordering medications, tests, and procedures Documenting clinical information in the health record Orders: Referrals GI Procedure Notification Z12.11 - Encounter for screening for malignant neoplasm of colon Medications: New bisacodyl take four tablets once day of colonoscopy prep 20 mg (4 x 5 mg) PO ONCE 4 tabs 0RF polyethylene glycol 3350 (Miralax) per colonoscopy prep instructions 238 grams PO ONCE 238 grams 0RF Coding Level of Care Code New Pt New Pt Level 3 (95941) Patient Type New Diagnoses Colon cancer screening Z12.11 Elevated LFTs R79.89 Elevated LDL cholesterol level E78.00 Age-related osteoporosis without current pathological fracture M81.0 Osteoporosis type: age-related Presence of current pathological fracture: without current pathological fracture
[2025-07-12 13:17] VITALS: BP 129/62; PULSE 60; O2SAT 98; BMI 21.1
--- OUTSIDE RECORDS SUMMARY | 2025-07-12 17:00 | XMS_ITS | Clinical Summary ---
Author Organization [address] [facility] Address [address] [place] [address] Phone Care Team Providers Care Editor Map Name Role Phone Juan Carpenter MD Primary [...] ng both feet with positive rheumatoid factor (CMS/[facility] V24, [facility] V28) 08/30/2019 Rotator cuff tear 05/14/2013 Overview (01/16/2025): Right, on MRI 2012 - not felt repairable Carpal tunnel syndrome 04/03/2013 Overview (01/16/2025): 2012 EMG/NCT: mild on right Allergic rhinitis 11/03/2009 Surgical History Surgery Date Site/Laterality Comments CATARACT EXTRACTION PROCEDURE: HISTORICAL CATARACT REMOVAL TONSILLECTOMY PROCEDURE: HISTORICAL TONSILLECTOMY WRIST SURGERY PROCEDURE: HISTORICAL WRIST SURGERY; COMMENT: left for fracture COLONOSCOPY 09/29/10 PROCEDURE: HISTORICAL COLONOSCOPY; COMMENT: normal; repeat in ten years OTHER SURGICAL HISTORY 06/22 PROCEDURE: TN ARTHRP ACETBLR/PROX FEM PROSTC AGRFT/ALGRFT; COMMENT: left [...] Years Used Date Smoking Tobacco: Former Cigarettes 0.5 Q uit: 08/08/1984 Smokeless Tobacco: Never Alcohol [...] Last Done Comments Breast Cancer Screening 1959 Colorectal Cancer Screening: Colonoscopy 1959 Cervical Cancer Screening: P ap Smear 12/17/1980 Pneumococcal Vaccine: 50+ Years (1 of 1 - PCV) 12/17/2009 Zoster Vaccines (1 of 2) 12/17/2009 DTaP,Tdap,and Td Vaccines (2 - Td or Tdap) 09/04/2020 09/04/2010 Depression Screening 08/08/2024 Hepatitis C Screening 12/08/2024 Medicare Annual Wellness Visit 12/08/2024 Osteoporosis Screening (Bone Density Screening) 12/08/2024 Social Influencers of Health Screening 12/08/2024 Falls Risk Assessment 12/17/2024 COVID-19 Vaccine ( - 2024-2 6 season) 2025 Influenza Vaccine (#1) 2025 2, 05/07/2011, 05/11/2010 [...] on patient's age to complete this topic Insurance [employer] Member Subscriber Plan / Payer (Ef fective 2019-Present) Name:RADHA RYAN Relation to Subscriber:Self Name:Radha Ryan Payer ID:[id number] Group ID:[id number] Type:Not on file Address: [facility] [address] [id number] Care Teams Editor Map Relationship Specialty Start Date End Date Juan Carpenter MD [address] [place] [address] [address] JEFFERSON Conrad PCP - General Internal Medicine 10/02/12
== END 2025-07-12 13:53 | disposition home or self-care (01) ==
LOC: HO.HGI 13:04
PROVIDERS: PCP Internal Medicine; Visit Provider Nurse Practitioner Family
DX: Z01.818 Encounter for other preprocedural examination (principal); Z12.11 Encounter for screening for malignant neoplasm of colon; R74.01 Elevation of levels of liver transaminase levels; E78.00 Pure hypercholesterolemia, unspecified; M81.0 Age-related osteoporosis without current pathological fracture
CPT/HCPCS: 99024

== ENCOUNTER → 2025-07-12 13:03 | Outpatient (BNVA) | payer OTHER, SELFPAY | PROVIDERS: PCP Internal Medicine; Visit Provider Nurse Practitioner Family | DX: Z12.11 Encounter for screening for malignant neoplasm of colon (principal); E78.00 Pure hypercholesterolemia, unspecified; R79.89 Other specified abnormal findings of blood chemistry; Z71.3 Dietary counseling and surveillance; M81.0 Age-related osteoporosis without current pathological fracture; Z68.21 Body mass index [BMI] 21.0-21.9, adult | CPT/HCPCS: 99212 ==